=== PATIENT | male | born 1965 | race Hispanic/Latino ===

== ENCOUNTER 2017-05-25 13:36 | Inpatient (IN) | payer BC ==
[~2017-05-25] VITALS: Ht 175.3 cm; Wt 110.7 kg
[2017-05-25] MEDS ORDERED: ASPIRIN 81 MG CHEW TAB ONE (14:30)
[2017-05-25] MEDS ORDERED: ASPIRIN 81 MG CHEW TAB PO ONE (14:30)
[2017-05-25] MEDS ORDERED: SODIUM CHLORIDE 0.9% 1000ML 1,000 ML IV ONE (14:30)
[2017-05-25] MEDS ORDERED: SODIUM CHLORIDE 0.9% 1000ML 1,000 ML ONE (14:30)
[2017-05-25] MEDS ORDERED: DILTIAZEM HCL VIAL 5 ML ONE (14:37)
[2017-05-25] MEDS ORDERED: DILTIAZEM HCL 5 MG/ML 5 ML VIAL IV STA ×2 (14:37→15:02)
--- NOTE | 2017-05-25 14:56 | Diagnostic Imaging Report ---
PROCEDURE: CHEST SINGLE (PORTABLE) COMPARISON: None. INDICATIONS: SHORTNESS OF BREATH, AFIB FINDINGS: LUNGS: Mild-moderate pulmonary vascular congestion. PLEURA: No effusions or pneumothorax. HEART \T\ MEDIASTINUM: The heart is mildly enlarged.. BONES \T\ SOFT TISSUES: No acute findings. CONCLUSION: Cardiomegaly with pulmonary vascular congestion. Eugene Ayaal D.O. Dictated by: Eugene Ayala D.O. on 05/25/2017 at 14:55 Electronically approved by: Eugene Ayala D.O. on 05/25/2017 at 14:55
[2017-05-25 15:30] LABS: HEMATOCRIT 39.9 % (38.2-49.6); HEMOGLOBIN 12.9 g/dL (14.0-18.0); MEAN CORPUSCULAR HEMOGLOBIN 31.5 pg (28-32); MEAN CORPUSCULAR HGB CONC 32.3 g/dL (31-35); MEAN CORPUSCULAR VOLUME 97.6 fL (81-99); PLATELET COUNT 277 x10e3/uL (140-360); RED BLOOD COUNT 4.09 x10e6/uL (4.3-5.7); RED CELL DISTRIBUTION WIDTH 12.7 % (11.7-14.4)
[2017-05-25 15:49] LABS: ALANINE AMINOTRANSFERASE 53 IU/L (0-55); ALBUMIN 3.3 g/dL (3.5-5.0); ALBUMIN/GLOBULIN RATIO 0.9 (0.8-2.0); ALKALINE PHOSPHATASE 107 IU/L (40-150); ANION GAP 14.3 mmol/L (8-16); BLOOD UREA NITROGEN 22 mg/dL (7-26); BUN/CREATININE RATIO 28 (6-25); CALCIUM 8.7 mg/dL (8.4-10.2); CARBON DIOXIDE 23 mmol/L (22-29); CHLORIDE 108 mmol/L (98-107); CREATINE KINASE 48 IU/L (30-200); EST GLOMERULAR FILTRATION RATE > 60 ML/MIN (60-); GLUCOSE 92 mg/dL (74-118); MAGNESIUM 1.8 MG/DL (1.3-2.1); POTASSIUM 4.3 mmol/L (3.5-5.1); SODIUM 141 mmol/L (136-145)
[2017-05-25 16:43] LABS: EOSINOPHILS % (MANUAL) 4 % (0-7); LYMPHOCYTES % (MANUAL) 19 % (19-48); MONOCYTES % (MANUAL) 10 % (3.4-9.0); NEUTROPHILS % (MANUAL) 67 % (40-74); PLATELET ESTIMATE ADEQUATE; POLYCHROMASIA FEW; RBC MORPHOLOGY COMMENT NORMAL
[2017-05-25] MEDS: DILTIAZEM HCL 100 ML IV SCH (17:03)
[2017-05-25] MEDS ORDERED: DIGOXIN INJ 0.25 MG/ML 2 ML AMP IV ONE (18:15)
[2017-05-25] MEDS ORDERED: ENOXAPARIN SODIUM INJ 100 MG/ML SYR SC STA (18:24)
[2017-05-25] MEDS ORDERED: ONDANSETRON HCL INJ 2 MG/ML VIAL IV PRN (19:00)
--- OUTSIDE RECORDS SUMMARY | 2017-05-25 19:16 | XMS REPORT ---
Author Author [facility] Address Unknown Phone Unavailable Care Team Providers Care Taker [place] Name Role Phone EUGENIA JONES Unavailable Unavailable Problems This patient has no known problems. Allergies, Adverse Reactions, Alerts This patient has no known allergies or adverse reactions. Medications This patient has no known medications. Results Test Description Test Time Test Comments Text Results Atomic Results Result Comments CHEST SINGLE (PORTABLE) [place] [address] Patient Name: JOSE DAVID PRESCOTT MR #: [id number] : 1965 Age/Sex: 52/M Req #: [id number] Adm Physician: Ordered by: EUGENIA JONES MD Report #: [id number] Location: ER Room/Bed: Procedure: [id number] DX/CHEST SINGLE (PORTABLE) Exam Date: 05/25/17 Exam Time: 1445 REPORT STATUS: Signed PROCEDURE: CHEST SINGLE (PORTABLE) COMPARISON: None. INDICATIONS: SHORTNESS OF BREATH, AFIB FINDINGS: LUNGS: Mild-moderate pulmonary vascular congestion. PLEURA: No effusions or pneumothorax. HEART T MEDIASTINUM: The heart is mildly enlarged.. BONES T SOFT TISSUES: No acute findings. CONCLUSION: Cardiomegaly with pulmonary vascular congestion. Rusty Turpin D.O. Dictated by: Rusty Turpin D.O. on 05/25/2017 at 14:55 Electronically approved by: Rusty Turpin D.O. on 05/25/2017 at 14:55 Dictated By: RUSTY TURPNI DO 1455 Transcribed By: UMBERTO on 05/25/17 [id number] COPY TO: EUGENIA JONES MD
[2017-05-25] MEDS ORDERED: AMIODARONE HCL 360MG 200 ML IV SCH ×2 (20:00)
[2017-05-25] MEDS ORDERED: AMIODARONE HCL 150MG 100 ML IV SCH (20:00)
[2017-05-25] MEDS ORDERED: AMIODARONE 900MG 500 ML IV ONE (20:02)
[2017-05-25] MEDS ORDERED: AMIODARONE HCL 100 ML IV ONE ×2 (20:02)
[2017-05-25] MEDS ORDERED: IOPAMIDOL 370 MG/ML 200 ML INFUS..BTL INJ ONE (20:11)
[2017-05-25] MEDS ORDERED: SODIUM CHLORIDE 0.9% 50ML 50 ML ONE (20:11)
--- NOTE | 2017-05-25 20:14 | Diagnostic Imaging Report ---
ADDENDUM #1 Addendum: Impression #5: As described in the body of the report there is a 1.9 cm indeterminate solid pulmonary nodule. Recommend follow-up in 3 months. Signed by: Dr. Gabby Hummel M.D. on 05/25/2017 8:45 PM ORIGINAL REPORT EXAM: CT Chest WITH contrast 05/25/2017 5:32 PM INDICATION: \S\chest pain r/o PE \[id number] \S\1840 COMPARISON: Chest radiograph from 05/25/2017 TECHNIQUE: Abdomen and pelvis were scanned utilizing a multidetector helical scanner from the lung base to the pubic symphysis after administration of IV contrast. Pulmonary embolism protocol was obtained. Coronal and sagittal reformations were obtained. IV CONTRAST: 100 mL Omnipaque 300 ORAL CONTRAST: None COMPLICATIONS: None RADIATION DOSE: Total DLP: 589.97 mGy*cm Estimated effective dose: (DLP x 0.015 x size factor) mSv CTDIvol has been reviewed. It is below the limits set by the Radiation Protocol Committee (RPC). FINDINGS: LINES/ TUBES: None. PULMONARY ARTERIES: No filling defects within the main pulmonary artery and major branches. Few small filling defects in several segmental and subsegmental branches within the right upper, right lower, and left upper lobes. For example on series 2, images 52, 68, and 56. The main pulmonary arteries enlarged measuring 3.6 cm in diameter. LUNGS AND AIRWAYS: Diffuse bilateral pulmonary edema. Pleural-based groundglass opacity measuring 1.5 cm in the right upper lobe on series 3, image 38 may represent a pulmonary infarct. Indeterminate 1.9 cm solid pulmonary nodule in the superior segment of the left lower lobe (series 3, image 35). A few additional subcentimeter solid pulmonary nodules, for example a 9 mm nodule in the left upper lobe on image 50 PLEURA: Small bilateral low-attenuation pleural effusions, right greater than left. No pneumothorax. HEART AND MEDIASTINUM: The thyroid gland is normal. Multiple mildly enlarged mediastinal and bilateral hilar lymph nodes. For example: * 1.6 cm right lower paratracheal lymph node on series 2, image 47 * 1.9 cm right hilar lymph node on series 2, image 53 * 1.3 cm subcarinal lymph node on series 2, image 50. Biatrial enlargement. Left ventricle appears also enlarged. Right ventricle is within normal limits. There is no pericardial effusion. Mild to moderate atherosclerotic calcifications throughout the LAD. The thoracic aorta is unremarkable. UPPER ABDOMEN: Postsurgical changes within the partially visualized the stomach. Indeterminate hypodense lesions within the spleen. BONES: The visualized bony thorax is within normal limits. SOFT TISSUES: Unremarkable. IMPRESSION: 1. Pulmonary embolism within a few segmental and subsegmental branches. 2. Enlarged pulmonary artery suggestive of pulmonary hypertension. No RV strain. 3. Biatrial and left ventricular enlargement with diffuse pulmonary edema and bilateral pleural effusions, more than expected for the small pulmonary embolism burden. 4. Diffuse mediastinal and bilateral hilar lymphadenopathy, of indeterminate significance. Recommend follow-up CT chest after treatment to exclude superimposed cardiomyopathy and/or autoimmune disease. These findings were communicated to Dr. Tirado on 05/25/2017 at 7:30 PM. Signed by: Dr. Gabby Hummel M.D. on 05/25/2017 8:11 PM
[2017-05-25] MEDS: AMIODARONE 900MG 500 ML IV SCH (20:24)
[2017-05-25 22:55] LABS: CREATINE KINASE MB 0.4 ng/mL (0-5.0)
[2017-05-26] VITALS (24 sets, daily range): BP systolic 73–157; BP diastolic 53–143
[2017-05-26] MEDS: LORAZEPAM INJ 2 MG/ML VIAL IV PRN ×2 (02:30→19:20)
--- NOTE | 2017-05-26 02:33 | Diagnostic Imaging Report ---
EXAM: CHEST SINGLE (PORTABLE), AP 1 view INDICATION: Shortness of breath COMPARISON: CT of the chest May 25, 2017 FINDINGS: LINES/TUBES: None LUNGS: Airspace opacities bilaterally. PLEURA: Small layering bilateral pleural effusions. HEART AND MEDIASTINUM: Stable enlargement of the cardiomediastinal silhouette and central pulmonary vessels. BONES AND SOFT TISSUES: No acute findings. IMPRESSION: Cardiomegaly, pulmonary edema and small layering bilateral pleural effusions. Signed by: Dr. Niurka Dockery M.D. on 05/26/2017 2:29 AM
[2017-05-26 05:38] LABS: BASOPHILS % 0.2 % (0.0-1.0); EOSINOPHILS # (AUTO) 0.1 (0.0-0.4); EOSINOPHILS % 1.1 % (0.0-6.0); HEMATOCRIT 37.8 % (38.2-49.6); HEMOGLOBIN 12.7 g/dL (14.0-18.0); LYMPHOCYTES # (AUTO) 1.9 (1.0-3.2); LYMPHOCYTES % 22.2 % (18.0-39.1); MEAN CORPUSCULAR HEMOGLOBIN 31.9 pg (28-32); MEAN CORPUSCULAR HGB CONC 33.6 g/dL (31-35); MONOCYTES # (AUTO) 0.7 (0.2-0.8); MONOCYTES % 7.9 % (4.4-11.3); NEUTROPHILS # (AUTO) 5.8 (2.1-6.9); NEUTROPHILS % 68.4 % (38.7-80.0); PLATELET COUNT 262 x10e3/uL (140-360); RED BLOOD COUNT 3.98 x10e6/uL (4.3-5.7); RED CELL DISTRIBUTION WIDTH 12.6 % (11.7-14.4)
[2017-05-26 06:01] LABS: ALANINE AMINOTRANSFERASE 259 IU/L (0-55); ALBUMIN 3.2 g/dL (3.5-5.0); ALBUMIN/GLOBULIN RATIO 0.9 (0.8-2.0); ALKALINE PHOSPHATASE 109 IU/L (40-150); ANION GAP 15.2 mmol/L (8-16); BLOOD UREA NITROGEN 21 mg/dL (7-26); BUN/CREATININE RATIO 30 (6-25); CALCIUM 8.4 mg/dL (8.4-10.2); CARBON DIOXIDE 18 mmol/L (22-29); CHLORIDE 110 mmol/L (98-107); CREATININE, SERUM 0.71 mg/dL (0.72-1.25); EST GLOMERULAR FILTRATION RATE > 60 ML/MIN (60-); GLUCOSE 99 mg/dL (74-118); POTASSIUM 4.2 mmol/L (3.5-5.1); SODIUM 139 mmol/L (136-145)
[2017-05-26 06:02] LABS: CREATINE KINASE MB 0.4 ng/mL (0-5.0)
[2017-05-26] MEDS: ENOXAPARIN SODIUM INJ 100 MG/ML SYR SC SCH ×3 (06:45→21:00)
[2017-05-26] MEDS: ASPIRIN 325 MG TAB EC PO SCH (11:16)
[2017-05-26] MEDS: FUROSEMIDE INJ 10 MG/ML 4 ML VIAL IV SCH ×2 (11:16→21:00)
[2017-05-26 12:55] LABS: CREATINE KINASE MB 0.4 ng/mL (0-5.0)
[2017-05-26] MEDS ORDERED: METOPROLOL TARTRATE INJ 1 MG/ML VIAL IV PRN (15:00)
[2017-05-26] MEDS ORDERED: HYDRALAZINE HCL 20 MG/ML VIAL IV PRN (15:00)
[2017-05-26] MEDS ORDERED: CEFTRIAXONE SOD 1 GM/NS 50 ML 50 ML IV SCH (15:30)
[2017-05-26 16:19] LABS: CHOL/HDL RATIO 3.6 (3.9-4.7); MAGNESIUM 1.8 MG/DL (1.3-2.1); PHOSPHORUS 3.5 MG/DL (2.3-4.7)
[2017-05-26] MEDS: DILTIAZEM HCL 100 ML IV SCH (16:30)
[2017-05-26 16:40] LABS: FREE THYROXINE INDEX 2.382 (1.4-3.8); THYROID STIMULATING HORMONE 1.707 uIU/mL (0.350-4.940)
[2017-05-26] MEDS: AMIODARONE HCL 200 MG TAB PO SCH (18:06)
[2017-05-26] MEDS: CEFTRIAXONE SOD 1 GM VIAL IV SCH (18:06)
[2017-05-26] MEDS: FAMOTIDINE 20 MG TAB PO SCH (18:06)
[2017-05-26] MEDS: GUAIFENESIN 600MG/DEXTROMETHORPHAN 30MG TABSR PO SCH (18:06)
[2017-05-26] MEDS: AZITHROMYCIN 500MG/NS 250 ML 250 ML IV SCH (18:06)
[2017-05-26] MEDS: ALBUTEROL/IPRATROPIUM 3 ML NEB NEB SCH (19:00)
[2017-05-26] MEDS: AMIODARONE 900MG 500 ML IV SCH (21:01)
--- NOTE | 2017-05-26 21:53 | History and Physical ---
DATE OF : 1965 PRIMARY CARE PROVIDER: Dr. Chai Tavares. CHIEF COMPLAINT: Shortness of breath. HISTORY OF PRESENT ILLNESS: Mr. García is a 52-year-old gentleman who has a history of gastric bypass surgery about 8 years ago, has no other past medical history. About 3 weeks ago, the patient started feeling poorly with upper respiratory symptoms of viral syndrome. A few days ago, he was seen by his PCP and was started on antibiotics for pneumonia. For the last 4 days, he has had progressive shortness of breath, dyspnea with exertion, orthopnea, and some palpitations. REVIEW OF SYSTEMS: He denies fever, chills, or weight loss. He denies sinus congestion or sore throat. He denies chest pain, but has had palpitations. He has shortness of breath. He denies wheezing. He has had a nonproductive cough. He denies abdominal pain, nausea, vomiting, or melena. He denies dysuria or flank pain. He denies rash or pruritus. He denies joint pain or swelling. He denies bleeding or bruising. He denies headache, vertigo, or loss of consciousness. He denies depression, agitation, homicide or suicidal ideation. PAST MEDICAL HISTORY: Essentially negative. The patient has no chronic medical issues. He is on no chronic medication. He has a history of gastric bypass as noted. He has never smoked. ALLERGIES: HE HAS NO KNOWN DRUG ALLERGIES. FAMILY HISTORY: Unremarkable. SOCIAL HISTORY: He is . He is bilingual, speaks good [place]. He has does not smoke, drink, or use illegal drugs and he is generally independently functioning. PHYSICAL EXAMINATION PSYCHIATRIC: He is alert and oriented times 3 with normal mood and affect. CONSTITUTIONAL: He has a normal body habitus. He is in no acute distress. VITAL SIGNS: Blood pressure 120/84, pulse 89 and irregular. His initial blood pressure 102/84. His initial heart rate 146 to 152 in a rapid AFib. His respiratory rate 18, O2 sat 96% on 2 liters nasal cannula, temperature 98.4. HEENT: His head is atraumatic. His eyes are anicteric with clear conjunctivae. Ears and nose are without erythema or discharge. Oropharynx is clear. NECK: Supple with no mass or thyromegaly. LYMPHATIC: He has no palpable cervical, axillary, or inguinal adenopathy. CARDIOVASCULAR: His heart has an irregularly irregular rhythm. It was tachycardic. His heart rate is now controlled around 89. He has no murmur. He has no carotid bruit. He has no peripheral edema. He has palpable dorsal pedal pulse. RESPIRATORY: Lungs clear to auscultation percussion with normal respiratory effort. GASTROINTESTINAL: His abdomen is soft without organomegaly masses or tenderness. He has normal bowel sounds present. CUTANEOUS: His skin is warm and dry to touch with no rash or skin breakdown. MUSCULOSKELETAL: His joints are in normal alignment without erythema or swelling. He has no calf tenderness. NEUROLOGIC: Nonfocal with intact cranial nerves and no motor or sensory deficits. DIAGNOSTIC STUDIES: His chest x-ray shows cardiomegaly and pulmonary vascular congestion, some pulmonary edema, and bilateral small effusions. CT scan of the chest was positive for pulmonary embolus in segmental and subsegmental branches. It also showed cardiomegaly, it showed diffuse mediastinal and bilateral hilar adenopathy of uncertain etiology. His echocardiogram showed dilated chambers and an ejection fraction of 25-30%. His TSH 1.567. Troponin 0.006, 0.006, 0.005, and 0.001. His BNP 530.2. D-dimer 2.25, which is elevated. His CBC shows a white count of 8.45 with a normal differential, hemoglobin 12.7, hematocrit 37.8, and platelet count 262,000. His chemistry shows normal electrolytes. CO2 of 18, creatinine 0.71, BUN 21 for a normal GFR. Calcium is 8.4. Glucose is 99. His transaminases and bilirubin are all elevated. His AST is 405. His ALT is 259. Bilirubin is 1.4 and alk phos is 109. IMPRESSION AND PLAN 1. New onset atrial fibrillation with rapid ventricular response. The patient was initially started on intravenous Cardizem drip. Cardiology was consulted,. Intravenous amiodarone was added. The patient is now rate controlled and he has been switched over to p.o. amiodarone. An echocardiogram was ordered, the results noted above. Cardiology also started lisinopril 10 mg daily. 2. Acute pulmonary embolus. The patient has been started on weight-based Lovenox 1 mg/kg q.12 hours, will transition to Xarelto when patient is stable or Eliquis. 3. New onset systolic congestive heart failure. Apparent cardiomyopathy, which appears to be new onset. The patient was started on intravenous Lasix 40 mg q.12 hours. The echo was ordered, results are noted above. He has also been started on lisinopril 10 mg daily by cardiology. 4. Partially treated pneumonia. Will continue intravenous Zithromax, Rocephin, and neb treatments for pneumonia. 5. Elevated liver enzymes. Possibly due to passive congestion. Will get an ultrasound to rule out parenchymal disease and check an acute hepatitis panel to rule out viral hepatitis. 6. For prophylaxis, the patient is already on Lovenox for his pulmonary embolism that will serve for deep venous thrombosis prophylaxis and he will be started on Pepcid for gastrointestinal prophylaxis. Job#: [id number] ROSIO
[2017-05-27] VITALS (80 sets, daily range): BP systolic 53–120; BP diastolic 28–107
[2017-05-27] MEDS: ALBUTEROL/IPRATROPIUM 3 ML NEB NEB SCH ×4 (01:00→19:25)
[2017-05-27] MEDS: CEFTRIAXONE SOD 1 GM VIAL IV SCH ×2 (05:45→17:35)
[2017-05-27] MEDS: GUAIFENESIN 600MG/DEXTROMETHORPHAN 30MG TABSR PO SCH ×4 (05:56→17:36)
[2017-05-27] MEDS: LORAZEPAM INJ 2 MG/ML VIAL IV PRN ×3 (06:15→22:15)
[2017-05-27 06:20] LABS: BASOPHILS % 0.4 % (0.0-1.0); EOSINOPHILS # (AUTO) 0.1 (0.0-0.4); EOSINOPHILS % 1.3 % (0.0-6.0); HEMATOCRIT 36.7 % (38.2-49.6); HEMOGLOBIN 12.4 g/dL (14.0-18.0); LYMPHOCYTES # (AUTO) 2.6 (1.0-3.2); LYMPHOCYTES % 27.9 % (18.0-39.1); MEAN CORPUSCULAR HEMOGLOBIN 31.8 pg (28-32); MEAN CORPUSCULAR HGB CONC 33.8 g/dL (31-35); MEAN CORPUSCULAR VOLUME 94.1 fL (81-99); MONOCYTES # (AUTO) 0.8 (0.2-0.8); MONOCYTES % 8.8 % (4.4-11.3); NEUTROPHILS # (AUTO) 5.8 (2.1-6.9); NEUTROPHILS % 61.3 % (38.7-80.0); PLATELET COUNT 245 x10e3/uL (140-360); RED CELL DISTRIBUTION WIDTH 12.7 % (11.7-14.4)
[2017-05-27 06:47] LABS: ANION GAP 14.5 mmol/L (8-16); BLOOD UREA NITROGEN 21 mg/dL (7-26); BUN/CREATININE RATIO 27 (6-25); CALCIUM 8.2 mg/dL (8.4-10.2); CARBON DIOXIDE 22 mmol/L (22-29); CHLORIDE 106 mmol/L (98-107); CREATININE, SERUM 0.78 mg/dL (0.72-1.25); EST GLOMERULAR FILTRATION RATE > 60 ML/MIN (60-); GLUCOSE 101 mg/dL (74-118); MAGNESIUM 1.5 MG/DL (1.3-2.1); POTASSIUM 3.5 mmol/L (3.5-5.1); SODIUM 139 mmol/L (136-145)
[2017-05-27] MEDS: AMIODARONE HCL 200 MG TAB PO SCH ×2 (08:06→17:36)
[2017-05-27] MEDS: LISINOPRIL 10 MG TAB PO SCH (08:06)
[2017-05-27] MEDS: ASPIRIN 325 MG TAB EC PO SCH (08:06)
[2017-05-27] MEDS: FUROSEMIDE INJ 10 MG/ML 4 ML VIAL IV SCH ×2 (08:06→21:21)
[2017-05-27] MEDS: FAMOTIDINE 20 MG TAB PO SCH ×2 (08:06→17:36)
[2017-05-27] MEDS: ENOXAPARIN SODIUM INJ 100 MG/ML SYR SC SCH ×2 (08:07→21:21)
[2017-05-27] MEDS: AZITHROMYCIN 500MG/NS 250 ML 250 ML IV SCH (17:36)
[2017-05-28] VITALS (31 sets, daily range): BP systolic 86–138; BP diastolic 4–114
[2017-05-28] MEDS: GUAIFENESIN 600MG/DEXTROMETHORPHAN 30MG TABSR PO SCH ×4 (00:36→17:24)
[2017-05-28] MEDS: ALBUTEROL/IPRATROPIUM 3 ML NEB NEB SCH ×5 (01:00→20:35)
[2017-05-28] MEDS: CEFTRIAXONE SOD 1 GM VIAL IV SCH ×2 (05:30→17:24)
[2017-05-28] MEDS: AMIODARONE 900MG 500 ML IV SCH ×2 (06:07→20:15)
[2017-05-28 06:16] LABS: BASOPHILS % 0.2 % (0.0-1.0); EOSINOPHILS # (AUTO) 0.2 (0.0-0.4); EOSINOPHILS % 1.7 % (0.0-6.0); HEMATOCRIT 35.7 % (38.2-49.6); LYMPHOCYTES # (AUTO) 2.4 (1.0-3.2); LYMPHOCYTES % 27.4 % (18.0-39.1); MEAN CORPUSCULAR HEMOGLOBIN 32.3 pg (28-32); MEAN CORPUSCULAR HGB CONC 33.6 g/dL (31-35); MONOCYTES # (AUTO) 0.7 (0.2-0.8); MONOCYTES % 8.1 % (4.4-11.3); NEUTROPHILS # (AUTO) 5.5 (2.1-6.9); NEUTROPHILS % 62.3 % (38.7-80.0); PLATELET COUNT 217 x10e3/uL (140-360); RED BLOOD COUNT 3.72 x10e6/uL (4.3-5.7); RED CELL DISTRIBUTION WIDTH 12.8 % (11.7-14.4)
[2017-05-28 06:55] LABS: ANION GAP 12.1 mmol/L (8-16); BLOOD UREA NITROGEN 21 mg/dL (7-26); BUN/CREATININE RATIO 28 (6-25); CARBON DIOXIDE 25 mmol/L (22-29); CHLORIDE 101 mmol/L (98-107); CREATININE, SERUM 0.75 mg/dL (0.72-1.25); EST GLOMERULAR FILTRATION RATE > 60 ML/MIN (60-); GLUCOSE 93 mg/dL (74-118); MAGNESIUM 1.5 MG/DL (1.3-2.1); POTASSIUM 3.1 mmol/L (3.5-5.1); SODIUM 135 mmol/L (136-145)
[2017-05-28] MEDS: FUROSEMIDE INJ 10 MG/ML 4 ML VIAL IV SCH ×2 (08:21→20:05)
[2017-05-28] MEDS: AMIODARONE HCL 200 MG TAB PO SCH ×2 (08:21→17:24)
[2017-05-28] MEDS: ENOXAPARIN SODIUM INJ 100 MG/ML SYR SC SCH ×2 (08:21→21:00)
[2017-05-28] MEDS: METOPROLOL TARTRATE 25 MG TAB PO SCH (08:21)
[2017-05-28] MEDS: ASPIRIN 325 MG TAB EC PO SCH (08:21)
[2017-05-28] MEDS: LISINOPRIL 10 MG TAB PO SCH (08:21)
[2017-05-28] MEDS: FAMOTIDINE 20 MG TAB PO SCH ×2 (08:21→17:24)
[2017-05-28] MEDS ORDERED: POTASSIUM CHLORIDE 20 MEQ TAB CR PO ONE (08:25)
--- NOTE | 2017-05-28 09:07 | Progress Note ---
DATE: May 28, 2017 TIME: 8:06 a.m. OVERNIGHT: No chest pain. No shortness of breath. REVIEW OF SYSTEMS: He denies any dizziness. VITAL SIGNS: Reviewed. PHYSICAL EXAMINATION GENERAL: A tired-appearing man resting in bed. HEENT: Anicteric. CARDIOVASCULAR: Normal S1 and S2. LUNGS: Moderate breath sounds. ABDOMEN: Soft, nontender, nondistended. EXTREMITIES: No edema or calf tenderness. NEUROLOGIC: Alert and oriented times 3. Moving all extremities. SKIN: Dry. PSYCHIATRIC: Normal affect. LABS: Reviewed. MEDICATIONS: Reviewed. ASSESSMENT: This is a 52-year-old man. 1. Atrial fibrillation. 2. Acute pulmonary embolism. 3. Obesity. 4. Pneumonia. 5. Acute transaminitis. 6. Systolic congestive heart failure. Left ventricular ejection fraction 25% to 30%. 7. Moderate tricuspid regurgitation and mitral regurgitation. 8. Normocytic anemia, mild. 9. Hypokalemia. 10. Bilateral pleural effusions in the setting of systolic congestive heart failure. PLAN 1. Stress test pending tomorrow. 2. Continue IV amiodarone. 3. Continue ceftriaxone and azithromycin for pneumonia. 4. Continue Lovenox treatment dose b.i.d. 5. Continue Pepcid while on Lovenox. 6. Continue aspirin 325 mg and AVA inhibitor. 7. Monitor closely in the ICU. Critical care time more than 35 minutes. Job#: [id number]
[2017-05-28] MEDS ORDERED: REGADENOSON 0.4 MG/5 ML SYR IV ONE (16:35)
[2017-05-28] MEDS: AZITHROMYCIN 500MG/NS 250 ML 250 ML IV SCH (17:24)
[2017-05-28] MEDS: LORAZEPAM INJ 2 MG/ML VIAL IV PRN (18:33)
[2017-05-28 19:19] LABS: ABG HCO3 27 mmol/L (23-28); ABG PCO2 31 mmHg (41-51); ABG PH 7.53 (7.31-7.41); ABG PO2 270 mmHg (80-105)
--- NOTE | 2017-05-28 19:28 | Diagnostic Imaging Report ---
A single frontal view of the chest. HISTORY: A. Fib COMPARISON: Chest radiograph May 26, 2017 DISCUSSION: Portable technique, limits sensitivity of the exam. Soft tissue attenuation partially limits sensitivity of the exam. Left anterior oblique rotation. Overlying monitoring leads. Tubes/Lines: None Lungs and pleura: Low lung volumes result in bibasilar vascular crowding, accentuation of the pulmonary interstitial markings, central pulmonary vasculature, and the cardiac silhouette. Allowing for these limitations, the findings are as follows: Patchy bilateral interstitial and airspace opacities, right greater than left. Small layering effusions, right greater than left. Heart and mediastinum: The cardiac silhouette and central pulmonary vasculature remain enlarged. Bones: No acute osseous lesion is identified, given this limited exam. IMPRESSION: Findings remain compatible with stable cardiomegaly, pulmonary edema, and small layering effusions right greater than left. Signed by: Dr. Juan Fish D.O., M.M.M. on 05/28/2017 7:24 PM
[2017-05-28] MEDS ORDERED: FUROSEMIDE INJ 10 MG/ML 4 ML VIAL IV ONE (19:30)
[2017-05-29] VITALS (23 sets, daily range): BP systolic 82–112; BP diastolic 30–93
[2017-05-29] MEDS: CEFTRIAXONE SOD 1 GM VIAL IV SCH ×2 (05:30→16:31)
[2017-05-29] MEDS: GUAIFENESIN 600MG/DEXTROMETHORPHAN 30MG TABSR PO SCH ×5 (05:37→23:46)
[2017-05-29] MEDS: ALBUTEROL/IPRATROPIUM 3 ML NEB NEB SCH ×2 (06:45→19:00)
[2017-05-29] MEDS: FAMOTIDINE 20 MG TAB PO SCH ×2 (07:58→16:29)
[2017-05-29] MEDS: METOPROLOL TARTRATE 25 MG TAB PO SCH (08:01)
[2017-05-29] MEDS: AMIODARONE HCL 200 MG TAB PO SCH ×2 (08:01→16:31)
[2017-05-29] MEDS: ENOXAPARIN SODIUM INJ 100 MG/ML SYR SC SCH ×2 (08:01→21:19)
[2017-05-29] MEDS: ASPIRIN 325 MG TAB EC PO SCH (08:01)
[2017-05-29] MEDS: FUROSEMIDE INJ 10 MG/ML 4 ML VIAL IV SCH ×2 (08:01→21:19)
[2017-05-29] MEDS: LISINOPRIL 10 MG TAB PO SCH (08:02)
--- NOTE | 2017-05-29 10:39 | Diagnostic Imaging Report ---
PROCEDURE:ABDOMINAL ULTRASOUND COMPARISON:[facility], CT, CT CHEST W, 05/25/2017, 18:48. INDICATIONS:Elevated Liver Enzymes FINDINGS: Liver: Measures 18.4 cm with normal hepatic parenchymal echogenicity. No focal mass. Main portal vein: Measures 1.3 cm with normal hepatopedal flow. Gallbladder: No stones or wall thickening. Common Bile Duct: Measures 0.4 cm with no echogenic filling defect. Sonographic Josue's sign: Negative Right kidney: Measures 11.9 x 6.1 x 6.0 cm. No solid or cystic mass, echogenic calculi or hydronephrosis. Normal parenchymal echogenicity. Left kidney: Measures 12.3 x 6.8 x 5.8 cm. No solid or cystic mass, echogenic calculi or hydronephrosis. Normal parenchymal echogenicity. Spleen: Measures 13.3 x 6.0 x 5.6 with a benign appearing simple cyst measuring 2.3 x 2.3 x 2.6 cm. Pancreas: Obscured Inferior vena cava: Normal. Aorta: Not well-seen Ascites: None. There is a right greater than left pleural effusion. CONCLUSION: 1. Hepatosplenomegaly without acute abnormality. 2. Benign-appearing splenic cyst. Eugene Ayala D.O. Dictated by: Eugene Ayala D.O. on 05/29/2017 at 10:38 Electronically approved by: Eugene Ayala D.O. on 05/29/2017 at 10:38
[2017-05-29 10:40] LABS: BASOPHILS % 0.4 % (0.0-1.0); EOSINOPHILS # (AUTO) 0.2 (0.0-0.4); EOSINOPHILS % 2.4 % (0.0-6.0); HEMATOCRIT 38.1 % (38.2-49.6); HEMOGLOBIN 12.8 g/dL (14.0-18.0); LYMPHOCYTES # (AUTO) 1.5 (1.0-3.2); LYMPHOCYTES % 19.8 % (18.0-39.1); MEAN CORPUSCULAR HEMOGLOBIN 31.7 pg (28-32); MEAN CORPUSCULAR HGB CONC 33.6 g/dL (31-35); MEAN CORPUSCULAR VOLUME 94.3 fL (81-99); MONOCYTES # (AUTO) 0.6 (0.2-0.8); MONOCYTES % 7.6 % (4.4-11.3); NEUTROPHILS # (AUTO) 5.2 (2.1-6.9); NEUTROPHILS % 69.5 % (38.7-80.0); PLATELET COUNT 260 x10e3/uL (140-360); RED BLOOD COUNT 4.04 x10e6/uL (4.3-5.7); RED CELL DISTRIBUTION WIDTH 12.7 % (11.7-14.4)
[2017-05-29 10:49] LABS: ANION GAP 14.5 mmol/L (8-16); BLOOD UREA NITROGEN 19 mg/dL (7-26); BUN/CREATININE RATIO 23 (6-25); CALCIUM 8.6 mg/dL (8.4-10.2); CARBON DIOXIDE 28 mmol/L (22-29); CHLORIDE 104 mmol/L (98-107); CREATININE, SERUM 0.81 mg/dL (0.72-1.25); EST GLOMERULAR FILTRATION RATE > 60 ML/MIN (60-); GLUCOSE 105 mg/dL (74-118); MAGNESIUM 1.6 MG/DL (1.3-2.1); POTASSIUM 3.5 mmol/L (3.5-5.1); SODIUM 143 mmol/L (136-145)
[2017-05-29] MEDS ORDERED: DIGOXIN INJ 0.25 MG/ML 2 ML AMP IV SCH (12:00)
[2017-05-29] MEDS: DIGOXIN INJ 0.25 MG/ML 2 ML AMP IV SCH ×3 (12:43→23:46)
[2017-05-29] MEDS: AZITHROMYCIN 500MG/NS 250 ML 250 ML IV SCH (17:00)
[2017-05-29] MEDS: AMIODARONE 900MG 500 ML IV SCH (20:15)
[2017-05-30] MEDS: ALBUTEROL/IPRATROPIUM 3 ML NEB NEB SCH ×4 (01:00→20:05)
[2017-05-30 04:38] VITALS: BP 120/84
[2017-05-30] MEDS: GUAIFENESIN 600MG/DEXTROMETHORPHAN 30MG TABSR PO SCH ×3 (05:22→17:14)
[2017-05-30] MEDS: CEFTRIAXONE SOD 1 GM VIAL IV SCH ×2 (05:22→17:08)
[2017-05-30 06:21] LABS: BASOPHILS % 0.5 % (0.0-1.0); EOSINOPHILS # (AUTO) 0.4 (0.0-0.4); EOSINOPHILS % 5.1 % (0.0-6.0); HEMATOCRIT 38.9 % (38.2-49.6); HEMOGLOBIN 12.8 g/dL (14.0-18.0); LYMPHOCYTES # (AUTO) 1.9 (1.0-3.2); LYMPHOCYTES % 24.3 % (18.0-39.1); MEAN CORPUSCULAR HEMOGLOBIN 31.4 pg (28-32); MEAN CORPUSCULAR HGB CONC 32.9 g/dL (31-35); MEAN CORPUSCULAR VOLUME 95.3 fL (81-99); MONOCYTES # (AUTO) 0.6 (0.2-0.8); MONOCYTES % 8.1 % (4.4-11.3); NEUTROPHILS # (AUTO) 4.7 (2.1-6.9); NEUTROPHILS % 61.7 % (38.7-80.0); PLATELET COUNT 247 x10e3/uL (140-360); RED BLOOD COUNT 4.08 x10e6/uL (4.3-5.7); RED CELL DISTRIBUTION WIDTH 12.4 % (11.7-14.4)
[2017-05-30 06:43] LABS: ALANINE AMINOTRANSFERASE 207 IU/L (0-55); ALBUMIN 2.7 g/dL (3.5-5.0); ALKALINE PHOSPHATASE 123 IU/L (40-150); ANION GAP 13.5 mmol/L (8-16); BLOOD UREA NITROGEN 21 mg/dL (7-26); BUN/CREATININE RATIO 27 (6-25); CALCIUM 8.5 mg/dL (8.4-10.2); CARBON DIOXIDE 28 mmol/L (22-29); CHLORIDE 106 mmol/L (98-107); CREATININE, SERUM 0.79 mg/dL (0.72-1.25); EST GLOMERULAR FILTRATION RATE > 60 ML/MIN (60-); GLUCOSE 95 mg/dL (74-118); MAGNESIUM 1.8 MG/DL (1.3-2.1); POTASSIUM 3.5 mmol/L (3.5-5.1); SODIUM 144 mmol/L (136-145)
[2017-05-30 07:14] LABS: BILIRUBIN,DIRECT 0.8 mg/dL (0.0-0.5)
[2017-05-30 07:17] VITALS: BP 97/85
[2017-05-30 11:04] VITALS: BP 120/95
[2017-05-30] MEDS: METOPROLOL TARTRATE 25 MG TAB PO SCH (11:07)
[2017-05-30] MEDS: ASPIRIN 325 MG TAB EC PO SCH (11:08)
[2017-05-30] MEDS: AMIODARONE HCL 200 MG TAB PO SCH ×2 (11:08→17:08)
[2017-05-30] MEDS: ENOXAPARIN SODIUM INJ 100 MG/ML SYR SC SCH ×2 (11:08→20:20)
[2017-05-30] MEDS: LISINOPRIL 10 MG TAB PO SCH (11:08)
[2017-05-30] MEDS: FUROSEMIDE INJ 10 MG/ML 4 ML VIAL IV SCH ×2 (11:08→20:48)
[2017-05-30] MEDS: DIGOXIN 0.125 MG TAB PO SCH (11:09)
[2017-05-30] MEDS: FAMOTIDINE 20 MG TAB PO SCH ×2 (11:12→17:08)
[2017-05-30 11:57] VITALS: BP 120/95
[2017-05-30 15:45] VITALS: BP 103/66
[2017-05-30] MEDS: AZITHROMYCIN 500MG/NS 250 ML 250 ML IV SCH (18:00)
[2017-05-30] MEDS: AMIODARONE 900MG 500 ML IV SCH (20:15)
[2017-05-30 20:30] VITALS: BP 120/64
[2017-05-31] VITALS (9 sets, daily range): BP systolic 78–103; BP diastolic 45–84
[2017-05-31] MEDS: ALBUTEROL/IPRATROPIUM 3 ML NEB NEB SCH ×4 (00:05→20:29)
[2017-05-31] MEDS: LORAZEPAM INJ 2 MG/ML VIAL IV PRN (00:10)
[2017-05-31] MEDS: CEFTRIAXONE SOD 1 GM VIAL IV SCH ×2 (05:07→17:16)
[2017-05-31] MEDS: GUAIFENESIN 600MG/DEXTROMETHORPHAN 30MG TABSR PO SCH ×4 (05:13→17:37)
[2017-05-31 06:11] LABS: BASOPHILS % 0.3 % (0.0-1.0); EOSINOPHILS # (AUTO) 0.5 (0.0-0.4); EOSINOPHILS % 5.8 % (0.0-6.0); HEMATOCRIT 44.1 % (38.2-49.6); HEMOGLOBIN 14.4 g/dL (14.0-18.0); LYMPHOCYTES # (AUTO) 2.2 (1.0-3.2); LYMPHOCYTES % 24.4 % (18.0-39.1); MEAN CORPUSCULAR HEMOGLOBIN 31.4 pg (28-32); MEAN CORPUSCULAR HGB CONC 32.7 g/dL (31-35); MEAN CORPUSCULAR VOLUME 96.1 fL (81-99); MONOCYTES # (AUTO) 0.8 (0.2-0.8); MONOCYTES % 8.9 % (4.4-11.3); NEUTROPHILS # (AUTO) 5.4 (2.1-6.9); NEUTROPHILS % 60.3 % (38.7-80.0); PLATELET COUNT 289 x10e3/uL (140-360); RED BLOOD COUNT 4.59 x10e6/uL (4.3-5.7); RED CELL DISTRIBUTION WIDTH 12.4 % (11.7-14.4)
[2017-05-31 06:53] LABS: ANION GAP 14.1 mmol/L (8-16); BLOOD UREA NITROGEN 19 mg/dL (7-26); BUN/CREATININE RATIO 19 (6-25); CARBON DIOXIDE 32 mmol/L (22-29); CHLORIDE 100 mmol/L (98-107); CREATININE, SERUM 0.98 mg/dL (0.72-1.25); EST GLOMERULAR FILTRATION RATE > 60 ML/MIN (60-); GLUCOSE 93 mg/dL (74-118); POTASSIUM 4.1 mmol/L (3.5-5.1); SODIUM 142 mmol/L (136-145)
[2017-05-31] MEDS: ENOXAPARIN SODIUM INJ 100 MG/ML SYR SC SCH (08:27)
[2017-05-31] MEDS: ASPIRIN 325 MG TAB EC PO SCH (08:33)
[2017-05-31] MEDS: AMIODARONE HCL 200 MG TAB PO SCH ×2 (08:34→16:46)
[2017-05-31] MEDS: FUROSEMIDE INJ 10 MG/ML 4 ML VIAL IV SCH ×3 (08:34→21:00)
[2017-05-31] MEDS: FAMOTIDINE 20 MG TAB PO SCH ×2 (08:35→16:46)
[2017-05-31] MEDS: DIGOXIN 0.125 MG TAB PO SCH (08:42)
[2017-05-31] MEDS: METOPROLOL TARTRATE 25 MG TAB PO SCH (08:57)
[2017-05-31] MEDS: LISINOPRIL 10 MG TAB PO SCH (08:58)
[2017-05-31] MEDS: AZITHROMYCIN 500MG/NS 250 ML 250 ML IV SCH (17:36)
[2017-05-31] MEDS: ACETAMINOPHEN 325 MG TAB PO PRN (20:50)
[2017-06-01 00:10] VITALS: BP 106/79
[2017-06-01] MEDS: GUAIFENESIN 600MG/DEXTROMETHORPHAN 30MG TABSR PO SCH ×4 (00:45→17:27)
[2017-06-01] MEDS: ALBUTEROL/IPRATROPIUM 3 ML NEB NEB SCH ×4 (01:45→19:40)
[2017-06-01] MEDS: LORAZEPAM INJ 2 MG/ML VIAL IV PRN ×2 (03:03→23:12)
[2017-06-01] MEDS: CEFTRIAXONE SOD 1 GM VIAL IV SCH ×2 (05:48→17:27)
[2017-06-01 06:10] LABS: BASOPHILS % 0.5 % (0.0-1.0); EOSINOPHILS # (AUTO) 0.5 (0.0-0.4); EOSINOPHILS % 6.1 % (0.0-6.0); HEMATOCRIT 43.3 % (38.2-49.6); HEMOGLOBIN 14.2 g/dL (14.0-18.0); LYMPHOCYTES # (AUTO) 2.1 (1.0-3.2); LYMPHOCYTES % 27.7 % (18.0-39.1); MEAN CORPUSCULAR HEMOGLOBIN 31.3 pg (28-32); MEAN CORPUSCULAR HGB CONC 32.8 g/dL (31-35); MEAN CORPUSCULAR VOLUME 95.6 fL (81-99); MONOCYTES # (AUTO) 0.7 (0.2-0.8); MONOCYTES % 8.6 % (4.4-11.3); NEUTROPHILS # (AUTO) 4.3 (2.1-6.9); NEUTROPHILS % 56.7 % (38.7-80.0); PLATELET COUNT 276 x10e3/uL (140-360); RED BLOOD COUNT 4.53 x10e6/uL (4.3-5.7); RED CELL DISTRIBUTION WIDTH 12.3 % (11.7-14.4)
[2017-06-01 06:38] LABS: ANION GAP 13.3 mmol/L (8-16); BLOOD UREA NITROGEN 26 mg/dL (7-26); BUN/CREATININE RATIO 32 (6-25); CALCIUM 8.9 mg/dL (8.4-10.2); CARBON DIOXIDE 28 mmol/L (22-29); CHLORIDE 105 mmol/L (98-107); CREATININE, SERUM 0.81 mg/dL (0.72-1.25); EST GLOMERULAR FILTRATION RATE > 60 ML/MIN (60-); GLUCOSE 92 mg/dL (74-118); POTASSIUM 4.3 mmol/L (3.5-5.1); SODIUM 142 mmol/L (136-145)
[2017-06-01 07:30] VITALS: BP_SYST 105; BP_SYST 106; BP_DIAS 79; BP_DIAS 82
[2017-06-01] MEDS: FAMOTIDINE 20 MG TAB PO SCH ×2 (07:30→17:27)
[2017-06-01] MEDS: METOPROLOL TARTRATE 25 MG TAB PO SCH (07:58)
[2017-06-01] MEDS: LISINOPRIL 10 MG TAB PO SCH (07:58)
[2017-06-01] MEDS: FUROSEMIDE INJ 10 MG/ML 4 ML VIAL IV SCH ×2 (08:03→22:06)
[2017-06-01] MEDS: AMIODARONE HCL 200 MG TAB PO SCH ×2 (08:34→17:27)
[2017-06-01] MEDS: ASPIRIN 325 MG TAB EC PO SCH (08:34)
[2017-06-01] MEDS: DIGOXIN 0.125 MG TAB PO SCH (08:35)
[2017-06-01] MEDS ORDERED: LIDOCAINE HCL 2% LOCAL 20 ML VIAL ONE ×2 (13:38→13:59)
[2017-06-01] MEDS ORDERED: HEPARIN SOD (PORCINE) 1000 UNIT/ML 30ML ONE (13:39)
[2017-06-01] MEDS ORDERED: SODIUM CHLORIDE 0.9% 1000ML 1,000 ML ONE (13:39)
[2017-06-01] MEDS ORDERED: HEPARIN SOD/SOD CHLORIDE 2,000 ML ONE (13:40)
[2017-06-01] MEDS ORDERED: IOPAMIDOL 300MG/ML 100 ML INFUS..BTL IV ONE (13:40)
[2017-06-01] MEDS ORDERED: MIDAZOLAM HCL 2 MG/2 ML VIAL ONE (13:51)
[2017-06-01] MEDS ORDERED: FENTANYL CITRATE/PF 100MCG/2 ML INJ ONE (13:51)
[2017-06-01] MEDS ORDERED: IOPAMIDOL 300MG/ML 50ML INFUS..BTL IV ONE (13:56)
[2017-06-01 14:15] VITALS: BP 118/83
[2017-06-01 17:27] VITALS: BP 104/75
[2017-06-01] MEDS: AZITHROMYCIN 500MG/NS 250 ML 250 ML IV SCH (17:27)
[2017-06-01 20:55] VITALS: BP 122/94
[2017-06-02 00:20] VITALS: BP 99/89
[2017-06-02] MEDS: GUAIFENESIN 600MG/DEXTROMETHORPHAN 30MG TABSR PO SCH ×4 (00:25→18:00)
[2017-06-02] MEDS: ALBUTEROL/IPRATROPIUM 3 ML NEB NEB SCH ×3 (02:05→13:45)
[2017-06-02 04:00] VITALS: BP 99/89
[2017-06-02 06:09] LABS: BASOPHILS # (AUTO) 0.1 (0.0-0.1); BASOPHILS % 0.5 % (0.0-1.0); EOSINOPHILS # (AUTO) 0.5 (0.0-0.4); EOSINOPHILS % 4.8 % (0.0-6.0); HEMATOCRIT 45.9 % (38.2-49.6); HEMOGLOBIN 15.3 g/dL (14.0-18.0); LYMPHOCYTES # (AUTO) 1.9 (1.0-3.2); MEAN CORPUSCULAR HEMOGLOBIN 31.2 pg (28-32); MEAN CORPUSCULAR HGB CONC 33.3 g/dL (31-35); MEAN CORPUSCULAR VOLUME 93.5 fL (81-99); MONOCYTES # (AUTO) 0.8 (0.2-0.8); MONOCYTES % 7.5 % (4.4-11.3); NEUTROPHILS # (AUTO) 6.8 (2.1-6.9); NEUTROPHILS % 67.7 % (38.7-80.0); PLATELET COUNT 300 x10e3/uL (140-360); RED BLOOD COUNT 4.91 x10e6/uL (4.3-5.7); RED CELL DISTRIBUTION WIDTH 12.2 % (11.7-14.4)
[2017-06-02 06:33] LABS: ANION GAP 15.9 mmol/L (8-16); BLOOD UREA NITROGEN 25 mg/dL (7-26); BUN/CREATININE RATIO 26 (6-25); CALCIUM 9.8 mg/dL (8.4-10.2); CARBON DIOXIDE 31 mmol/L (22-29); CHLORIDE 100 mmol/L (98-107); CREATININE, SERUM 0.98 mg/dL (0.72-1.25); EST GLOMERULAR FILTRATION RATE > 60 ML/MIN (60-); GLUCOSE 96 mg/dL (74-118); POTASSIUM 4.9 mmol/L (3.5-5.1); SODIUM 142 mmol/L (136-145)
[2017-06-02] MEDS: CEFTRIAXONE SOD 1 GM VIAL IV SCH ×2 (07:03→17:30)
[2017-06-02] MEDS: FAMOTIDINE 20 MG TAB PO SCH ×2 (07:30→16:59)
[2017-06-02 08:00] VITALS: BP 91/67
[2017-06-02] MEDS: DIGOXIN 0.125 MG TAB PO SCH (09:00)
[2017-06-02] MEDS: METOPROLOL TARTRATE 25 MG TAB PO SCH (09:00)
[2017-06-02] MEDS: AMIODARONE HCL 200 MG TAB PO SCH ×2 (09:00→17:00)
[2017-06-02] MEDS: LISINOPRIL 10 MG TAB PO SCH (09:00)
[2017-06-02] MEDS: APIXABAN 5 MG TABLET PO SCH ×2 (09:00→17:00)
[2017-06-02] MEDS: FUROSEMIDE INJ 10 MG/ML 4 ML VIAL IV SCH (09:00)
[2017-06-02] MEDS: ASPIRIN 325 MG TAB EC PO SCH (09:00)
[2017-06-02] MEDS ORDERED: MUCINEX DM ER1 EACH PO (10:15)
[2017-06-02] MEDS ORDERED: DIGOXIN125 MCG PO (10:15)
[2017-06-02] MEDS ORDERED: Apixaban PO (10:15)
[2017-06-02] MEDS ORDERED: AMIODARONE HCL200 MG PO (10:15)
[2017-06-02] MEDS ORDERED: ASPIRIN ENTERI325 MG PO (10:15)
[2017-06-02] MEDS ORDERED: FUROSEMIDE40 MG PO (10:15)
[2017-06-02] MEDS ORDERED: CEFTIN PO (10:15)
[2017-06-02] MEDS ORDERED: LISINOPRIL10 MG PO (10:15)
[2017-06-02] MEDS ORDERED: LOPRESSOR25 MG PO (10:15)
[2017-06-02] MEDS ORDERED: LORAZEPAM0.5 MG PO (10:23)
--- NOTE | 2017-06-02 10:49 | Diagnostic Imaging Report ---
EXAMINATION: CHEST SINGLE (PORTABLE) INDICATION: \S\f/u \[id number] \S\1015 COMPARISON: 22/08/2017 FINDINGS: AP view TUBES and LINES: None. LUNGS: Limited by body habitus and low lung volumes. Central vascular congestion and mild interstitial edema. PLEURA: No pleural effusion or pneumothorax. HEART AND MEDIASTINUM: Enlarged cardiac silhouette. BONES AND SOFT TISSUES: No acute osseous lesion. Soft tissues are unremarkable. UPPER ABDOMEN: No free air under the diaphragm. IMPRESSION: Limited as above. Enlarged cardiac silhouette, central vascular congestion, and mild interstitial edema, improved from prior exam. No definite focal consolidation. Signed by: Dr. Souleymane Garcia MD on 06/02/2017 10:45 AM
[2017-06-02 12:00] VITALS: BP 86/58
[2017-06-02] MEDS: ACETAMINOPHEN 325 MG TAB PO PRN (16:59)
[2017-06-02 17:00] VITALS: BP 88/57
[2017-06-02] MEDS ORDERED: SODIUM CHLORIDE 0.9% 250ML 250 ML ONE (17:40)
[2017-06-02] MEDS: AZITHROMYCIN 500MG/NS 250 ML 250 ML IV SCH (18:00)
--- NOTE | 2017-06-04 17:08 | Discharge Summary ---
ADMISSION DIAGNOSES 1. New-onset atrial fibrillation, rapid ventricular response. 2. Acute pulmonary embolism. 3. New-onset systolic congestive heart failure. 4. Partially treated pneumonia. 5. Elevated liver enzymes. DISCHARGE DIAGNOSES 1. New-onset atrial fibrillation, rapid ventricular response. 2. Acute pulmonary embolism. 3. New-onset systolic congestive heart failure. 4. Partially treated pneumonia. 5. Elevated liver enzymes. HISTORY: Patient has no medical history, no chronic medications, and only surgery was gastric bypass. HOSPITAL COURSE: A 52-year-old male presents with feeling poorly with upper respiratory symptoms about 3 weeks ago. A few days ago, he was seen by a doctor and started on antibiotics for pneumonia. Over the last 4 days, he just progressively had worsening symptoms with shortness of breath dyspnea on exertion, orthopnea and some palpitations. On admission, patient was found to be in AFib with RVR. Patient was on a Cardizem drip, and Cardiology consult. They switched him over to amiodarone p.o. and had an echo ordered, which showed dilated chambers and an EF of 25% to 30%. Cardiology also started him on lisinopril 10 mg daily. Patient had a CT of the chest that showed pulmonary embolism within a few segmental and subsegmental branches, enlarged pulmonary artery suggestive of pulmonary hypertension, biatrial and left ventricular enlargement with diffuse pulmonary edema and bilateral effusion. Chest x-ray showed cardiomegaly with pulmonary vascular congestion. For the PE, the patient was started on Lovenox 1 mg/kg q.12 and was switched over to Eliquis at time of discharge. The patient was also started on Lasix q.12 per Cardiology for the CHF, and for pneumonia patient was started on Zithromax, Rocephin and nebs. Patient's liver enzymes: AST was 405 on admission, ALT 259, bilirubin 1.4, alk phos 109. Over the course of the hospital stay, patient's liver enzymes trended down; so, likely due to congestion. Per Cardiology, patient was scheduled for a stress test on May 29 but was not stable enough; so, he instead went for a heart cath on June 01, and per Cardiology the patient needed a LifeVest; but after speaking with patient's insurance, they said that he would be able to get a LifeVest but he would need 7 business days. So, per Cardiology patient was sent home on amiodarone, aspirin, digoxin, Lasix, lisinopril, metoprolol, Eliquis, plus Ceftin for 3 days for the remainder of the pneumonia antibiotics and Mucinex. Patient will follow up with Cardiology in 1 week, who will continue to work on getting him the LifeVest. He is stable and has been stable for many days waiting for the heart cath, which initially had to be cancelled due to a cardiology emergency. On date of discharge, WBC 10.1, hemoglobin 15.3, hematocrit 45.9, platelet 300. Sodium 142, potassium 4.9, creatinine 0.98, BUN 25, GFR of over 60. Patient feeling much better, no longer having shortness of breath or dyspnea. Does not qualify for oxygen at home. He will discharge home with family and follow up with Cardiology for LifeVest and PCP in 1 to 2 weeks. Dictated by: Meghana Talbot NP CHANTE AVALOS MD Job#: [id number] EV
== END 2017-06-02 20:53 | disposition home or self-care (01) | DRG 286 ==
LOC: ER 13:36 → ERHOLD 19:13 → ICU 05-26 16:04 → IMCU 05-28 13:20
PROVIDERS: ADMIT Internal Medicine; ATTEND Internal Medicine
PROC: 4A023N7 Measurement of Cardiac Sampling and Pressure, Left Heart, Percutaneous Approach (ICD-10-PCS; principal; 2017-06-01)
PROC: B2111ZZ Fluoroscopy of Multiple Coronary Arteries using Low Osmolar Contrast (ICD-10-PCS; 2017-06-01)
PROC: B2151ZZ Fluoroscopy of Left Heart using Low Osmolar Contrast (ICD-10-PCS; 2017-06-01)
DX: I48.0 Paroxysmal atrial fibrillation (principal); I26.99 Other pulmonary embolism without acute cor pulmonale; I50.21 Acute systolic (congestive) heart failure; J18.9 Pneumonia, unspecified organism; Z68.41 Body mass index [BMI] 40.0-44.9, adult; K76.1 Chronic passive congestion of liver; I08.1 Rheumatic disorders of both mitral and tricuspid valves; E66.9 Obesity, unspecified; Z68.36 Body mass index [BMI] 36.0-36.9, adult; Z98.84 Bariatric surgery status; E87.6 Hypokalemia; D64.9 Anemia, unspecified; Z79.82 Long term (current) use of aspirin; Z79.01 Long term (current) use of anticoagulants
CPT/HCPCS: 36140; 36415; 36600; 71045; 71260; 76700; 77002; 78451; 80048; 80053; 80061; 80076; 82550; 82553; 82805; 82948; 83735; 83880; 84100; 84436; 84443; 84479; 84484; 84550; 85007; 85025; 85027; 85379; 93005; 93306; 94640; 96365; 99284; A9502; J0456; J0696; J1160; J1644; J1650; J1940; J2001; J2060; J2250; J7030; J7050; Q9967

== ENCOUNTER → 2017-07-27 | Day surgery (SDC) | payer BC ==
[2017-07-25 14:12] LABS: BASOPHILS # (AUTO) 0.1 (0.0-0.1); BASOPHILS % 0.6 % (0.0-1.0); EOSINOPHILS # (AUTO) 0.2 (0.0-0.4); EOSINOPHILS % 2.2 % (0.0-6.0); HEMATOCRIT 32.3 % (38.2-49.6); LYMPHOCYTES # (AUTO) 2.1 (1.0-3.2); MEAN CORPUSCULAR HEMOGLOBIN 26.2 pg (28-32); MEAN CORPUSCULAR VOLUME 84.6 fL (81-99); MONOCYTES # (AUTO) 0.6 (0.2-0.8); PLATELET COUNT 301 x10e3/uL (140-360); RED BLOOD COUNT 3.82 x10e6/uL (4.3-5.7); RED CELL DISTRIBUTION WIDTH 14.6 % (11.7-14.4)
[~2017-07-27] MED LIST: AMIODARONE HCL200 MG PO; ASPIRIN ENTERI325 MG PO; Apixaban PO; CEFTIN PO; DIGOXIN125 MCG PO; FENTANYL CITRATE/PF 100MCG/2 ML INJ ONE; FUROSEMIDE40 MG PO; GLUCAGON FOR INJ 1 MG VIAL ONE; LISINOPRIL10 MG PO; LOPRESSOR25 MG PO; LORAZEPAM0.5 MG PO; MIDAZOLAM HCL 2 MG/2 ML VIAL ONE; MUCINEX DM ER1 EACH PO; PROPOFOL IV EMULSION 10 MG/ML 50 ML VIAL ONE
--- OUTSIDE RECORDS SUMMARY | 2017-07-27 06:16 | XMS REPORT | Continuity of Care Document ---
Author Author [facility] Organization [facility] Address [address] [place] [address] Phone Unavailable Care Team Providers Care President Of The [place] Name Role Phone ROSALVA GUERRERO DO PCP Insurance Providers Guarantor Arthur García Address [address] [place] [address] Email [email or web address] Payer Blue [employer] Exchange Policy Number [id number] Subscriber's Name Aide García Relationship 01 Group Number [id number] Effective Date 17 Advance Directives Directive Response Recorded Date/Time Does the patient have an advance directive? No 05/26/17 5:31pm If yes, is advance directive on file with [facility]? No 05/26/17 5:31pm If not on file with [facility] will patient provide a copy? No 05/26/17 5:31pm Do you have a Directive to Physician? No 05/25/17 4:45pm Do you have a Medical Power of Store Worker? No 05/25/17 4:45pm Do you have an out of hospital Do Not Resuscitate Order? No 05/25/17 4:45pm Do you have any special needs we should be aware of? No 05/25/17 4:45pm Do you have a support person here with you today? Yes 05/25/17 4:45pm Did patient receive Notice of Privacy Practices? Yes 05/25/17 4:45pm Did patient receive patient rights and responsibilities? Yes 05/25/17 4:45pm Problems No problem information available. Medications Current Home Medications Medication Dose Units Route Directions Days Qty Instructions Start Date Amiodarone Hcl 200 Mg Tablet 200 Mg Oral Twice A Day 30 Days Apixaban 5 Tablet 5 Mg Oral Twice A Day 30 Days 06/02/17 Aspirin (Aspirin Enteric Coated) 325 Mg Tabec 325 Mg Oral Every Morning 30 Days 06/02/17 Ceftin 500 Mg Oral Twice A Day 3 Days 06/02/17 Digoxin 125 Mcg Tablet 0.125 Mg Oral Every Morning 30 Days 06/02/17 Furosemide 40 Mg Tablet 40 Mg Oral Twice A Day 30 Days 06/02/17 Guaifenesin/Dextromethorphan (Mucinex Dm Er 600-30 Mg Tablet) 1 Each Tab.er.12h 1 Each Oral Every 6 Hours as needed for Nasal Congestion 7 Days 06/02/17 Lisinopril 10 Mg Tablet 10 Mg Oral Daily 30 Days 06/02/17 Lorazepam 0.5 Mg Tablet 0.5 Mg Oral Daily as needed for Anxiety 14 Tab 06/02/17 Metoprolol Tartrate (Lopressor) 25 Mg Tab 12.5 Mg Oral Daily 30 Days 06/02/17 Social History Social History Problem Response Recorded Date/Time Onset Date Status Hx Psychiatric Problems No 05/26/2017 5:31pm Not Applicable Not Applicable Smoking Status Start Date Stop Date Current every day smoker Hospital Discharge Instructions No hospital discharge instruction information available. Plan of Care Discharge Date 06/02/17 8:53pm Disposition HOME, SELF-CARE Instructions/Education Provided Atrial Fibrillation Congestive Heart Failure Prescriptions See Medication Section Referrals SAJAN AGUILERA MD (Cardiology) Order Date: 1-2 Weeks Entered Date: 06/02/2017 10:18am Address: [address] [place] [id number] Additional Instructions/Education F/U WITH PCP IN 1-2 WEEKS Functional Status Query Response Date Recorded Assistive Devices None May 26, 2017 5:33pm Ambulation Ability Independent May 26, 2017 5:33pm Toileting Ability Independent May 26, 2017 5:33pm Allergies, Adverse Reactions, Alerts No known allergies. Immunizations No immunization information available. Vital Signs Acute Vital Signs Vital Response Date/Time Temperature (Fahrenheit) 97.8 degrees F (97.6 - 99.5) 06/02/2017 5:00pm Pulse Pulse Rate (adult) 104 bpm (60 - 90) 06/02/2017 1:50pm Respiratory Rate 16 bpm (12 - 24) 06/02/2017 5:00pm Blood Pressure 88/57 mm Hg 06/02/2017 5:00pm Height 5 ft 9 in 05/25/2017 1:56pm Weight 244.05 lb 05/31/2017 11:02am Body Mass Index 36.0 kg/m^2 05/31/2017 11:02am Results Laboratory Results Test Name Result Units Flags Reference Collection Date/Time Result Date/ Time Comments White Blood Count 10.11 x10e3/uL 4.8-10.8 06/02/2017 5:50am 06/02/2017 6:16am Red Blood Count 4.91 x10e6/uL 4.3-5.7 06/02/2017 5:50am 06/02/2017 6: 16am Hemoglobin 15.3 g/dL 14.0-18.0 06/02/2017 5:50am 06/02/2017 6:16am Hematocrit 45.9 % 38.2-49.6 06/02/2017 5:50am 06/02/2017 6:16am Mean Corpuscular Volume 93.5 fL 81-99 06/02/2017 5:50am 06/02/2017 6: 16am Mean Corpuscular Hemoglobin 31.2 pg 28-32 06/02/2017 5:50am 06/02/2017 6:16am Mean Corpuscular Hemoglobin Concent 33.3 g/dL 31-35 06/02/2017 5:50am 06/02/2017 6:16am Red Cell Distribution Width 12.2 % 11.7-14.4 06/02/2017 5:50am 2017 6:16am Platelet Count 300 x10e3/uL 140-360 06/02/2017 5:50am 06/02/2017 6: 16am Neutrophils (%) (Auto) 67.7 % 38.7-80.0 06/02/2017 5:50am 06/02/2017 6: 16am Lymphocytes (%) (Auto) 19.0 % 18.0-39.1 06/02/2017 5:50am 06/02/2017 6: 16am Monocytes (%) (Auto) 7.5 % 4.4-11.3 06/02/2017 5:50am 06/02/2017 6: 16am Eosinophils (%) (Auto) 4.8 % 0.0-6.0 06/02/2017 5:50am 06/02/2017 6: 16am Basophils (%) (Auto) 0.5 % 0.0-1.0 06/02/2017 5:50am 06/02/2017 6:16am IM GRANULOCYTES % 0.5 % 0.0-1.0 06/02/2017 5:50am 06/02/2017 6:16am Neutrophils # (Auto) 6.8 2.1-6.9 06/02/2017 5:50am 06/02/2017 6:16am Lymphocytes # (Auto) 1.9 1.0-3.2 06/02/2017 5:50am 06/02/2017 6:16am Monocytes # (Auto) 0.8 0.2-0.8 06/02/2017 5:50am 06/02/2017 6:16am Eosinophils # (Auto) 0.5 H 0.0-0.4 06/02/2017 5:50am 06/02/2017 6: 16am Basophils # (Auto) 0.1 0.0-0.1 06/02/2017 5:50am 06/02/2017 6:16am Absolute Immature Granulocyte (auto 0.05 x10e3/uL 0-0.1 06/02/2017 5: 50am 06/02/2017 6:16am Differential Total Cells Counted 100 05/25/2017 2:20pm 05/25/2017 4 :43pm Neutrophils % (Manual) 67 % 40-74 05/25/2017 2:20pm 05/25/2017 4:43pm Lymphocytes % (Manual) 19 % 19-48 05/25/2017 2:20pm 05/25/2017 4:43pm Monocytes % (Manual) 10 % H 3.4-9.0 05/25/2017 2:20pm 05/25/2017 4:43pm Eosinophils % (Manual) 4 % 0-7 05/25/2017 2:20pm 05/25/2017 4:43pm Platelet Estimate ADEQUATE 05/25/2017 2:20pm 05/25/2017 4:43pm Polychromasia FEW 05/25/2017 2:20pm 05/25/2017 4:43pm Red Cell Morphology Comment NORMAL 05/25/2017 2:20pm 05/25/2017 4: 43pm D-Dimer Quantitative (PE/DVT) 2.25 ug/mLFEU H 0.00-0.45 05/25/2017 3: 24pm 05/25/2017 3:47pm Sodium Level 142 mmol/L 136-145 06/02/2017 5:50am 06/02/2017 6:36am Potassium Level 4.9 mmol/L 3.5-5.1 06/02/2017 5:50am 06/02/2017 6:36am Chloride Level 100 mmol/L 98-107 06/02/2017 5:50am 06/02/2017 6:36am Carbon Dioxide Level 31 mmol/L H 22-29 06/02/2017 5:50am 06/02/2017 6: 36am Anion Gap 15.9 mmol/L 8-16 06/02/2017 5:50am 06/02/2017 6:36am Blood Urea Nitrogen 25 mg/dL 7-26 06/02/2017 5:50am 06/02/2017 6:36am Creatinine 0.98 mg/dL 0.72-1.25 06/02/2017 5:50am 06/02/2017 6:36am BUN/Creatinine Ratio 26 H 6-25 06/02/2017 5:50am 06/02/2017 6:36am Estimat Glomerular Filtration Rate > 60 ML/MIN 60- 06/02/2017 5:50am 6:36am Ranges were taken from the National Kidney Disease Education Program and the National Kidney Foundation literature. Reference ranges: 60 or greater: Normal 16-59 (for 3 consecutive months): Chronic kidney disease 15 or less: Kidney failure Glucose Level 96 mg/dL 74-118 06/02/2017 5:50am 06/02/2017 6:36am Calcium Level 9.8 mg/dL 8.4-10.2 06/02/2017 5:50am 06/02/2017 6:36am Bedside Glucose 160 mg/dL H 70-120 05/31/2017 7:59am 05/31/2017 8:06am Meter ID: [id number] Uric Acid 6.6 mg/dL 4.8-8.0 05/26/2017 5:30am 05/26/2017 4:28pm Phosphorus Level 3.5 MG/DL 2.3-4.7 05/26/2017 5:30am 05/26/2017 4:28pm Magnesium Level 1.8 MG/DL 1.3-2.1 05/30/2017 5:50am 05/30/2017 6:46am Total Bilirubin 1.5 mg/dL H 0.2-1.2 05/30/2017 5:50am 05/30/2017 6:46am Direct Bilirubin 0.8 mg/dL H 0.0-0.5 05/30/2017 5:50am 05/30/2017 7: 15am Aspartate Amino Transf (AST/SGOT) 106 IU/L H 5-34 05/30/2017 5:50am 09/2017 6:46am Alanine Aminotransferase (ALT/SGPT) 207 IU/L H 0-55 05/30/2017 5:50am 6:46am Total Protein 6.3 g/dL L 6.5-8.1 05/30/2017 5:50am 05/30/2017 6:46am Albumin 2.7 g/dL L 3.5-5.0 05/30/2017 5:50am 05/30/2017 6:46am Globulin 3.5 g/dL 2.3-3.5 05/26/2017 5:30am 05/26/2017 6:11am Albumin/Globulin Ratio 0.9 0.8-2.0 05/26/2017 5:30am 05/26/2017 6: 11am Alkaline Phosphatase 123 IU/L 40-150 05/30/2017 5:50am 05/30/2017 6: 46am Triglycerides Level 48 MG/DL 0-149 05/26/2017 5:30am 05/26/2017 4:28pm Cholesterol Level 96 MD/DL 0-199 05/26/2017 5:30am 05/26/2017 4:28pm Less than 200 mg/dL Low Risk 201 - 239 mg/dL Borderline Risk 240 mg/dl and greater High Risk LDL Cholesterol 59 MG/DL L 60-130 05/26/2017 5:30am 05/26/2017 4:28pm HDL Cholesterol 27 MG/DL L 40-60 05/26/2017 5:30am 05/26/2017 4:28pm Cholesterol/HDL Ratio 3.6 L 3.9-4.7 05/26/2017 5:30am 05/26/2017 4: 28pm B-Type Natriuretic Peptide 895.8 pg/mL H 0-100 05/30/2017 5:50am 2017 7:17am Creatine Kinase 37 IU/L 30-200 05/26/2017 11:50am 05/26/2017 12:50pm Creatine Kinase MB 0.40 ng/mL 0-5.0 05/26/2017 11:50am 05/26/2017 1: 03pm Troponin I 0.005 ng/mL 0-0.300 05/26/2017 11:50am 05/26/2017 1:03pm Free Thyroxine Index 2.3820 1.4-3.8 05/26/2017 5:30am 05/26/2017 4: 45pm Thyroxine (T4) 6.71 ug/dL 4.5-10.9 05/26/2017 5:30am 05/26/2017 4:45pm Triiodothyronine (T3) Uptake 35.50 % 22.5-37.0 05/26/2017 5:30am 2017 4:45pm Thyroid Stimulating Hormone (TSH) 1.707 uIU/mL 0.350-4.940 05/26/2017 5: 30am 05/26/2017 4:45pm Arterial Blood pH 7.53 H 7.31-7.41 05/28/2017 7:05pm 05/28/2017 7: 20pm Arterial Blood Partial Pressure CO2 31 mmHg L 41-51 05/28/2017 7:05pm 7:20pm Arterial Blood Partial Pressure O2 270 mmHg H 80-105 05/28/2017 7:05pm 05/28/2017 7:20pm Arterial Blood HCO3 27 mmol/L 23-28 05/28/2017 7:05pm 05/28/2017 7: 20pm Arterial Blood Base Excess 4.0 mmol/L H -2 - 3 05/28/2017 7:05pm 2017 7:20pm Arterial Blood Oxygen Saturation 100.0 % H 95-98 05/28/2017 7:05pm 05/28 7:20pm NRM 100%, HAND DELIVERED TO DR. STRONG Hepatitis A IgM Antibody Negative 05/27/2017 7:20am 05/29/2017 9: 49am Hepatitis B Surface Antigen Negative 05/27/2017 7:20am 05/29/2017 9 :49am Hepatitis B Core IgM Antibody Negative 05/27/2017 7:20am 2017 9:49am Hepatitis C Antibody 0.2 05/27/2017 7:20am 05/29/2017 9:49am Reference Range: 0.0 - 0.9 s/co ratio Negative: < 0.8 Indeterminate: 0.8 - 0.9 Positive: > 0.9 The CDC recommends that a positive HCV antibody result be followed up with a HCV Nucleic Acid Amplification test (002150). [facility] [address] [address] Dir: Octavio Mckenzie MD For inquiries, the physician may contact Branch: [phone] Lab: [phone] Procedures Procedure Status Date Provider(s) Computed tomography of chest with contrast Active 05/25/17 EUGENIA JONES MD US abdomen complete Active 05/29/17 CHANTE AVALOS MD Encounters Encounter Location Arrival/Admit Date Discharge/Depart Date Attending Provider Discharged Inpatient [facility] 05/25/17 7:13pm 06/02/17 8:53pm CHANTE AVALOS MD
--- NOTE | 2017-07-27 10:07 | Operative Report ---
DATE OF PROCEDURE: July 27, 2017 REFERRING PHYSICIAN: Dr. Rosalva Guerrero PROCEDURES PERFORMED 1. Esophagogastroduodenoscopy with biopsies. 2. Colonoscopy. INDICATIONS FOR EGD: Anemia and melena. INDICATIONS FOR COLONOSCOPY: Colorectal cancer screening and history of anemia. MEDICATION: Patient was done under MAC. Please see anesthesiologist's note. PROCEDURE: With the patient in the left lateral decubitus position, the flexible fiberoptic Olympus gastroscope was introduced into the esophagus under direct visualization without any difficulty. The esophagus appeared to be within normal limits. The scope was then advanced with ease into the stomach and the patient appears to be status post Luna-en-Y. Anastomosis appeared intact. There was some granularity and nodularity noted at the anastomosis and the efferent loop. Biopsies were obtained. An approximately 8-mm ulcer was noted right at the anastomosis. There was no active bleeding or stigmata of recent hemorrhage. There was some hyperplastic appearing polyps in the gastric cuff, and some were partially excised with the cold biopsy forceps. The scope was then retroflexed and the lower esophageal sphincter appeared somewhat incompetent. The fundus appeared to be within normal limits. The scope was then straightened out. It was subsequently withdrawn. Patient tolerated the procedure well. IMPRESSION 1. Normal esophagus. 2. Status post Luna-en-Y. Anastomosis somewhat nodular and friable. Biopsies were obtained. 3. Hyperplastic appearing minute polyps, gastric cuff and some partially excised with the cold biopsy forceps. 4. Approximately 8 mm marginal ulcer without active bleeding or stigmata of recent hemorrhage. PLAN: Follow up histology. Increase omeprazole to 40 mg 1 p.o. a.c. b.i.d. Add Carafate 1 g p.o. a.c. t.i.d. and at bedtime. The patient was then turned around. After adequate lubrication of the anal canal, a flexible fiberoptic Olympus colonoscope was inserted into the rectum with ease advanced all the way to the cecum. There was a moderate to large amount of retained fecal material in the colon. The scope was then withdrawn slowly, and whatever was visualized the mucosa overlying the cecum, ascending, transverse, descending, sigmoid, and rectum grossly appeared to be within normal limits. There was no obvious obstructing or constricting lesions. The scope was then retroflexed into the distal rectum and small internal hemorrhoids were noted, none of which was actively bleeding. The scope was then straightened out. It was subsequently withdrawn. Patient tolerated the procedure well. IMPRESSION 1. Poor prep. 2. Internal hemorrhoids, none actively bleeding. PLAN: Initiate high-fiber and low-fat diet. Initiate high-fiber supplement. Needs a small bowel series. If negative, possible repeat of colonoscopy after a better prep. Job#: [id number] ROCHELLE cc:ROSALVA GUERRERO DO
== END | disposition home or self-care (01) ==
LOC: OR 06:15
PROVIDERS: ATTEND Internal Medicine Gastroenterology
DX: Z12.11 Encounter for screening for malignant neoplasm of colon (principal); K31.7 Polyp of stomach and duodenum; K29.50 Unspecified chronic gastritis without bleeding; K31.89 Other diseases of stomach and duodenum; K25.9 Gastric ulcer, unspecified as acute or chronic, without hemorrhage or perforation; K59.00 Constipation, unspecified; Z98.84 Bariatric surgery status; K64.8 Other hemorrhoids; D64.9 Anemia, unspecified; I25.10 Atherosclerotic heart disease of native coronary artery without angina pectoris; I50.9 Heart failure, unspecified; I48.91 Unspecified atrial fibrillation; Z79.02 Long term (current) use of antithrombotics/antiplatelets; Z68.37 Body mass index [BMI] 37.0-37.9, adult; Z87.01 Personal history of pneumonia (recurrent); Z86.711 Personal history of pulmonary embolism; Z87.891 Personal history of nicotine dependence
CPT/HCPCS: 36415; 43239; 45378; 85025; J1610; J2250

== ENCOUNTER 2017-12-22 11:45 | Inpatient (IN) | payer BC ==
[~2017-12-22] VITALS: Ht 175.3 cm; Wt 119.3 kg
[2017-12-22] VITALS (31 sets, daily range): BP systolic 89–114; BP diastolic 37–91
[2017-12-22] MEDS: SODIUM CHLORIDE 0.9% 1000ML 1,000 ML IV SCH ×3 (08:00→23:55)
[~2017-12-22 11:45] MED LIST changes: -FENTANYL CITRATE/PF 100MCG/2 ML INJ ONE; -GLUCAGON FOR INJ 1 MG VIAL ONE; -MIDAZOLAM HCL 2 MG/2 ML VIAL ONE; -PROPOFOL IV EMULSION 10 MG/ML 50 ML VIAL ONE
[2017-12-22] MEDS ORDERED: SODIUM CHLORIDE 0.9% 1000ML 1,000 ML IV STA (12:14)
[2017-12-22] MEDS ORDERED: PANTOPRAZOLE 40 MG 10ML VIAL IV STA (12:14)
[2017-12-22 12:32] LABS: BASOPHILS % 0.3 % (0.0-1.0); EOSINOPHILS # (AUTO) 0.2 (0.0-0.4); EOSINOPHILS % 1.8 % (0.0-6.0); HEMATOCRIT 26.9 % (38.2-49.6); HEMOGLOBIN 8.9 g/dL (14.0-18.0); LYMPHOCYTES # (AUTO) 2.3 (1.0-3.2); LYMPHOCYTES % 25.5 % (18.0-39.1); MEAN CORPUSCULAR HEMOGLOBIN 30.6 pg (28-32); MEAN CORPUSCULAR HGB CONC 33.1 g/dL (31-35); MEAN CORPUSCULAR VOLUME 92.4 fL (81-99); MONOCYTES # (AUTO) 0.5 (0.2-0.8); MONOCYTES % 5.7 % (4.4-11.3); NEUTROPHILS # (AUTO) 5.8 (2.1-6.9); PLATELET COUNT 237 x10e3/uL (140-360); RED BLOOD COUNT 2.91 x10e6/uL (4.3-5.7); RED CELL DISTRIBUTION WIDTH 14.2 % (11.7-14.4)
[2017-12-22] MEDS: PANTOPRAZOL 40MG/SOD CHL 0.9% 50 ML IV SCH ×2 (12:36→21:30)
[2017-12-22 12:41] LABS: INR 1.05; PARTIAL THROMBOPLASTIN TIME 29.2 seconds (23.8-35.5); PROTHROMBIN TIME 14.6 seconds (11.9-14.5)
[2017-12-22 12:50] LABS: ALANINE AMINOTRANSFERASE 10 IU/L (0-55); ALBUMIN 3.4 g/dL (3.5-5.0); ALBUMIN/GLOBULIN RATIO 1.2 (0.8-2.0); ALKALINE PHOSPHATASE 66 IU/L (40-150); ANION GAP 12.9 mmol/L (8-16); BLOOD UREA NITROGEN 43 mg/dL (7-26); BUN/CREATININE RATIO 50 (6-25); CALCIUM 8.6 mg/dL (8.4-10.2); CARBON DIOXIDE 25 mmol/L (22-29); CHLORIDE 108 mmol/L (98-107); CREATINE KINASE 39 IU/L (30-200); CREATININE, SERUM 0.86 mg/dL (0.72-1.25); EST GLOMERULAR FILTRATION RATE > 60 ML/MIN (60-); GLUCOSE 161 mg/dL (74-118); POTASSIUM 3.9 mmol/L (3.5-5.1); SODIUM 142 mmol/L (136-145)
[2017-12-22] MEDS ORDERED: PANTOPRAZOLE INJ 80 MG in SODIUM CHLORIDE 0.9% 100 ML IV SCH (15:15)
[2017-12-22] MEDS ORDERED: PROPOFOL IV EMULSION 10 MG/ML 50 ML VIAL ONE (15:20)
[2017-12-22] MEDS ORDERED: HYDRALAZINE HCL 20 MG/ML VIAL IV PRN (18:15)
[2017-12-22] MEDS ORDERED: ACETAMINOPHEN 325 MG TAB PO PRN (18:15)
[2017-12-22 18:17] LABS: HEMATOCRIT 27.9 % (38.2-49.6); HEMOGLOBIN 9.1 g/dL (14.0-18.0)
[2017-12-22] MEDS ORDERED: SODIUM CHLORIDE 0.9% 250ML 250 ML ONE (21:45)
[2017-12-23] VITALS (50 sets, daily range): BP systolic 78–141; BP diastolic 48–88
[2017-12-23 00:36] LABS: HEMATOCRIT 22.4 % (38.2-49.6); HEMOGLOBIN 7.4 g/dL (14.0-18.0)
[2017-12-23] MEDS: PANTOPRAZOL 40MG/SOD CHL 0.9% 50 ML IV SCH ×5 (00:55→22:45)
[2017-12-23] MEDS ORDERED: SODIUM CHLORIDE 0.9% 250ML 250 ML IV ONE (01:15)
[2017-12-23] MEDS ORDERED: DIPHENHYDRAMINE HCL INJ 50 MG/ML VIAL ONE (07:06)
[2017-12-23 07:14] LABS: BASOPHILS % 0.5 % (0.0-1.0); EOSINOPHILS # (AUTO) 0.2 (0.0-0.4); EOSINOPHILS % 2.6 % (0.0-6.0); HEMATOCRIT 26.9 % (38.2-49.6); LYMPHOCYTES # (AUTO) 1.9 (1.0-3.2); LYMPHOCYTES % 30.4 % (18.0-39.1); MEAN CORPUSCULAR HEMOGLOBIN 30.4 pg (28-32); MEAN CORPUSCULAR HGB CONC 33.5 g/dL (31-35); MEAN CORPUSCULAR VOLUME 90.9 fL (81-99); MONOCYTES # (AUTO) 0.4 (0.2-0.8); NEUTROPHILS # (AUTO) 3.6 (2.1-6.9); PLATELET COUNT 154 x10e3/uL (140-360); RED BLOOD COUNT 2.96 x10e6/uL (4.3-5.7); RED CELL DISTRIBUTION WIDTH 14.3 % (11.7-14.4)
[2017-12-23] MEDS ORDERED: DIPHENHYDRAMINE HCL INJ 50 MG/ML VIAL IV ONE (07:15)
[2017-12-23 07:31] LABS: ANION GAP 11.2 mmol/L (8-16); BLOOD UREA NITROGEN 35 mg/dL (7-26); BUN/CREATININE RATIO 43 (6-25); CALCIUM 8.1 mg/dL (8.4-10.2); CARBON DIOXIDE 25 mmol/L (22-29); CHLORIDE 109 mmol/L (98-107); CREATININE, SERUM 0.82 mg/dL (0.72-1.25); EST GLOMERULAR FILTRATION RATE > 60 ML/MIN (60-); GLUCOSE 89 mg/dL (74-118); POTASSIUM 3.2 mmol/L (3.5-5.1); SODIUM 142 mmol/L (136-145)
[2017-12-23] MEDS ORDERED: SODIUM CHLORIDE 0.9% 500ML 500 ML ONE (07:38)
[2017-12-23 07:54] LABS: FREE T4 (FREE THYROXINE) 1.14 ng/dL (0.9-1.8); THYROID STIMULATING HORMONE 1.894 uIU/mL (0.350-4.940)
[2017-12-23] MEDS: SODIUM CHLORIDE 0.9% 1000ML 1,000 ML IV SCH ×3 (08:00→23:55)
[2017-12-23] MEDS ORDERED: SODIUM CHLORIDE 0.9% 1000ML 1,000 ML ONE (08:03)
--- NOTE | 2017-12-23 08:49 | Operative Report ---
DATE OF PROCEDURE: December 23, [address] Jeb Oliva. 2. Dr. Chai Tavares. PROCEDURE PERFORMED: Esophagogastroduodenoscopy with injection therapy and fulguration of an actively bleeding ulcer. INDICATIONS FOR ESOPHAGOGASTRODUODENOSCOPY: History of hematemesis, melena. MEDICATION: Patient was done under MAC. Please see anesthesiologist's note. PROCEDURE: With patient in lateral decubitus position, a flexible fiberoptic Olympus therapeutic gastroscope was introduced into the esophagus under direct visualization without any difficulty. There was some patchy erythema noted in distal esophagus. The scope was then advanced with ease into the stomach traversing a small sliding hiatal hernia. The patient apparently is status post Luna-en-Y and the anastomosis appeared intact. An approximately 5-mm ulcer was noted at the anastomosis and was actively bleeding. The ulcer was then injected with 1:10,000 epinephrine and fulgurated with size 10-Wallisian gold probe with excellent hemostasis. The scope was then retroflexed, and some postoperative changes were noted, but the fundus and the cardia appeared to be within normal limits. The scope was then straightened out and was subsequently withdrawn. Patient tolerated the procedure well. IMPRESSION 1. Distal esophagitis, mild. 2. Small sliding hiatal hernia. 3. Status post Luna-en-Y, anastomosis intact. 4. Approximately 5-mm marginal ulcer, actively bleeding, was noted. Excellent hemostasis obtained with injection therapy with 1:10,000 epinephrine and fulguration with size 10-Wallisian cold probe. 5. Patient tolerated the procedure well. PLAN: Follow H and H. Initiate clear liquid diet. Continue PPI therapy. Job#: [id number] MARIO ALBERTO cc:Dr. Jeb Tavares
[2017-12-23] MEDS: DIGOXIN 0.125 MG TAB PO SCH (09:00)
[2017-12-23] MEDS: AMIODARONE HCL 200 MG TAB PO SCH ×2 (09:00→17:00)
[2017-12-23] MEDS: FUROSEMIDE 40 MG TAB PO SCH ×2 (09:00→18:09)
[2017-12-23] MEDS ORDERED: POTASSIUM CHLORIDE 20 MEQ TAB CR PO STA (10:18)
[2017-12-23] MEDS ORDERED: ONDANSETRON HCL INJ 2 MG/ML VIAL IV PRN (10:45)
[2017-12-23] MEDS ORDERED: POTASSIUM CHLORIDE 20 MEQ TAB CR PO ONE (11:00)
[2017-12-23 11:54] LABS: HEMATOCRIT 25.8 % (38.2-49.6); HEMOGLOBIN 8.7 g/dL (14.0-18.0)
[2017-12-23] MEDS ORDERED: SIMETHICONE 80 MG CHEW PO PRN (12:45)
[2017-12-23] MEDS: OYST-CAL-D 500MG TABLET PO SCH (18:09)
[2017-12-23 18:36] LABS: HEMATOCRIT 25.3 % (38.2-49.6); HEMOGLOBIN 8.4 g/dL (14.0-18.0)
[2017-12-24] VITALS (30 sets, daily range): BP systolic 81–119; BP diastolic 35–77
[2017-12-24 00:20] LABS: HEMATOCRIT 26.1 % (38.2-49.6)
[2017-12-24] MEDS: PANTOPRAZOL 40MG/SOD CHL 0.9% 50 ML IV SCH ×5 (03:45→21:18)
[2017-12-24 04:42] LABS: BASOPHILS % 0.2 % (0.0-1.0); EOSINOPHILS # (AUTO) 0.2 (0.0-0.4); EOSINOPHILS % 3.4 % (0.0-6.0); HEMATOCRIT 24.9 % (38.2-49.6); HEMOGLOBIN 8.6 g/dL (14.0-18.0); LYMPHOCYTES % 34.8 % (18.0-39.1); MEAN CORPUSCULAR HEMOGLOBIN 31.4 pg (28-32); MEAN CORPUSCULAR HGB CONC 34.5 g/dL (31-35); MEAN CORPUSCULAR VOLUME 90.9 fL (81-99); MONOCYTES # (AUTO) 0.4 (0.2-0.8); NEUTROPHILS # (AUTO) 3.2 (2.1-6.9); NEUTROPHILS % 54.4 % (38.7-80.0); PLATELET COUNT 163 x10e3/uL (140-360); RED BLOOD COUNT 2.74 x10e6/uL (4.3-5.7); RED CELL DISTRIBUTION WIDTH 14.5 % (11.7-14.4)
[2017-12-24 05:02] LABS: ANION GAP 12.4 mmol/L (8-16); BLOOD UREA NITROGEN 21 mg/dL (7-26); BUN/CREATININE RATIO 26 (6-25); CALCIUM 8.1 mg/dL (8.4-10.2); CARBON DIOXIDE 24 mmol/L (22-29); CHLORIDE 109 mmol/L (98-107); CREATININE, SERUM 0.82 mg/dL (0.72-1.25); EST GLOMERULAR FILTRATION RATE > 60 ML/MIN (60-); GLUCOSE 92 mg/dL (74-118); MAGNESIUM 1.8 MG/DL (1.3-2.1); POTASSIUM 3.4 mmol/L (3.5-5.1); SODIUM 142 mmol/L (136-145)
[2017-12-24] MEDS: DIGOXIN 0.125 MG TAB PO SCH (08:18)
[2017-12-24] MEDS: AMIODARONE HCL 200 MG TAB PO SCH ×2 (08:18→16:20)
[2017-12-24] MEDS: OYST-CAL-D 500MG TABLET PO SCH ×2 (08:18→16:20)
[2017-12-24] MEDS: FUROSEMIDE 40 MG TAB PO SCH ×2 (08:18→16:20)
[2017-12-24] MEDS: SODIUM CHLORIDE 0.9% 1000ML 1,000 ML IV SCH (08:18)
[2017-12-24 12:16] LABS: HEMATOCRIT 28.9 % (38.2-49.6); HEMOGLOBIN 9.8 g/dL (14.0-18.0)
[2017-12-24 18:21] LABS: HEMATOCRIT 29.8 % (38.2-49.6)
[2017-12-25] VITALS (7 sets, daily range): BP systolic 103–117; BP diastolic 54–67
[2017-12-25] MEDS: PANTOPRAZOL 40MG/SOD CHL 0.9% 50 ML IV SCH ×4 (02:25→17:34)
[2017-12-25 04:36] LABS: BASOPHILS % 0.2 % (0.0-1.0); EOSINOPHILS # (AUTO) 0.2 (0.0-0.4); EOSINOPHILS % 3.9 % (0.0-6.0); HEMATOCRIT 24.9 % (38.2-49.6); HEMOGLOBIN 8.5 g/dL (14.0-18.0); LYMPHOCYTES # (AUTO) 1.9 (1.0-3.2); LYMPHOCYTES % 33.5 % (18.0-39.1); MEAN CORPUSCULAR HEMOGLOBIN 31.1 pg (28-32); MEAN CORPUSCULAR HGB CONC 34.1 g/dL (31-35); MEAN CORPUSCULAR VOLUME 91.2 fL (81-99); MONOCYTES # (AUTO) 0.4 (0.2-0.8); NEUTROPHILS # (AUTO) 3.1 (2.1-6.9); NEUTROPHILS % 54.5 % (38.7-80.0); PLATELET COUNT 168 x10e3/uL (140-360); RED BLOOD COUNT 2.73 x10e6/uL (4.3-5.7); RED CELL DISTRIBUTION WIDTH 14.6 % (11.7-14.4)
[2017-12-25 04:57] LABS: ANION GAP 12.4 mmol/L (8-16); BLOOD UREA NITROGEN 19 mg/dL (7-26); BUN/CREATININE RATIO 23 (6-25); CALCIUM 8.5 mg/dL (8.4-10.2); CARBON DIOXIDE 23 mmol/L (22-29); CHLORIDE 109 mmol/L (98-107); CREATININE, SERUM 0.82 mg/dL (0.72-1.25); EST GLOMERULAR FILTRATION RATE > 60 ML/MIN (60-); GLUCOSE 96 mg/dL (74-118); PHOSPHORUS 3.2 MG/DL (2.3-4.7); POTASSIUM 3.4 mmol/L (3.5-5.1); SODIUM 141 mmol/L (136-145)
[2017-12-25] MEDS: SODIUM CHLORIDE 0.9% 1000ML 1,000 ML IV SCH ×2 (07:45→11:01)
[2017-12-25] MEDS: AMIODARONE HCL 200 MG TAB PO SCH ×2 (09:07→16:41)
[2017-12-25] MEDS: FUROSEMIDE 40 MG TAB PO SCH ×2 (09:08→16:41)
[2017-12-25] MEDS: DIGOXIN 0.125 MG TAB PO SCH (09:08)
[2017-12-25] MEDS: OYST-CAL-D 500MG TABLET PO SCH ×2 (09:08→16:41)
[2017-12-25 11:58] LABS: HEMATOCRIT 27.6 % (38.2-49.6); HEMOGLOBIN 9.1 g/dL (14.0-18.0)
[2017-12-25] MEDS ORDERED: POTASSIUM CHLORIDE 20 MEQ TAB CR PO STA (15:21)
[2017-12-25] MEDS: POTASSIUM CHLORIDE 20 MEQ TAB CR PO SCH ×3 (16:34→21:37)
[2017-12-25 18:12] LABS: HEMATOCRIT 27.1 % (38.2-49.6); HEMOGLOBIN 9.1 g/dL (14.0-18.0)
[2017-12-26] VITALS (7 sets, daily range): BP systolic 93–119; BP diastolic 57–68
[2017-12-26] MEDS: SODIUM CHLORIDE 0.9% 1000ML 1,000 ML IV SCH (00:09)
[2017-12-26] MEDS: PANTOPRAZOL 40MG/SOD CHL 0.9% 50 ML IV SCH ×5 (00:09→23:50)
[2017-12-26] MEDS ORDERED: MAGNESIUM HYDROXIDE 30 ML UDC PO PRN (01:15)
[2017-12-26 05:03] LABS: BASOPHILS % 0.3 % (0.0-1.0); EOSINOPHILS # (AUTO) 0.2 (0.0-0.4); EOSINOPHILS % 3.9 % (0.0-6.0); HEMATOCRIT 26.6 % (38.2-49.6); HEMOGLOBIN 8.9 g/dL (14.0-18.0); LYMPHOCYTES # (AUTO) 1.8 (1.0-3.2); LYMPHOCYTES % 30.1 % (18.0-39.1); MEAN CORPUSCULAR HEMOGLOBIN 30.9 pg (28-32); MEAN CORPUSCULAR HGB CONC 33.5 g/dL (31-35); MEAN CORPUSCULAR VOLUME 92.4 fL (81-99); MONOCYTES # (AUTO) 0.4 (0.2-0.8); MONOCYTES % 7.1 % (4.4-11.3); NEUTROPHILS # (AUTO) 3.4 (2.1-6.9); NEUTROPHILS % 58.3 % (38.7-80.0); PLATELET COUNT 196 x10e3/uL (140-360); RED BLOOD COUNT 2.88 x10e6/uL (4.3-5.7); RED CELL DISTRIBUTION WIDTH 14.6 % (11.7-14.4)
[2017-12-26 05:31] LABS: ANION GAP 10.8 mmol/L (8-16); BLOOD UREA NITROGEN 13 mg/dL (7-26); BUN/CREATININE RATIO 15 (6-25); CALCIUM 8.7 mg/dL (8.4-10.2); CARBON DIOXIDE 25 mmol/L (22-29); CHLORIDE 110 mmol/L (98-107); CREATININE, SERUM 0.85 mg/dL (0.72-1.25); EST GLOMERULAR FILTRATION RATE > 60 ML/MIN (60-); GLUCOSE 95 mg/dL (74-118); MAGNESIUM 1.9 MG/DL (1.3-2.1); POTASSIUM 3.8 mmol/L (3.5-5.1); SODIUM 142 mmol/L (136-145)
--- NOTE | 2017-12-26 06:47 | Diagnostic Imaging Report ---
EXAMINATION: CHEST 2 VIEWS INDICATION: \S\PMH Chronic Systolic CHF, currently on IVF. No CXR on admit \S\. COMPARISON: 06/02/2017 FINDINGS: TUBES and LINES: None. LUNGS: Lungs are well inflated. Minimal left lung base atelectasis and scarring. There is no evidence of pneumonia or pulmonary edema. PLEURA: No pleural effusion or pneumothorax. HEART AND MEDIASTINUM: The cardiomediastinal silhouette is unremarkable. There are atherosclerotic calcifications within the aorta. BONES AND SOFT TISSUES: No acute osseous lesion. Soft tissues are unremarkable. UPPER ABDOMEN: No free air under the diaphragm. IMPRESSION: No acute thoracic abnormality. Signed by: Dr. Vinayak Larry M.D. on 12/26/2017 6:43 AM
[2017-12-26] MEDS ORDERED: POLYETHYLENE GLYCOL 3350 17 GM PACK PO PRN (07:45)
[2017-12-26] MEDS: FUROSEMIDE 40 MG TAB PO SCH ×2 (08:46→18:07)
[2017-12-26] MEDS: AMIODARONE HCL 200 MG TAB PO SCH ×2 (08:46→18:07)
[2017-12-26] MEDS: DIGOXIN 0.125 MG TAB PO SCH (08:46)
[2017-12-26] MEDS: OYST-CAL-D 500MG TABLET PO SCH ×2 (08:46→18:07)
[2017-12-26] MEDS ORDERED: BISACODYL 5 MG TAB EC PO ONE (15:30)
[2017-12-26] MEDS ORDERED: MAGNESIUM HYDROXIDE 30 ML UDC PO ONE (23:30)
[2017-12-27] VITALS (9 sets, daily range): BP systolic 93–119; BP diastolic 50–70
[2017-12-27] MEDS: PANTOPRAZOL 40MG/SOD CHL 0.9% 50 ML IV SCH ×2 (03:50→09:48)
[2017-12-27 04:43] LABS: BASOPHILS % 0.4 % (0.0-1.0); EOSINOPHILS # (AUTO) 0.2 (0.0-0.4); EOSINOPHILS % 2.9 % (0.0-6.0); HEMATOCRIT 30.6 % (38.2-49.6); HEMOGLOBIN 10.4 g/dL (14.0-18.0); LYMPHOCYTES # (AUTO) 2.4 (1.0-3.2); LYMPHOCYTES % 29.1 % (18.0-39.1); MEAN CORPUSCULAR HEMOGLOBIN 30.9 pg (28-32); MEAN CORPUSCULAR VOLUME 90.8 fL (81-99); MONOCYTES # (AUTO) 0.6 (0.2-0.8); MONOCYTES % 7.7 % (4.4-11.3); NEUTROPHILS # (AUTO) 4.9 (2.1-6.9); NEUTROPHILS % 59.7 % (38.7-80.0); PLATELET COUNT 224 x10e3/uL (140-360); RED BLOOD COUNT 3.37 x10e6/uL (4.3-5.7); RED CELL DISTRIBUTION WIDTH 14.6 % (11.7-14.4); RETICULOCYTE % 4.2 % (0.8-2.2)
[2017-12-27 05:04] LABS: ANION GAP 14.8 mmol/L (8-16); BLOOD UREA NITROGEN 22 mg/dL (7-26); BUN/CREATININE RATIO 19 (6-25); CALCIUM 9.7 mg/dL (8.4-10.2); CARBON DIOXIDE 29 mmol/L (22-29); CHLORIDE 102 mmol/L (98-107); CREATININE, SERUM 1.13 mg/dL (0.72-1.25); EST GLOMERULAR FILTRATION RATE > 60 ML/MIN (60-); GLUCOSE 100 mg/dL (74-118); MAGNESIUM 2.8 MG/DL (1.3-2.1); POTASSIUM 3.8 mmol/L (3.5-5.1); SODIUM 142 mmol/L (136-145)
[2017-12-27 05:58] LABS: FOLATE 14.3 ng/mL (7.0-15.4)
[2017-12-27 06:50] LABS: FERRITIN 43.51 ng/mL (21.81-274.66)
[2017-12-27] MEDS: AMIODARONE HCL 200 MG TAB PO SCH ×2 (09:48→18:09)
[2017-12-27] MEDS: DIGOXIN 0.125 MG TAB PO SCH (09:48)
[2017-12-27] MEDS: FUROSEMIDE 40 MG TAB PO SCH ×2 (09:48→18:09)
[2017-12-27] MEDS: OYST-CAL-D 500MG TABLET PO SCH ×2 (09:48→18:09)
[2017-12-27] MEDS ORDERED: ASCORBIC ACID500 MG PO (10:19)
[2017-12-27] MEDS ORDERED: DOCUSATE SODIU100 MG PO (10:19)
[2017-12-27] MEDS ORDERED: PANTOPRAZOLE SO40 MG PO (10:19)
[2017-12-27] MEDS ORDERED: Calcium Carbonate PO (10:19)
[2017-12-27] MEDS ORDERED: FERROUS SULFAT325 MG PO (10:19)
[2017-12-27] MEDS ORDERED: BISACODYL 5 MG TAB EC PO NR (10:45)
[2017-12-27] MEDS: METOPROLOL TARTRATE 25 MG TAB PO SCH ×2 (13:43→18:09)
[2017-12-27] MEDS: PANTOPRAZOLE INJ 40 MG in SODIUM CHLORIDE 0.9% 50ML 50 ML IV SCH ×2 (16:39→21:40)
[2017-12-27] MEDS: ASCORBIC ACID 500 MG TAB PO SCH (18:09)
[2017-12-27] MEDS: FERROUS SULFATE 325 MG TAB PO SCH (18:09)
[2017-12-28] VITALS: BP 114/69
[2017-12-28] MEDS: PANTOPRAZOLE INJ 40 MG in SODIUM CHLORIDE 0.9% 50ML 50 ML IV SCH ×2 (02:35→08:44)
[2017-12-28 04:39] LABS: BASOPHILS % 0.5 % (0.0-1.0); EOSINOPHILS # (AUTO) 0.3 (0.0-0.4); EOSINOPHILS % 3.5 % (0.0-6.0); HEMATOCRIT 29.9 % (38.2-49.6); HEMOGLOBIN 9.9 g/dL (14.0-18.0); LYMPHOCYTES # (AUTO) 2.4 (1.0-3.2); LYMPHOCYTES % 30.7 % (18.0-39.1); MEAN CORPUSCULAR HEMOGLOBIN 30.5 pg (28-32); MEAN CORPUSCULAR HGB CONC 33.1 g/dL (31-35); MONOCYTES # (AUTO) 0.7 (0.2-0.8); MONOCYTES % 8.6 % (4.4-11.3); NEUTROPHILS # (AUTO) 4.4 (2.1-6.9); NEUTROPHILS % 56.4 % (38.7-80.0); PLATELET COUNT 212 x10e3/uL (140-360); RED BLOOD COUNT 3.25 x10e6/uL (4.3-5.7); RED CELL DISTRIBUTION WIDTH 14.4 % (11.7-14.4)
[2017-12-28 05:00] VITALS: BP 110/59
[2017-12-28 05:07] LABS: ANION GAP 14.4 mmol/L (8-16); BLOOD UREA NITROGEN 22 mg/dL (7-26); BUN/CREATININE RATIO 22 (6-25); CARBON DIOXIDE 27 mmol/L (22-29); CHLORIDE 102 mmol/L (98-107); CREATININE, SERUM 0.99 mg/dL (0.72-1.25); EST GLOMERULAR FILTRATION RATE > 60 ML/MIN (60-); GLUCOSE 85 mg/dL (74-118); MAGNESIUM 2.4 MG/DL (1.3-2.1); POTASSIUM 3.4 mmol/L (3.5-5.1); SODIUM 140 mmol/L (136-145)
[2017-12-28 07:45] VITALS: BP 117/58
[2017-12-28 08:07] VITALS: BP 117/58
[2017-12-28] MEDS: AMIODARONE HCL 200 MG TAB PO SCH (08:45)
[2017-12-28] MEDS: FUROSEMIDE 40 MG TAB PO SCH (08:45)
[2017-12-28] MEDS: FERROUS SULFATE 325 MG TAB PO SCH (08:45)
[2017-12-28] MEDS: OYST-CAL-D 500MG TABLET PO SCH (08:45)
[2017-12-28] MEDS: ASCORBIC ACID 500 MG TAB PO SCH (08:45)
[2017-12-28] MEDS: DIGOXIN 0.125 MG TAB PO SCH (08:47)
[2017-12-28] MEDS: METOPROLOL TARTRATE 25 MG TAB PO SCH (08:47)
[2017-12-28] MEDS ORDERED: POTASSIUM CHLORIDE 20 MEQ TAB CR PO NR (10:00)
--- NOTE | 2017-12-28 10:24 | Consultation ---
DATE OF CONSULTATION: December 27, 2017 CARDIOLOGY CONSULTATION REASON FOR CONSULTATION: AFib. REQUESTING PHYSICIAN: nurse vazquez Kowalski HPI: This is a pleasant, 52-year-old male that presented with GI bleed. He stated that he was vomiting blood and he was passing blood rectally. He decided to come to the emergency room for evaluation. He also complained of dark stool, nausea and abdominal pain. He has a history of AFib. He was anticoagulated with Eliquis. He also has a history of left ventricular dysfunction. He had a LifeVest for 3 months, with followup echo that got better. He denied any chest pain, any dizziness, any shortness of breath or diaphoresis. He is status post EGD and doing good when he went into AFib and cardiology was consulted. PAST MEDICAL HISTORY: AFib, cardiomyopathy, CHF, anemia, PE, hypertension and pneumonia. PAST SURGICAL HISTORY: Noncontributory. SOCIAL HISTORY: No smoking. No drinking. He lives at home with family. MEDICATIONS: See medication list. ALLERGIES: HE IS NOT ALLERGIC TO ANY MEDICATION. REVIEW OF SYSTEMS: Negative, except those mentioned above. He was positive for GI bleed. PHYSICAL EXAMINATION VITAL SIGNS: Temperature 97, heart rate 59, blood pressure 110/59, respirations 20, oxygen saturation 95% on room air. GENERAL: She is obese, awake, alert and oriented times 3. HEENT: Mucous membranes are moist. NECK: Supple. LUNGS: Bilateral clear to auscultation. CARDIOVASCULAR: S1 and S2 present. ABDOMEN: Soft. NEUROLOGIC: Intact. EXTREMITIES: No edema. LABS: Sodium 140, potassium 3.4, chloride 102, CO2 27, BUN 22, creatinine 0.99, glucose 85. White blood cells 7.76, hemoglobin 9.9, hematocrit 29.9, platelets 212. PT 14.1, PTT 29.2, INR 1.05. IMPRESSION 1. Paroxysmal atrial fibrillation. 2. Anemia. 3. Gastrointestinal bleed. 4. Congestive heart failure with left ventricular dysfunction. 5. Hypertension. ASSESSMENT AND PLAN 1. He is status post EGD and doing good. 2. His heart rate went back to normal sinus rhythm. We will go ahead and continue beta blaine. 3. No p.o. anticoagulation due to the GI bleed. 4. He will receive PRBC. 5. Potassium is low and will be replaced. 6. His recent echocardiogram showed improved systolic function with EF 45% to 50%. 7. Further cardiac workup pending clinical course. Thank you for this consultation. Dictated by Chay Zhang NP Job#: [id number]
[2017-12-28] MEDS ORDERED: LOPRESSOR25 MG PO (10:47)
[2017-12-28] MEDS ORDERED: POTASSIUM CHLORIDE 20 MEQ TAB CR PO STA (10:55)
[2017-12-28] MEDS ORDERED: PNEUMOCOCCAL VACCINE POLYVALENT 23 MCG/0.5 ML VIAL IM NR (12:00)
[2017-12-28] MEDS ORDERED: INFLUENZA VIRUS VAC SPLIT INJ 0.5 ML SYR IM NR (12:00)
--- NOTE | 2017-12-28 17:33 | Discharge Summary ---
ADMISSION DIAGNOSES 1. Gastrointestinal bleed secondary to stomach ulcer. 2. Atrial fibrillation. 3. Chronic systolic congestive heart failure. 4. Hypokalemia. 5. Hypocalcemia. DISCHARGE DIAGNOSES 1. Gastrointestinal bleed secondary to stomach ulcer. 2. Atrial fibrillation. 3. Chronic systolic congestive heart failure. 4. Hypokalemia. 5. Hypocalcemia. 6. Hypermagnesemia. HISTORY: The patient has a history of AFib, pulmonary embolism, chronic systolic congestive heart failure. The patient has a surgical history of Luna-en-Y, abdominal hernia repair and abdominal surgery times 1. The patient has a family history of diabetes in his brother and cancer in his sister. The patient's social history includes smoking half a pack per day and alcohol every weekend. He denies illicit drug use. HOSPITAL COURSE: A 52-year-old male complains of hematemesis Sunday after drinking a Michelada. He says that he had an upset stomach that began Sunday, but no nausea or vomiting. He said he figured the blood was due to alcohol or seasoning in the beer. Then Sunday he noticed black stools, which then turned bright red with clot. He denies fever. This is the first time an episode like this has happened. On admission, the patient received 2 units of PRBCs and 1 unit of FFP. EKG showed sinus priyanka at 54. Chest x-ray was negative. Hemoglobin on admission was 8.9 and then dropped on December 23, 2017, to 7.4. The patient had an EGD on December 23, 2017, that showed mild distal esophagitis, small sliding hiatal hernia, status post Luna-en-Y, approximately 5 mm marginal ulcer active bleeding. Epinephrine and fulguration with size 10-Romanian gold probe. Per GI, the patient was started on clear liquid diet and Protonix. The patient tolerated diet well and advanced quickly. He was then kept until he could have a bowel movement, but he did not have a bowel movement for many days despite laxatives and stool softeners. When he did go again #2, the patient had blood in his stool, but per GI, it was likely old blood as the hemoglobin remained stable. Then prior to initial discharge while walking around the unit, the patient went into AFib with RVR. Cardiology had to be consulted who started him on metoprolol 12.5 mg b.i.d. The patient kept overnight again. The patient now running sinus rhythm and tolerating diet. He will discharge home today, and has been cleared per cardiology and gastroenterology. He will follow up with primary care in 1-2 weeks, cardiology and GI in 1-2 weeks. He will discharge home on his pain medicine plus ascorbic acid, stool softener, iron, Protonix, and Os-Rafa-D. The patient will discharge home with family, and understands discharge plan. Vital signs stable. The patient afebrile. DICTATED BY ELIZABET VELASQUEZ NP CHANTE AVALOS MD Job#: [id number] RI
== END 2017-12-28 12:12 | disposition home or self-care (01) | DRG 393 ==
LOC: ER 11:45 → ERHOLD 15:02 → ICU 16:25 → MED/SURG2 12-24 14:25
PROVIDERS: ADMIT Internal Medicine; ATTEND Internal Medicine
PROC: 30233L1 Transfusion of Nonautologous Fresh Plasma into Peripheral Vein, Percutaneous Approach (ICD-10-PCS; principal; 2017-12-22)
PROC: 30233N1 Transfusion of Nonautologous Red Blood Cells into Peripheral Vein, Percutaneous Approach (ICD-10-PCS; 2017-12-23)
PROC: 3E0G8GC Introduction of Other Therapeutic Substance into Upper GI, Via Natural or Artificial Opening Endoscopic (ICD-10-PCS; 2017-12-23)
PROC: 0D578ZZ Destruction of Stomach, Pylorus, Via Natural or Artificial Opening Endoscopic (ICD-10-PCS; 2017-12-23)
PROC: 0W3P8ZZ Control Bleeding in Gastrointestinal Tract, Via Natural or Artificial Opening Endoscopic (ICD-10-PCS; 2017-12-23)
PROC: 0D588ZZ Destruction of Small Intestine, Via Natural or Artificial Opening Endoscopic (ICD-10-PCS; 2017-12-23)
DX: K91.89 Other postprocedural complications and disorders of digestive system (principal); K28.4 Chronic or unspecified gastrojejunal ulcer with hemorrhage; I50.22 Chronic systolic (congestive) heart failure; D62 Acute posthemorrhagic anemia; Z79.01 Long term (current) use of anticoagulants; Z86.711 Personal history of pulmonary embolism; I11.0 Hypertensive heart disease with heart failure; I48.0 Paroxysmal atrial fibrillation; E83.51 Hypocalcemia; E87.6 Hypokalemia; E83.41 Hypermagnesemia; K20.9 Esophagitis, unspecified; K44.9 Diaphragmatic hernia without obstruction or gangrene; B33.24 Viral cardiomyopathy; K59.00 Constipation, unspecified
CPT/HCPCS: 36415; 36430; 43255; 71046; 80048; 80053; 82270; 82550; 82553; 82607; 82728; 82746; 83540; 83735; 83880; 84100; 84439; 84443; 84466; 84484; 85014; 85018; 85025; 85045; 85610; 85730; 86078; 86850; 86900; 86920; 90732; 93005; 96361; 96366; 99284; J1200; J7030; J7040; J7050; P9016; P9017

== ENCOUNTER 2018-10-16 11:56 | Inpatient (IN) | payer BC ==
[~2018-10-16] VITALS: Ht 175.3 cm; Wt 125.2 kg
[~2018-10-16 11:56] MED LIST changes: +ASCORBIC ACID500 MG PO; +Calcium Carbonate PO; +DOCUSATE SODIU100 MG PO; +FERROUS SULFAT325 MG PO; +PANTOPRAZOLE SO40 MG PO
--- NOTE | 2018-10-16 12:40 | NUR ---
PATIENT TO ER ROOM 9 AT THIS TIME
[2018-10-16] MEDS ORDERED: DIATRIZOATE MEGL/DIATRIZOA SOD 30 ML BTL PO ONE (13:13)
[2018-10-16 13:17] LABS: BILIRUBIN,URINE NEGATIVE (NEGATIVE); CLARITY,URINE CLEAR (CLEAR); COLOR,URINE YELLOW (YELLOW); KETONES,URINE NEGATIVE (NEGATIVE); LEUKOCYTE ESTERASE ,URINE NEGATIVE (NEGATIVE); NITRITE,URINE NEGATIVE (NEGATIVE); PROTEIN,URINE DIPSTICK NEGATIVE (NEGATIVE); URINE UROBILINOGEN 0.2 mg/dL (0.2 - 1)
[2018-10-16 13:19] LABS: BASOPHILS % 0.6 % (0.0-1.0); EOSINOPHILS # (AUTO) 0.2 (0.0-0.4); EOSINOPHILS % 2.3 % (0.0-6.0); HEMATOCRIT 37.5 % (38.2-49.6); LYMPHOCYTES # (AUTO) 1.7 (1.0-3.2); LYMPHOCYTES % 25.7 % (18.0-39.1); MEAN CORPUSCULAR HEMOGLOBIN 28.2 pg (28-32); MONOCYTES # (AUTO) 0.6 (0.2-0.8); MONOCYTES % 8.9 % (4.4-11.3); NEUTROPHILS # (AUTO) 4.1 (2.1-6.9); NEUTROPHILS % 62.2 % (38.7-80.0); PLATELET COUNT 267 x10e3/uL (140-360); RED BLOOD COUNT 4.26 x10e6/uL (4.3-5.7); RED CELL DISTRIBUTION WIDTH 13.4 % (11.7-14.4)
[2018-10-16 13:39] LABS: INR 1.08; PROTHROMBIN TIME 14.5 seconds (11.9-14.5)
[2018-10-16 13:40] LABS: PARTIAL THROMBOPLASTIN TIME 33.1 seconds (23.8-35.5)
[2018-10-16 13:50] LABS: ALANINE AMINOTRANSFERASE 15 IU/L (0-55); ALKALINE PHOSPHATASE 100 IU/L (40-150); AMYLASE 54 U/L (25-125); ANION GAP 12.3 mmol/L (8-16); BLOOD UREA NITROGEN 24 mg/dL (7-26); BUN/CREATININE RATIO 25 (6-25); CALCIUM 9.5 mg/dL (8.4-10.2); CARBON DIOXIDE 27 mmol/L (22-29); CHLORIDE 103 mmol/L (98-107); CREATININE, SERUM 0.95 mg/dL (0.72-1.25); EST GLOMERULAR FILTRATION RATE > 60 ML/MIN (60-); GLUCOSE 104 mg/dL (74-118); LIPASE 11 U/L (8-78); MAGNESIUM 2.1 MG/DL (1.3-2.1); POTASSIUM 3.3 mmol/L (3.5-5.1); SODIUM 139 mmol/L (136-145)
[2018-10-16 13:50] LABS: EPITHELIAL CELLS,URINE RARE /LPF
[2018-10-16] MEDS ORDERED: POTASSIUM CHLORIDE 20 MEQ TAB CR PO ONE (14:45)
--- NOTE | 2018-10-16 15:31 | NUR ---
PATIENT IN CT AT THIS TIME
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
--- NOTE | 2018-10-16 16:45 | Diagnostic Imaging Report ---
EXAM: CT Abdomen and Pelvis WITH intravenous contrast INDICATION: Abdominal pain COMPARISON: None. TECHNIQUE: Abdomen and pelvis were scanned utilizing a multidetector helical scanner from the lung base to the pubic symphysis after administration of IV contrast. Coronal and sagittal reformations were obtained. Routine protocol was performed. Scan was performed when during portal venous phase. IV CONTRAST: 100mL of Isovue 370 ORAL CONTRAST: Gastrografin COMPLICATIONS: None RADIATION DOSE: Total DLP: 951.8 mGy*cm Dose modulation, iterative reconstruction, and/or weight based adjustment of the mA/kV was utilized to reduce the radiation dose to as low as reasonably achievable. FINDINGS: LOWER THORAX: Mild bibasilar dependent subsegmental atelectasis. No focal consolidation. Atherosclerotic calcifications of the coronary arteries. HEPATOBILIARY: Diffuse hypoattenuation of the hepatic parenchyma consistent with hepatic steatosis. Circumscribed hypodense area in segment 6 measuring 2.3 cm may represent a cyst versus focal fat. No other focal liver lesion. No biliary ductal dilatation. The gallbladder appears unremarkable. SPLEEN: 3.7 cm cystic structure in the spleen may be related to prior trauma or infection. No splenomegaly. PANCREAS: No focal masses or ductal dilatation. ADRENALS: No adrenal nodules. KIDNEYS/URETERS: No hydronephrosis or renal calculi. Subcentimeter right upper pole renal cyst. PELVIC ORGANS/BLADDER: Unremarkable. PERITONEUM / RETROPERITONEUM: No free air or fluid. LYMPH NODES: No lymphadenopathy. VESSELS: Unremarkable. GI TRACT: Status post gastric bypass surgery. No contrast material in the excluded stomach. No evidence of leak or obstruction. There is a transient small bowel small bowel intussusception in the left upper quadrant, best seen on series 2 image 38. This does not appear to be causing any mechanical obstruction as there is no upstream bowel dilatation. Mild sigmoid colonic diverticulosis with no CT evidence of diverticulitis. BONES AND SOFT TISSUES: Ventral incisional hernia containing fat, transverse colon, and a loop of small bowel. IMPRESSION: Status post gastric bypass surgery with no evidence of leak or obstruction. Transient small bowel intussusception in the left upper quadrant does not appear to be causing any mechanical obstruction. No acute bowel dilatation. Contrast passes successfully distally. Ventral incisional hernia containing fat, transverse colon, and a loop of small bowel. Hepatic steatosis. Signed by: Roxann Mckeon MD on 10/16/2018 4:42 PM
[2018-10-16] MEDS ORDERED: PANTOPRAZOLE 40 MG 10ML VIAL IV STA (17:37)
[2018-10-16] MEDS ORDERED: ONDANSETRON HCL INJ 2MG/ML 2ML 2 MG/ML VIAL IV PRN (17:45)
[2018-10-16] MEDS ORDERED: SODIUM CHLORIDE 0.9% 1000ML 1,000 ML IV ONE (17:45)
[2018-10-16] MEDS ORDERED: MORPHINE SULFATE 2 MG/ML SYR 1ML IV PRN (17:45)
[2018-10-16] MEDS ORDERED: MORPHINE SULFATE INJ 4 MG/ML INJ 1ML IV PRN (18:00)
--- NOTE | 2018-10-16 19:24 | NUR ---
Received report from ER nurse.
--- NOTE | 2018-10-16 19:32 | NUR ---
Patient arrived to floor via w/c.
[2018-10-16 19:40] VITALS: BP 127/62
[2018-10-16 20:00] VITALS: BP 127/62
[2018-10-16] MEDS ORDERED: SODIUM CHLORIDE 0.9% 50ML 50 ML ONE (21:01)
[2018-10-16] MEDS ORDERED: IOPAMIDOL 370 MG/ML 200 ML INFUS..BTL INJ ONE (21:01)
[2018-10-17] VITALS (7 sets, daily range): BP systolic 114–133; BP diastolic 58–64
--- NOTE | 2018-10-17 | NUR ---
Dr Mayorga on the floor to see patient. No new orders. Patient in bed spouse at bedside. Denies pain or discomfort at this time. IV intact to left AC 20G. Patient NPO after MN. Patient aware.
--- NOTE | 2018-10-17 | NUR ---
Admit done. Patient in bed denies pain or discomfort at this time. at bedside. IV intact to left FA 20G HL. continue monitor.
[2018-10-17 05:48] LABS: BASOPHILS % 0.6 % (0.0-1.0); EOSINOPHILS # (AUTO) 0.2 (0.0-0.4); EOSINOPHILS % 2.5 % (0.0-6.0); HEMATOCRIT 32.6 % (38.2-49.6); HEMOGLOBIN 10.3 g/dL (14.0-18.0); LYMPHOCYTES % 30.5 % (18.0-39.1); MEAN CORPUSCULAR HEMOGLOBIN 27.7 pg (28-32); MEAN CORPUSCULAR HGB CONC 31.6 g/dL (31-35); MEAN CORPUSCULAR VOLUME 87.6 fL (81-99); MONOCYTES # (AUTO) 0.5 (0.2-0.8); MONOCYTES % 7.4 % (4.4-11.3); NEUTROPHILS # (AUTO) 3.8 (2.1-6.9); NEUTROPHILS % 58.7 % (38.7-80.0); PLATELET COUNT 236 x10e3/uL (140-360); RED BLOOD COUNT 3.72 x10e6/uL (4.3-5.7); RED CELL DISTRIBUTION WIDTH 13.4 % (11.7-14.4)
[2018-10-17 06:09] LABS: ALANINE AMINOTRANSFERASE 13 IU/L (0-55); ALBUMIN 3.1 g/dL (3.5-5.0); ALKALINE PHOSPHATASE 81 IU/L (40-150); ANION GAP 11.1 mmol/L (8-16); BLOOD UREA NITROGEN 19 mg/dL (7-26); BUN/CREATININE RATIO 25 (6-25); CALCIUM 8.8 mg/dL (8.4-10.2); CARBON DIOXIDE 26 mmol/L (22-29); CHLORIDE 104 mmol/L (98-107); CREATININE, SERUM 0.77 mg/dL (0.72-1.25); EST GLOMERULAR FILTRATION RATE > 60 ML/MIN (60-); GLUCOSE 90 mg/dL (74-118); POTASSIUM 4.1 mmol/L (3.5-5.1); SODIUM 137 mmol/L (136-145)
--- NOTE | 2018-10-17 06:32 | NUR ---
No noted change in patient condition. Continue monitor.
[2018-10-17] MEDS ORDERED: FERROUS SULFATE 325 MG TAB PO SCH (08:00)
[2018-10-17] MEDS: SUCRALFATE 1 GM/10 ML SUSP NG SCH ×4 (08:15→21:48)
[2018-10-17] MEDS: AMIODARONE HCL 200 MG TAB PO SCH ×2 (08:41→17:00)
[2018-10-17] MEDS ORDERED: ASCORBIC ACID 500 MG TAB PO SCH (09:00)
[2018-10-17] MEDS ORDERED: METOPROLOL TARTRATE 25 MG TAB PO SCH (09:00)
[2018-10-17] MEDS: FUROSEMIDE 40 MG TAB PO SCH ×2 (09:00→17:00)
[2018-10-17] MEDS ORDERED: DIGOXIN 0.125 MG TAB PO SCH (09:00)
[2018-10-17] MEDS: LISINOPRIL 2.5 MG TAB PO SCH (09:00)
[2018-10-17] MEDS ORDERED: DOCUSATE SODIUM 100 MG CAP PO SCH (09:00)
[2018-10-17] MEDS ORDERED: PANTOPRAZOLE 40 MG 10ML VIAL IV SCH (09:00)
[2018-10-17] MEDS: PANTOPRAZOLE SOD 40 MG TABEC PO SCH (09:00)
--- NOTE | 2018-10-17 11:17 | Consultation ---
DATE OF CONSULTATION: 10/17/2018 CHIEF COMPLAINT: Abdominal pain. HISTORY OF PRESENT ILLNESS: This patient is a 53-year-old male with 2-day history of upper abdominal pain, slightly on the left side, cramping in nature, and intermittent vomiting without hematemesis. No diarrhea. No fever or chills. The patient gave a history of gastric bypass surgery eight years ago with some problem in the last two years including bleeding anastomosis ulcer as well as bowel obstruction, requiring exploratory repair without resection. PAST MEDICAL HISTORY: Positive for morbid obesity, atrial fibrillation, pneumonia, history of anastomotic ulcer related to gastric bypass surgery, and small bowel obstruction requiring operative intervention. PAST SURGICAL HISTORY: Positive for gastric bypass surgery, upper GI endoscopy, exploratory lap, and lysis of adhesions. ALLERGIES: HE HAS NO DRUG ALLERGIES. SOCIAL HABITS: He smokes, but denies alcohol abuse. REVIEW OF SYSTEMS: No chest pain or shortness of breath. No cough. PHYSICAL EXAMINATION: VITAL SIGNS: Stable, afebrile. He is awake, alert, in no apparent distress. HEENT: Sclerae nonicteric. NECK: Supple. LUNGS: Clear. HEART: Regular rate and rhythm. ABDOMEN: Soft. No tenderness or mass. There is a midline supraumbilical ventral hernia. EXTREMITIES: No cyanosis or edema. LABORATORY DATA: White cell count of 6, hemoglobin of 10, and platelet count of 236. Creatinine 0.7. Liver function tests within normal limits. CT of the abdomen showed the patient is status post gastric bypass surgery with no evidence of obstruction. There is a small bowel intussusception in the left upper quadrant without mechanical obstruction. Incisional hernia containing colon and loops of small bowel. ASSESSMENT: Abdominal pain related to intussusception seen on CT scan, which may have resolved since admission. PLAN: Repeat abdominal x-ray. Recommend interval repair of intussusception and incisional hernia even if current episode has improved. Management planned according to findings. Thank you for consultation. Cedrick Monson MD DNYolanda/MODL /[id number]
--- NOTE | 2018-10-17 11:49 | Diagnostic Imaging Report ---
Abdomen, 1 view. History: Intussusception on CT. Comparison: CT abdomen 10/16/2018. Findings: Scattered air-filled loops of small bowel are seen in the left abdomen, some dilated measuring up to 5 cm in diameter. Air and residual contrast are present within the colon. Suture material is present in the left upper quadrant. There are no masses or abnormal calcifications. The osseous structures are intact. IMPRESSION: Mild proximal small bowel dilatation may represent partial obstruction. Signed by: Ashok Castro on 10/17/2018 11:46 AM
--- NOTE | 2018-10-17 14:03 | NUR ---
PT DISCUSSED IN BARRIER ROUNDS; ERLIN CONSULTED STATES REPEAT ABD CT TO SEE IF RESOLVED, Abiola BECERRIL CONSULTED WAITING ON MD TO SEE PT.
--- NOTE | 2018-10-17 20:09 | NUR ---
Received change of shift report from AM nurse. Walking rounds completed.
[2018-10-17] MEDS: METOPROLOL TARTRATE 25 MG TAB PO SCH (21:00)
[2018-10-18] VITALS (7 sets, daily range): BP systolic 94–117; BP diastolic 52–66
[2018-10-18 05:52] LABS: BASOPHILS % 0.5 % (0.0-1.0); EOSINOPHILS # (AUTO) 0.2 (0.0-0.4); EOSINOPHILS % 3.3 % (0.0-6.0); HEMATOCRIT 33.1 % (38.2-49.6); HEMOGLOBIN 10.5 g/dL (14.0-18.0); LYMPHOCYTES # (AUTO) 1.9 (1.0-3.2); LYMPHOCYTES % 32.1 % (18.0-39.1); MEAN CORPUSCULAR HEMOGLOBIN 27.6 pg (28-32); MEAN CORPUSCULAR HGB CONC 31.7 g/dL (31-35); MEAN CORPUSCULAR VOLUME 87.1 fL (81-99); MONOCYTES # (AUTO) 0.5 (0.2-0.8); MONOCYTES % 8.3 % (4.4-11.3); NEUTROPHILS # (AUTO) 3.4 (2.1-6.9); NEUTROPHILS % 55.5 % (38.7-80.0); PLATELET COUNT 232 x10e3/uL (140-360); RED CELL DISTRIBUTION WIDTH 13.4 % (11.7-14.4)
[2018-10-18 06:16] LABS: ANION GAP 11.1 mmol/L (8-16); BLOOD UREA NITROGEN 14 mg/dL (7-26); BUN/CREATININE RATIO 17 (6-25); CALCIUM 9.2 mg/dL (8.4-10.2); CARBON DIOXIDE 27 mmol/L (22-29); CHLORIDE 104 mmol/L (98-107); CREATININE, SERUM 0.81 mg/dL (0.72-1.25); EST GLOMERULAR FILTRATION RATE > 60 ML/MIN (60-); GLUCOSE 96 mg/dL (74-118); POTASSIUM 4.1 mmol/L (3.5-5.1); SODIUM 138 mmol/L (136-145)
--- NOTE | 2018-10-18 07:00 | NUR ---
RECEIVED PATIENT IN REPORT. PATIENT RESTING IN BED AT THIS TIME. NO PAIN REPORTED. NO S&S OF DISTRESS. AT BEDSIDE. BED LOCKED IN LOWEST POSITION, SIDE RAILS UPX2, CALL LIGHT IN REACH.
[2018-10-18] MEDS: SUCRALFATE 1 GM/10 ML SUSP NG SCH ×4 (07:30→20:51)
--- NOTE | 2018-10-18 08:41 | NUR ---
MD KERN CALLED TO ASK IF PATIENT WANTED SURGERY. PATIENT AND STATED THEY WANT TO DO IT TODAY IF POSSIBLE, IF NOT UNTIL SUNDAY, WOULD PREFER TO GO HOME AND SCHEDULE SURGERY FOR SUNDAY. RELAYED MESSAGE TO MD KERN. HE STATED HE WOULD LET THEM KNOW. WILL WAIT TO HEAR BACK FROM HIM ON SCHEDULING OR CALL BACK IN A FEW HOURS TO DETERMINE WHAT THE PLAN WILL BE.
[2018-10-18] MEDS: AMIODARONE HCL 200 MG TAB PO SCH ×2 (08:44)
[2018-10-18] MEDS: FUROSEMIDE 40 MG TAB PO SCH ×2 (08:45)
[2018-10-18] MEDS: METOPROLOL TARTRATE 25 MG TAB PO SCH ×2 (08:45→21:00)
[2018-10-18] MEDS: LISINOPRIL 2.5 MG TAB PO SCH (08:46)
[2018-10-18] MEDS: PANTOPRAZOLE SOD 40 MG TABEC PO SCH (08:47)
[2018-10-18] MEDS ORDERED: METOPROLOL TARTRATE 25 MG TAB PO SCH (09:00)
[2018-10-18] MEDS: LIDOCAINE 5% PATCH TP SCH (09:26)
--- NOTE | 2018-10-18 09:56 | NUR ---
SPOKE WITH MD KERN, SURGERY SCHEDULED FOR AROUND 1400 TODAY. ORDER RECEIVED TO COMPLETE INFORMED CONSENT FOR REPAIR OF INCISIONAL HERNIA AND INTUSSUSCEPTION.
--- NOTE | 2018-10-18 10:09 | NUR ---
SPOKE WITH MD KERN AGAIN CONCERNING ORDER FOR ABDOMINAL CT WITH CONTRAST AND SURGERY THIS AFTERNOON. PATIENT HAS HAD 1/3 OF CONTRAST FLUID. ORDERED TO STOP CONTRAST AND RUN CT IS, SURGERY STILL OKAY TO PROCEED.
--- NOTE | 2018-10-18 10:52 | NUR ---
PATIENT OFF UNIT FOR CT AT THIS TIME.
--- NOTE | 2018-10-18 11:51 | Diagnostic Imaging Report ---
EXAM: CT Abdomen and Pelvis WITH intravenous contrast INDICATION: Intussusception follow-up COMPARISON: CT abdomen and pelvis of 10/17/2019 TECHNIQUE: Abdomen and pelvis were scanned utilizing a multidetector helical scanner from the lung base to the pubic symphysis after administration of IV contrast. Coronal and sagittal reformations were obtained. Routine protocol was performed. Scan was performed when during portal venous phase. IV CONTRAST: 100mL of Isovue 370 ORAL CONTRAST: Volumen COMPLICATIONS: None RADIATION DOSE: Total DLP: 836.1 mGy*cm Dose modulation, iterative reconstruction, and/or weight based adjustment of the mA/kV was utilized to reduce the radiation dose to as low as reasonably achievable. FINDINGS: LOWER THORAX: Mild bibasilar dependent subsegmental atelectasis. No focal consolidation. Atherosclerotic calcifications of the coronary arteries. HEPATOBILIARY: Diffuse hypoattenuation of the hepatic parenchyma consistent with hepatic steatosis. Circumscribed hypodense area in segment 6 measuring 2.3 cm may represent a cyst versus focal fat. No other focal liver lesion. No biliary ductal dilatation. The gallbladder appears unremarkable. SPLEEN: 3.7 cm cystic structure in the spleen may be related to prior trauma or infection. No splenomegaly. PANCREAS: No focal masses or ductal dilatation. ADRENALS: No adrenal nodules. KIDNEYS/URETERS: No hydronephrosis or renal calculi. Subcentimeter right upper pole renal cyst. PELVIC ORGANS/BLADDER: Unremarkable. PERITONEUM / RETROPERITONEUM: No free air or fluid. LYMPH NODES: No lymphadenopathy. VESSELS: Unremarkable. GI TRACT: Status post gastric bypass surgery. No contrast material in the excluded stomach. No evidence of leak or obstruction. Compared to the prior study of 10/16/2018, there appears to be interval reduction of the transient small bowel intussusception in the left abdomen at the site of prior anastomosis. There is a small amount of fluid within the bowel at this area without evidence of obstruction. There is no proximal bowel wall thickening or bowel distention to suggest mechanical obstruction. BONES AND SOFT TISSUES: Ventral incisional hernia containing fat and transverse colon. IMPRESSION: Interval reduction of transient small bowel intussusception in the left abdomen at the site of prior anastomosis. Small amount of fluid within the bowel in this area with no evidence of mechanical obstruction. Ventral incisional hernia containing fat and transverse colon. Hepatic steatosis. Signed by: Roxann Mckeon MD on 10/18/2018 11:48 AM
[2018-10-18] MEDS ORDERED: SODIUM CHLORIDE 0.9% 50ML 50 ML ONE (12:25)
[2018-10-18] MEDS ORDERED: IOPAMIDOL 370 MG/ML 200 ML INFUS..BTL INJ ONE (12:25)
[2018-10-18] MEDS ORDERED: BUPIVACAINE HCL 0.5% INJ 30 ML VIAL INJ ONE (12:45)
[2018-10-18] MEDS ORDERED: BACITRACIN 50,000 UNIT VIAL ONE (12:50)
--- NOTE | 2018-10-18 13:05 | NUR ---
PATIENT OFF UNIT FOR SURGERY AT THIS TIME.
--- NOTE | 2018-10-18 16:44 | NUR ---
PATIENT BACK FROM OR AT THIS TIME. PATIENT IS DROWSY, BUT EASILY AROUSED. PATIENT STATES PAIN IS 5/10 BUT MANAGEABLE. ABDOMINAL BINDER IN PLACE, C/D/I. PATIENT DRINKING SOME WATER, TOLERATING WELL. VITALS STABLE. WILL CONTINUE TO MONITOR.
--- NOTE | 2018-10-18 19:01 | Operative Report ---
DATE OF PROCEDURE: 10/18/2018 SURGEON: Cedrick Monson MD PREOPERATIVE DIAGNOSES: Intussusception post gastric bypass and incisional hernia. POSTOPERATIVE DIAGNOSES: Intussusception post gastric bypass and incisional hernia. OPERATIVE PROCEDURES: Repair of intussusception with intestinal plication and incisional hernia repair. ANESTHESIA: General. INDICATION: A 53-year-old male admitted with abdominal pain, vomiting, who had a gastric bypass years ago. The patient was found on CT scan to have an intussusception. He has consented for repair with attendant risks discussed. PROCEDURE FINDING: Reducible intussusception of the jejunojejunostomy anastomosis with viable intestine. Incisional hernia with reducible transverse colon. DESCRIPTION OF PROCEDURE: The patient was brought to the OR intubated, the abdomen prepped with alcohol and draped in sterile fashion. Upper midline incision was made through the previous scar, excising the scar itself entering the fascia in the midline. A large hernia defect is noted in the supraumbilical and basically the smaller incisional hernia occurring the entire length of the upper midline incisions from breakdown of prior fascial repair. We then proceeded to take down adhesions of omentum to the anterior abdominal wall particularly dense on the left side after which the small bowel was visible. We then proceeded to identify the transverse colon and the gastric bypass anatomy was delineated with palpation and following the roots of the mesentery. This is a retrocolic gastric bypass and the jejunojejunostomy identified and the biliary pancreatic limb is identified approximately 40 cm in length with a [id number] anastomosis. The alimentary limb proximal to anastomosis noted to be dilated suggesting it is a part of the intussusception, which is reduced just prior to surgery or during anesthesia induction. The loops of bowel distal to the jejunojejunostomy anastomosis, which is a common channel is noted to be mildly dilated but viable. At this point, we then proceeded to plicate the jejunojejunostomy distal to the anastomosis with several interrupted seromuscular stitches of 3-0 Vicryl for approximately 6 cm between the common channel and the biliopancreatic limb. Some additional stitches also placed proximal to the anastomosis between the biliary pancreatic limb and the alimentary limb using the same 3-0 Vicryl seromuscular stitches. This helped plicating and stabilize the intestine around the anastomosis. At this point, hemostasis achieved. We then proceeded to repair the incisional hernia, which involved the entire length of the upper midline incisions. The hernia sac was excised from the fascial edge and the fascial edge was then approximated under minimal tension with interrupted [id number] stitches using #1 Prolene. After fascial repair subcutaneous tissue was irrigated and approximated with 3-0 Vicryl for the Livia layers and the skin was closed with wilson. The patient then extubated and transported in a guarded condition to recovery room. ESTIMATED BLOOD LOSS: 10 mL. MD LUIS MANUEL Goldberg/ANTONY /[id number]
[2018-10-18] MEDS ORDERED: CEFAZOLIN SOD 1 GM VIAL ONE (19:53)
[2018-10-18] MEDS ORDERED: METOPROLOL TARTRATE INJ 1 MG/ML VIAL ONE (19:53)
[2018-10-18] MEDS ORDERED: NEOSTIGMINE 5 MG/5ML SYR ONE (19:53)
[2018-10-18] MEDS ORDERED: ACETAMINOPHEN 1000 MG/100 ML IV ONE (19:53)
[2018-10-18] MEDS ORDERED: FENTANYL CITRATE/PF 100MCG/2 ML INJ ONE (19:53)
[2018-10-18] MEDS ORDERED: SEVOFLURANE INHAL SOLN 250 ML PEN BTL ONE (19:53)
[2018-10-18] MEDS ORDERED: LIDOCAINE HCL 2% LOCAL INJ 5 ML SDV VIAL INJ ONE (19:53)
[2018-10-18] MEDS ORDERED: ESMOLOL HCL 100MG/10ML 10 MG/ML VIAL ONE (19:53)
[2018-10-18] MEDS ORDERED: DEXAMETHASONE SOD PHOS INJ 4 MG/ML VIAL ONE (19:53)
[2018-10-18] MEDS ORDERED: ONDANSETRON HCL INJ 2MG/ML 2ML 2 MG/ML VIAL ONE (19:53)
[2018-10-18] MEDS ORDERED: ROCURONIUM BROMIDE 10 MG/ML 5ML VIAL ONE (19:53)
[2018-10-18] MEDS ORDERED: GLYCOPYRROLATE INJ 1MG/ 5 ML SYR ONE (19:53)
[2018-10-18] MEDS ORDERED: PROPOFOL IV EMULSION 10 MG/ML 20 ML VIAL ONE (19:53)
[2018-10-18] MEDS ORDERED: MIDAZOLAM HCL 2 MG/2 ML VIAL ONE (19:53)
[2018-10-18] MEDS: D5.45%NS/KCL 20MEQ 1,000 ML IV SCH (21:15)
[2018-10-19] VITALS (9 sets, daily range): BP systolic 93–131; BP diastolic 46–75
[2018-10-19 03:29] LABS: BASOPHILS % 0.1 % (0.0-1.0); HEMATOCRIT 33.2 % (38.2-49.6); HEMOGLOBIN 10.9 g/dL (14.0-18.0); LYMPHOCYTES # (AUTO) 0.8 (1.0-3.2); LYMPHOCYTES % 6.5 % (18.0-39.1); MEAN CORPUSCULAR HEMOGLOBIN 27.9 pg (28-32); MEAN CORPUSCULAR HGB CONC 32.8 g/dL (31-35); MEAN CORPUSCULAR VOLUME 85.1 fL (81-99); MONOCYTES # (AUTO) 0.5 (0.2-0.8); MONOCYTES % 3.8 % (4.4-11.3); NEUTROPHILS # (AUTO) 11.2 (2.1-6.9); PLATELET COUNT 272 x10e3/uL (140-360); RED CELL DISTRIBUTION WIDTH 13.2 % (11.7-14.4)
[2018-10-19 03:50] LABS: ANION GAP 12.5 mmol/L (8-16); BLOOD UREA NITROGEN 11 mg/dL (7-26); BUN/CREATININE RATIO 14 (6-25); CALCIUM 9.1 mg/dL (8.4-10.2); CARBON DIOXIDE 24 mmol/L (22-29); CHLORIDE 104 mmol/L (98-107); CREATININE, SERUM 0.79 mg/dL (0.72-1.25); EST GLOMERULAR FILTRATION RATE > 60 ML/MIN (60-); GLUCOSE 130 mg/dL (74-118); POTASSIUM 4.5 mmol/L (3.5-5.1); SODIUM 136 mmol/L (136-145)
[2018-10-19] MEDS: D5.45%NS/KCL 20MEQ 1,000 ML IV SCH ×3 (04:50→21:45)
--- NOTE | 2018-10-19 06:50 | NUR ---
RECEIVED PATIENT RESTING IN BED. NO ACUTE DISTRESS NOTED. FAMILY MEMBER AT BEDSIDE. DENIES PAIN OR DISCOMFORT AT THIS TIME. CALL LIGHT WITHIN REACH. BED IN THE LOWEST POSITION.
[2018-10-19] MEDS: LISINOPRIL 2.5 MG TAB PO SCH (08:21)
[2018-10-19] MEDS: LIDOCAINE 5% PATCH TP SCH (08:22)
[2018-10-19] MEDS: SUCRALFATE 1 GM/10 ML SUSP NG SCH ×4 (08:22→21:47)
[2018-10-19] MEDS: PANTOPRAZOLE SOD 40 MG TABEC PO SCH (08:22)
[2018-10-19] MEDS: AMIODARONE HCL 200 MG TAB PO SCH (08:22)
[2018-10-19] MEDS: FUROSEMIDE 40 MG TAB PO SCH (08:22)
[2018-10-19] MEDS: APIXABAN 5 MG TABLET PO SCH (16:17)
--- NOTE | 2018-10-19 19:36 | NUR ---
REPORT GIVEN TO ONCOMING NURSE, WALKING ROUNDS DONE. PATIENT IS IN STABLE CONDITION. NO ACUTE DISTRESS NOTED. FAMILY AT BEDSIDE. CALL LIGHT WITHIN REACH. BED IN THE LOWEST POSITION.
--- NOTE | 2018-10-19 20:11 | NUR ---
PATIENT AMBULATING IN THE ALLEN, HIS IS AT HIS SIDE. NO DISTRESS OBSERVED, HE DENIES PAIN.
[2018-10-19] MEDS: METOPROLOL TARTRATE 25 MG TAB PO SCH (21:47)
--- NOTE | 2018-10-19 22:51 | NUR ---
PATIENT C/O NAUSEA AND ABDOMINAL PAIN, MEDICATED WITH MORPHINE AND ZOFRAN ORDERED. CALL LIGHT WITHIN EASY REACH, HE'S INSTRUCTED TO CALL FOR ASSISTANCE NEEDED.
--- NOTE | 2018-10-20 00:36 | NUR ---
DR BECERRIL SAW THE PATIENT, PLAN IS TO INCREASE THE IV FLUID RATE TO 250ML/HR AND PROVIDE INCENTIVE SPIROMETRY FOR FREQUENT USE. Addendum: 10/20/18 at 0040 by Ivelisse Campuzano RN WRONG PATIENT
--- NOTE | 2018-10-20 00:40 | NUR ---
DR BECERRIL SAW THE PATIENT, NO NEW ORDER RECEIVED.
[2018-10-20 00:46] VITALS: BP 108/58
[2018-10-20 04:38] VITALS: BP 112/53
[2018-10-20] MEDS: D5.45%NS/KCL 20MEQ 1,000 ML IV SCH (05:46)
--- NOTE | 2018-10-20 06:52 | NUR ---
RECEIVED PATIENT RESTING IN BED. NO ACUTE DISTRESS NOTED. CALL LIGHT WITHIN REACH. BED IN THE LOWEST POSITION.
[2018-10-20 07:10] LABS: BASOPHILS % 0.4 % (0.0-1.0); EOSINOPHILS # (AUTO) 0.1 (0.0-0.4); HEMATOCRIT 32.2 % (38.2-49.6); LYMPHOCYTES # (AUTO) 2.2 (1.0-3.2); LYMPHOCYTES % 28.6 % (18.0-39.1); MEAN CORPUSCULAR HEMOGLOBIN 27.4 pg (28-32); MEAN CORPUSCULAR HGB CONC 31.1 g/dL (31-35); MEAN CORPUSCULAR VOLUME 88.2 fL (81-99); MONOCYTES # (AUTO) 0.5 (0.2-0.8); MONOCYTES % 6.9 % (4.4-11.3); NEUTROPHILS # (AUTO) 4.9 (2.1-6.9); NEUTROPHILS % 62.8 % (38.7-80.0); PLATELET COUNT 234 x10e3/uL (140-360); RED BLOOD COUNT 3.65 x10e6/uL (4.3-5.7); RED CELL DISTRIBUTION WIDTH 13.4 % (11.7-14.4)
[2018-10-20 07:27] LABS: ANION GAP 11.1 mmol/L (8-16); BLOOD UREA NITROGEN 9 mg/dL (7-26); BUN/CREATININE RATIO 12 (6-25); CALCIUM 8.8 mg/dL (8.4-10.2); CARBON DIOXIDE 26 mmol/L (22-29); CHLORIDE 105 mmol/L (98-107); CREATININE, SERUM 0.77 mg/dL (0.72-1.25); EST GLOMERULAR FILTRATION RATE > 60 ML/MIN (60-); GLUCOSE 93 mg/dL (74-118); POTASSIUM 4.1 mmol/L (3.5-5.1); SODIUM 138 mmol/L (136-145)
[2018-10-20 07:39] VITALS: BP 115/71
[2018-10-20] MEDS: AMIODARONE HCL 200 MG TAB PO SCH (08:30)
[2018-10-20] MEDS: SUCRALFATE 1 GM/10 ML SUSP NG SCH ×2 (08:30→11:32)
[2018-10-20] MEDS: LIDOCAINE 5% PATCH TP SCH (08:30)
[2018-10-20] MEDS: APIXABAN 5 MG TABLET PO SCH (08:30)
[2018-10-20] MEDS: LISINOPRIL 2.5 MG TAB PO SCH (08:30)
[2018-10-20] MEDS: PANTOPRAZOLE SOD 40 MG TABEC PO SCH (08:30)
[2018-10-20] MEDS: FUROSEMIDE 40 MG TAB PO SCH (08:30)
[2018-10-20] MEDS ORDERED: LISINOPRIL2.5 MG PO (08:31)
[2018-10-20] MEDS ORDERED: TYLENOL # 31 EA PO (08:31)
[2018-10-20] MEDS ORDERED: LOPRESSOR25 MG PO (08:31)
[2018-10-20] MEDS ORDERED: SUCRALFATE1 G/10 ML PO (08:31)
[2018-10-20] MEDS ORDERED: FUROSEMIDE40 MG PO (08:31)
[2018-10-20 10:32] VITALS: BP 115/71
[2018-10-20 11:32] VITALS: BP 108/70
--- NOTE | 2018-10-20 13:50 | NUR ---
NOTIFIED IVIS MCNEAL OF PATIENT GOING TO AFIB IN THE 130S UPON EXERTION. NO NEW ORDERS FROM TRAFFIC CONTROL SIGNALER, PATIENT HAS HISTORY OF AFIB.
--- NOTE | 2018-10-20 14:51 | NUR ---
RECEIVED DC ORDER FROM BATTERY CONTAINER FINISHING HAND. PATIENT IS IN STABLE CONDITION. IS AT BEDSIDE. IV LINE TO LEFT FOREARM DCD WITH TIP INTACT, PRESSURE APPLIED TO SITE, NO BLEEDING NOTED. DISCHARGE TEACHING PROVIDED TO PATIENT AND , THEY BOTH VERBALIZED UNDERSTANDING. DISCHARGE FOLDER WITH PRESCRIPTIONS AND PERSONAL ITEMS ON HAND. PATIENT ACCOMPANIED TO PRIVATE AUTO BY STAFF, REFUSED WHEELCHAIR.
--- NOTE | 2018-10-20 23:11 | Discharge Summary ---
ADMISSION DIAGNOSES: Small bowel intussusception, atrial fibrillation, chronic systolic congestive heart failure, history of pulmonary embolism, history of gastric ulcers, morbid obesity. DISCHARGE DIAGNOSES: Small bowel intussusception, atrial fibrillation, chronic systolic congestive heart failure, history of pulmonary embolism, history of gastric ulcers, morbid obesity, ventral incisional hernia. HISTORY: The patient has a history of atrial fibrillation, chronic systolic CHF, PE, stomach ulcers. SURGICAL HISTORY: Luna-en-Y and abdominal hernia repair. FAMILY HISTORY: The patient's brother has diabetes. The patient's sister had cancer. SOCIAL HISTORY: Occasional alcohol use and half a pack of cigarettes a day. HOSPITAL COURSE: A 53-year-old male complains of intermittent sharp abdominal pain that began 4 days ago. He has associated nausea, but denies vomiting and diarrhea. Symptoms improved with sucralfate and worsened with eating. On admission, CT of the brain was done because the patient fell prior to admission that showed a right parietal scalp hematoma without fracture. No acute intracranial abnormality. CT of the abdomen and pelvis showed transient small bowel intussusception in the left upper quadrant, does not appear to be causing any mechanical obstruction. No acute bowel dilatation. Ventral incisional hernia containing fat, transverse colon, and loops of small bowel, hepatic steatosis. Followup KUB showed mild proximal small bowel dilatation, which may represent partial obstruction. Repeat CT of the abdomen on 10/18, showed interval reduction of transient small bowel intussusception in the left abdomen at the site of the prior anastomosis. Small amount of fluid within the bowel with no evidence of obstruction. Ventral incisional hernia containing fat and transverse colon, hepatic steatosis. On 10/18, the patient had a repair of the intussusception with intestinal plication and incisional hernia repair. The patient tolerated the procedure well and diet was advanced quickly. He was passing gas and virtually pain free. The patient was cleared by Surgery and will discharge home with prescriptions for Tylenol No.3 p.r.n. The patient and understand discharge instructions and agreed to plan. Vital signs stable, the patient afebrile. Dictated by Meghana Talbot NP MD RACHANA Diamond/MODYolanda /[id number]
[2018-10-29] MEDS ORDERED: LEVAQUIN500 MG PO (06:30)
[2018-10-29] MEDS ORDERED: PROAIR HFA INH8.5 GM INH (06:30)
[2018-10-29] MEDS ORDERED: MUCINEX600 MG PO (06:30)
[2018-11-05] MEDS ORDERED: FLOMAX0.4 MG PO (10:42)
[2018-11-05] MEDS ORDERED: KLOR-CON M2020 MEQ PO (10:42)
[2018-11-05] MEDS ORDERED: AMIODARONE HCL200 MG PO (10:42)
== END 2018-10-20 14:36 | disposition home or self-care (01) | DRG 345 ==
LOC: ER 11:56 → ERHOLD 17:37 → MED/SURG3 19:33
PROVIDERS: ADMIT Internal Medicine; ATTEND Internal Medicine
PROC: 0WQF0ZZ Repair Abdominal Wall, Open Approach (ICD-10-PCS; 2018-10-18)
PROC: 0DSA0ZZ Reposition Jejunum, Open Approach (ICD-10-PCS; principal; 2018-10-18 11:30)
DX: K55.1 Chronic vascular disorders of intestine (principal); I50.22 Chronic systolic (congestive) heart failure; Z68.41 Body mass index [BMI] 40.0-44.9, adult; K56.7 Ileus, unspecified; I48.91 Unspecified atrial fibrillation; Z79.01 Long term (current) use of anticoagulants; I11.0 Hypertensive heart disease with heart failure; E66.01 Morbid (severe) obesity due to excess calories; K43.2 Incisional hernia without obstruction or gangrene; Z98.84 Bariatric surgery status; Z86.711 Personal history of pulmonary embolism
CPT/HCPCS: 36415; 70450; 74018; 74177; 80048; 80053; 81001; 82150; 83690; 83735; 83880; 85025; 85610; 85730; 87086; 93005; 96376; 99284; J0690; J1100; J2001; J2250; J2270; J2405; J3010; J7030; Q9967

== ENCOUNTER 2018-12-02 02:32 | Inpatient (IN) | payer BC ==
[2018-12-02] VITALS (8 sets, daily range): BP systolic 98–137; BP diastolic 55–78
[~2018-12-02] VITALS: Ht 175.3 cm; Wt 115.2 kg
[~2018-12-02 02:32] MED LIST changes: +FLOMAX0.4 MG PO; +KLOR-CON M2020 MEQ PO; +LEVAQUIN500 MG PO; +LISINOPRIL2.5 MG PO; +MUCINEX600 MG PO; +PROAIR HFA INH8.5 GM INH; +SUCRALFATE1 G/10 ML PO; +TYLENOL # 31 EA PO
[2018-12-02] MEDS: SODIUM CHLORIDE 0.9% 1000ML 1,000 ML IV SCH ×3 (03:20→18:44)
--- OUTSIDE RECORDS SUMMARY | 2018-12-02 03:41 | XMS REPORT | Clinical Summary ---
Author Author Franco Islam Organization [facility] Address Unknown Phone Unavailable Care Team Providers Care Personal Support Worker Name Role Phone Chai Tavares DO PCP Allergies No Known Allergies Medications End Date Status Medication Sig Dispensed Refills Start Date Active metoprolol tartrate Take 25 mg by 0 (LOPRESSOR) 25 mg tablet mouth daily. Active sucralfate (CARAFATE) 1 Take 1 g by 0 gram tablet mouth 3 (three) times a day with meals. Active apixaban (ELIQUIS) 5 mg Take 5 mg by 0 tablet mouth 2 (two) times a day. Active amIODarone (PACERONE) 200 Take 200 mg 0 MG tablet by mouth daily. Active furosemide (LASIX) 40 mg Take 40 mg by 0 tablet mouth daily. Active lisinopril Take 2.5 mg 0 (PRINIVIL,ZESTRIL) 2.5 mg by mouth tablet daily. Active Problems Not on file Encounters Care Team Description Date Type Specialty Fabián Mcdonnell MD Complication of internal intestinal anastomosis and bypass (Primary Dx); Intra-abdominal infection; Generalized abdominal pain; Wound dehiscence, surgical, initial encounter; Intractable pain 12/01/2018 Emergency Emergency Medicine - 12/02/2018 N/A 12/01/2018 Intake Access after 12/01/2017 Social History Date Tobacco Use Types Packs/Day Years Used Current Some Day Smoker Smokeless Tobacco: Never Used Drinks/Week oz/Week Comments Alcohol Use occassionally Yes Sex Assigned at Date Recorded Not on file Industry Job Start Date Occupation Not on file Not on file Not on file Travel End Travel History Travel Start No recent travel history available. Last Filed Vital Signs Reading Time Taken Comments Vital Sign 96/69 12/02/2018 2:30 AM CDT Blood Pressure 57 12/02/2018 2:30 AM CDT Pulse 36.4 C (97.5 F) 12/02/2018 2:30 AM CDT Temperature 21 12/02/2018 2:30 AM CDT Respiratory Rate 96% 12/02/2018 2:30 AM CDT Oxygen Saturation - - Inhaled Oxygen Concentration 116 kg (255 lb) 12/01/2018 7:19 PM CDT Weight 175.3 cm (5' 9") 12/01/2018 7:19 PM CDT Height 37.66 12/01/2018 7:19 PM CDT Body Mass Index Plan of Treatment Health Maintenance Due Date Last Done Comments COLONOSCOPY SCREENING 2015 SHINGLES VACCINES (#1) 2015 INFLUENZA VACCINE 10/24/2018 Procedures Comments Procedure Name Priority Date/Time Associated Diagnosis CT ABDOMEN PELVIS W STAT 12/01/2018 CONTRAST 9:46 PM CDT URINALYSIS SCREEN AND STAT 12/01/2018 MICROSCOPY, WITH REFLEX 9:30 PM CDT TO CULTURE ESTIMATED GFR STAT 12/01/2018 7:54 PM CDT LIPASE LEVEL STAT 12/01/2018 7:54 PM CDT COMPREHENSIVE METABOLIC STAT 12/01/2018 PANEL 7:54 PM CDT CBC WITH PLATELET AND STAT 12/01/2018 DIFFERENTIAL 7:54 PM CDT after 12/01/2017 Results * CT Abdomen Pelvis W Contrast (12/01/2018 9:46 PM CDT) Specimen Narrative Performed At EXAMINATION:CT ABDOMEN PELVIS W CONTRAST [facility] CLINICAL HISTORY: r o bowel obstruction TECHNIQUE: Multiple axial images of the abdomen and pelvis were obtained following intravenous administration of iodinated contrast. Sagittal and coronal computerized reformatted images were also obtained. Approximately 100 cc of Omnipaque [address] scan performed using radiation dose reduction techniques. Technical factors are evaluated and adjusted to ensure appropriate moderation of exposure. Automated dose management technology is applied to adjust the radiation dose to minimize expose whileachieving a diagnostic quality image. COMPARISON:None. FINDINGS: Lung bases: The lung bases are unremarkable. Scatter atheroscleroticcoronary arteries calcifications are noted. Liver: The liver is normal in attenuation, contour and size. Approximately 2.5 cm right hepatitic cyst is seen. No enhancing mass is seen. There is no intrahepatic biliary dilatation.. . Gallbladder: Unremarkable. Pancreas: The pancreas is normal in appearance. No inflammatory process. The pancreatic duct is within normal limits. Spleen: An approximately 3.3 cm nonspecific cyst is seen within the posterior aspect of the spleen. The spleen is otherwise unremarkable.. Kidneys and ureters: The kidneys function symmetrically. There is no enhancing renal lesion. No renal stone is seen. There is no evidence of hydronephrosis.. The ureters are normal in course and caliber. Adrenal glands: Unremarkable. GI tract: Postsurgical change of Luna-en-Y gastric bypass is seen. There is mural thickening and surrounding fat stranding is seen at the end of the biliopancreatic limb anastomosis, series 601B images #[id number] and series 2 images #[id number]. Findings suggestive of infection. The remainder small bowel demonstrates no evidence of other wall thickening or abnormal dilatation.. The colon is unremarkable. No bowel wall thickening is identified. There is no acute inflammatory process. The appendix is surgically absent. Fluid: None. Pelvis: Bladder: The urinary bladder is poorly distended but otherwise unremarkable. Genitalia: Limited evaluation of the uterus and ovaries is unremarkable. Fluid: None. Bones: Unremarkable. Retroperitoneum/intraperitoneum: No retroperitoneal or mesenteric pathologic lymphadenopathy is seen. No free air is seen. Vasculature: Scattered atherosclerotic calcifications of the abdominal aorta and iliac arteries are noted. No evidence of aortic aneurysm or dissection.The mesenteric vessels and visceral vessel are patent. Abdominal and pelvic wall: Unremarkable. IMPRESSION: Finding suggesting of infection at the biliopancreatic limb anastomosis as described in the body of the report. Recommend clinical correlation and appropriate follow-up. No CT evidence of colitis or small bowel obstruction. Nonspecific approximately 3.3 cm splenic cyst noted. Unremarkable exam otherwise. [id number] Procedure Note Interface, Radiology Results Incoming - 12/01/2018 10:14 PM CDT EXAMINATION: CT ABDOMEN PELVIS W CONTRAST CLINICAL HISTORY: r o bowel obstruction TECHNIQUE: Multiple axial images of the abdomen and pelvis were obtained following intravenous administration of iodinated contrast. Sagittal and coronal computerized reformatted images were also obtained. Approximately 100 cc of Omnipaque [address] scan performed using radiation dose reduction techniques. Technical factors are evaluated and adjusted to ensure appropriate moderation of exposure. Automated dose management technology is applied to adjust the radiation dose to minimize expose while achieving a diagnostic quality image. COMPARISON: None. FINDINGS: Lung bases: The lung bases are unremarkable. Scatter atherosclerotic coronary arteries calcifications are noted. Liver: The liver is normal in attenuation, contour and size. Approximately 2.5 cm right hepatitic cyst is seen. No enhancing mass is seen. There is no intrahepatic biliary dilatation.. . Gallbladder: Unremarkable. Pancreas: The pancreas is normal in appearance. No inflammatory process. The pancreatic duct is within normal limits. Spleen: An approximately 3.3 cm nonspecific cyst is seen within the posterior aspect of the spleen. The spleen is otherwise unremarkable.. Kidneys and ureters: The kidneys function symmetrically. There is no enhancing renal lesion. No renal stone is seen. There is no evidence of hydronephrosis.. The ureters are normal in course and caliber. Adrenal glands: Unremarkable. GI tract: Postsurgical change of Luna-en-Y gastric bypass is seen. There is mural thickening and surrounding fat stranding is seen at the end of the biliopancreatic limb anastomosis, series 601B images #[id number] and series 2 images #[id number]. Findings suggestive of infection. The remainder small bowel demonstrates no evidence of other wall thickening or abnormal dilatation.. The colon is unremarkable. No bowel wall thickening is identified. There is no acute inflammatory process. The appendix is surgically absent. Fluid: None. Pelvis: Bladder: The urinary bladder is poorly distended but otherwise unremarkable. Genitalia: Limited evaluation of the uterus and ovaries is unremarkable. Fluid: None. Bones: Unremarkable. Retroperitoneum/intraperitoneum: No retroperitoneal or mesenteric pathologic lymphadenopathy is seen. No free air is seen. Vasculature: Scattered atherosclerotic calcifications of the abdominal aorta and iliac arteries are noted. No evidence of aortic aneurysm or dissection. The mesenteric vessels and visceral vessel are patent. Abdominal and pelvic wall: Unremarkable. IMPRESSION: Finding suggesting of infection at the biliopancreatic limb anastomosis as described in the body of the report. Recommend clinical correlation and appropriate follow-up. No CT evidence of colitis or small bowel obstruction. Nonspecific approximately 3.3 cm splenic cyst noted. Unremarkable exam otherwise. [id number] Performing Organization Address City/State/Zipcode Phone Number [facility] [address] [place] [address] * Urinalysis screen and microscopy, with reflex to culture (12/01/2018 9:30 PM CDT) Specimen site Clean catch [facility] Color, UA Pamella [facility] Appearance, UA Clear [facility] Specific 1.025 1.001 - 1.035 [place] gravity, [facility] pH, UA 5.0 5.0 - 8.5 [facility] Protein, UA 2+ (A) Negative [facility] Glucose, UA Negative Negative [facility] Ketones, UA Trace (A) Negative [facility] Bilirubin, UA 1+ (A)Comment: Confirmation of Negative [place] results no longer performed [facility] due to unavailability of [facility] Blood, UA Negative Negative [facility] Nitrite, UA Negative Negative [facility] Urobilinogen, 4.0 (A) <2.0 [facility] Leukocyte Negative Negative [place] esterase, [facility] Epithelial Few /HPF [place] cells, [facility] WBC, UA 1 0 - 1 /HPF [facility] RBC, UA 2 0 - 5 /HPF [facility] Bacteria, UA Trace None seen [facility] Yeast, UA None seen [facility] Yeast with None seen [place] pseudohyphae, [facility] Hyaline casts, 43 /LPF [facility] Specimen Urine Performing Organization Address City/State/Zipcode Phone Number [facility] OF [address] [place] [address] PATHOLOGY AND GENOMIC MEDICINE [facility] [address] [place] [address] HOSPITAL * Estimated GFR (12/01/2018 7:54 PM CDT) [facility] Estimated GFR 76 mL/min/1.73 m2 [place] Comment: [facility] G1 >=90 Normal or high G2 60-89Mildly decreased [id number] Mildly to moderately decreased O1r42-20 Moderately to severely decreased G4 15-29Severely decreased G5 <15Kidney failure The eGFR was calculated using the Chronic Kidney Disease Epidemiology Collaboration (CKD-EPI) equation. Interpretation is based on recommendations of the National Kidney Foundation-Kidney Disease Outcomes Quality Initiative (NKF-KDOQI) published in 2014. Specimen Plasma specimen Performing Organization Address City/State/Zipcode Phone Number [facility] OF [address] [place] [address] PATHOLOGY AND GENOMIC MEDICINE [facility] [address] [place] [address] HOSPITAL * CBC with platelet and differential (12/01/2018 7:54 PM CDT) WBC 7.5 4.2 - 11.0 k/uL [facility] RBC 4.29 4.04 - 5.86 m/uL [facility] HGB 11.0 (L) 13.0 - 17.3 g/dL [facility] HCT 35.9 34.0 - 45.0 % [facility] MCV 83.7 80.0 - 98.0 fL [facility] MCH 25.6 (L) 27.0 - 34.0 pg [facility] MCHC 30.6 (L) 31.5 - 36.5 g/dL [facility] RDW - SD 46.5 37.0 - 51.0 fL [facility] MPV 10.2 7.4 - 10.4 fL [facility] Platelet count 249 150 - 400 k/uL [facility] Nucleated RBC 0.00 /100 WBC [facility] Neutrophils 68.3 (H) 36.0 - 66.0 % [facility] Lymphocytes 20.6 (L) 24.0 - 44.0 % [facility] Monocytes 7.8 (H) 0.0 - 6.0 % [facility] Eosinophils 2.7 0.0 - 6.0 % [facility] Basophils 0.3 0.0 - 1.2 % [facility] Immature 0.3 0.0 - 1.0 % [place] granulocytes [facility] Specimen Blood Performing Organization Address City/[facility] Phone Number [facility] DE[facility] OF [address] [phone] PATHOLOGY AND GENOMIC MEDICINE [facility] [address] * Lipase level (12/01/2018 7:54 PM CDT) Lipase 17 13 - 60 U/L [facility] Specimen Plasma specimen Performing Organization Address City/[facility] Phone Number [facility] OF [address] [place] [address] PATHOLOGY AND GENOMIC MEDICINE [facility] [address] [place] [address] * Comprehensive metabolic panel (12/01/2018 7:54 PM CDT) Pathologist [facility] Sodium 139 135 - 150 mEq/L [facility] Potassium 4.2 3.5 - 5.0 mEq/L [facility] Chloride 100 98 - 112 mEq/L [facility] CO2 27 24 - 31 mmol/L [facility] Anion gap 12@ANIO 7 - 15 mEq/L [facility] BUN 13 7 - 18 mg/dL [facility] Creatinine 1.10 0.70 - 1.20 mg/dL [facility] Glucose 128 (H) 65 - 100 mg/dL [facility] Calcium 9.6 8.3 - 10.2 mg/dL [facility] Protein 8.4 (H) 6.3 - 8.3 g/dL [facility] Albumin 3.6 3.5 - 5.0 g/dL [facility] A/G ratio 0.8 0.7 - 3.8 [facility] Alkaline 137 (H) 0 - 129 U/L [place] phosphatase [facility] AST 16 10 - 50 U/L [facility] ALT 13 5 - 50 U/L [facility] Total bilirubin 0.7 0.2 - 1.2 mg/dL [facility] Specimen Plasma specimen Performing Organization Address City/State/Zipcode Phone Number [facility] DEPARTMENT OF [address] [place] [address] PATHOLOGY AND GENOMIC MEDICINE [facility] [place] [address] [place] [address] HOSPITAL after 12/01/2017 Insurance Type Payer Benefit Subscriber ID Effective Phone Address Plan / Dates Group Exchange BCBS EXCHANGE BLUE xxxxxxxxxxxx 2018-P ADVANTAGE resent HMO EXCH Advance Directives For more information, please contact: [phone] 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
--- NOTE | 2018-12-02 04:23 | NUR ---
PAGE DR KERN FOR ORDERS FOR HIS PT THAT WAS TRANSFER FROM [facility] IN [place]. AWAITING CALL BACK. WILL CONTINUE TO MONITOR.
--- NOTE | 2018-12-02 04:26 | NUR ---
PT ARRIVED ON THE FLOOR AT 0341 VIA STRETCHER BY AMBULANCE SERVICE WITH AT BEDSIDE. PT IS A TRANSFER FROM [facility] IN [place]. PT IS A&OX3. RESPIRATION IS EVEN AND UNLABORED, NO DISTRESS NOTED. BED IN THE LOWEST POSITION, LOCKED, AND CALL LIGHT WITHIN REACH. ADMISSION AND HEAD TO TOE ASSESSMENT COMPLETE. WILL CONTINUE TO MONITOR.
--- NOTE | 2018-12-02 04:32 | NUR ---
PER DR KERN MAKE PT NPO, MORPHINE 4MG IV Q4H PRN, ZOFRAN 4MG IV Q4H PRN, AND HE WILL SEE PT IN THE MORNING. WILL CONTINUE TO MONITOR.
[2018-12-02] MEDS ORDERED: MORPHINE SULFATE 2 MG/ML SYR 1ML IV PRN ×2 (04:45→05:15)
[2018-12-02] MEDS ORDERED: ONDANSETRON HCL INJ 2MG/ML 2ML 2 MG/ML VIAL IV PRN ×2 (04:45→05:15)
--- NOTE | 2018-12-02 04:49 | NUR ---
DR KERN ALSO WANTED NS AT 125ML/HR.
[2018-12-02] MEDS ORDERED: HYDRALAZINE HCL 20 MG/ML VIAL IV PRN (05:00)
--- NOTE | 2018-12-02 05:00 | NUR ---
[address] BAILEY VELASQUEZ OF THE MEDICAL CONSULT. WILL CONTINUE TO MONITOR.
[2018-12-02] MEDS ORDERED: ACETAMINOPHEN 325 MG TAB PO PRN (05:30)
[2018-12-02] MEDS: MEROPENEM 500MG/ NS 50ML 500 MG in MEROPENEM 500MG/ NS 50ML 50 ML IV SCH ×3 (05:34→21:31)
[2018-12-02] MEDS ORDERED: PIPER-TAZ 3.375 GM 50 ML IV SCH (06:00)
[2018-12-02 06:24] LABS: BASOPHILS % 0.2 % (0.0-1.0); EOSINOPHILS # (AUTO) 0.2 (0.0-0.4); EOSINOPHILS % 3.2 % (0.0-6.0); HEMATOCRIT 30.1 % (38.2-49.6); LYMPHOCYTES # (AUTO) 1.7 (1.0-3.2); LYMPHOCYTES % 30.6 % (18.0-39.1); MEAN CORPUSCULAR HEMOGLOBIN 25.6 pg (28-32); MEAN CORPUSCULAR HGB CONC 29.9 g/dL (31-35); MEAN CORPUSCULAR VOLUME 85.8 fL (81-99); MONOCYTES # (AUTO) 0.5 (0.2-0.8); MONOCYTES % 9.2 % (4.4-11.3); NEUTROPHILS # (AUTO) 3.2 (2.1-6.9); NEUTROPHILS % 56.6 % (38.7-80.0); PLATELET COUNT 189 x10e3/uL (140-360); RED BLOOD COUNT 3.51 x10e6/uL (4.3-5.7); RED CELL DISTRIBUTION WIDTH 15.4 % (11.7-14.4)
[2018-12-02 06:44] LABS: ANION GAP 13.8 mmol/L (8-16); BLOOD UREA NITROGEN 14 mg/dL (7-26); BUN/CREATININE RATIO 17 (6-25); CALCIUM 9.4 mg/dL (8.4-10.2); CARBON DIOXIDE 25 mmol/L (22-29); CHLORIDE 104 mmol/L (98-107); CREATININE, SERUM 0.83 mg/dL (0.72-1.25); EST GLOMERULAR FILTRATION RATE > 60 ML/MIN (60-); GLUCOSE 93 mg/dL (74-118); POTASSIUM 3.8 mmol/L (3.5-5.1); SODIUM 139 mmol/L (136-145)
[2018-12-02] MEDS: TAMSULOSIN HCL 0.4 MG CAP PO SCH (09:46)
[2018-12-02] MEDS: FUROSEMIDE 40 MG TAB PO SCH (09:46)
[2018-12-02] MEDS: POTASSIUM CHLORIDE 20 MEQ TAB CR PO SCH (09:46)
[2018-12-02] MEDS: LISINOPRIL 2.5 MG TAB PO SCH (09:46)
[2018-12-02] MEDS: SUCRALFATE 1 GM/10 ML SUSP PO SCH ×4 (09:46→21:30)
[2018-12-02] MEDS: AMIODARONE HCL 200 MG TAB PO SCH ×2 (09:46→16:27)
--- NOTE | 2018-12-02 14:11 | NUR ---
Nutrition Intervention Note RD Recommendation(s) for Physician: - As feasible, ADAT to goal of NCS, GI Soft, 6 small meals per day - Recommend Ensure Clear BID when diet advanced to CL diet - If unable to advance diet, consult Nutrition for recommendations Plan of Care: RD following, monitoring for tolerance and adequacy Nutrition reason for involvement: Nutrition Risk Trigger- [facility] RD Assessment 12/02: 53 YOM admitted for infected surgical site with recent hospitalization for abdominal abscess. Pt reports he was eating well up until this past week and that he has been in significant pain when resulted in no appetite. Pt denies any GI distress. Noted 20# wt loss since last hospitalization, pt states he "lost most of it while I was in the hospital" and his states he has been maintaining his wt since he's been home the past few weeks. Pt and with no questions at time of visit. Pt discussed during am rounds. Principal Problems/Diagnoses: infected surgical site PMH: jejunostomy, gastric bypass, SBO, afib, morbid obesity GI: LBM 11/29 per pt Skin: + surgical site Labs: (12/02) Na 139, K 3.8, BUN 14, Cr 0.83, Gluc 93 Meds: protonix, kdur, lasix, zofran, abx Ht: 69 in Wt: 254.5 lb BMI: 37.6 IBW: 72.7 kg Malnutrition Evaluation (12/02/18) The patient does not meet criteria for a specified degree of malnutrition at this time. Will re-evaluate at follow-up as appropriate. Energy intake: <50% of estimated energy requirements for >5 days Weight loss: >5% in 1 month (Acute) >7.5% in 3 months (Acute) Fat loss: None Muscle loss: None, shoulder round Supporting Evidence: Fluid accumulation: none Functional Status: no changes Nutrition Prescription (Diet Order): NPO Estimated Nutritional Needs: 2039-1230 calories/day (22-25 kcal/kg IBW) 109-182 g protein/day (1.5-2.5 g pro/kg IBW) Diet Adequacy: Not meeting calorie needs, Not meeting protein needs Diet Education Needs Assessment: Diet education not indicated, patient on temporary/transition diet. Nutrition Care Level: Mod Nutrition Diagnosis: Inadequate energy and protein intake due to pain related to ongoing medical conditions and hx of significant GI surgeries. Goal: Patient will meet 75-100% of estimated needs by follow up Progress: N/A Interventions: fiber, CHO modified diet, Commercial beverage, Recommended Modifications, Collaboration with other providers Monitoring/Evaluation: Total energy intake, Total protein intake, Modified diet, Liquid supplement, Weight change Signed: Gala Zurita RD, LD, [facility]
--- NOTE | 2018-12-02 18:45 | NUR ---
Received report from day RN. The patient is laying on the bed, not in distress. The patient reported pain in the abdomen area and requested pain medication. Bed height low, side rails up x2, call light within reach, and wheels lock.
--- NOTE | 2018-12-02 19:04 | Consultation ---
DATE OF CONSULTATION: 12/02/2018 CHIEF COMPLAINT: Abdominal pain and nausea. HISTORY OF PRESENT ILLNESS: This patient is a 53-year-old male known to me from prior hospitalization and surgery. The patient had revision of gastric bypass due to recurrent intussusception. He was doing well until the last 1 week when he began to experience dysphagia with nausea resulting in eating softer food. He denies vomiting, but admits to heaving and decreased oral intake from the discomfort. The patient has no fevers or chills. He denied diarrhea. PAST MEDICAL HISTORY: Significant for history of atrial fibrillation, morbid obesity, hypertension. PAST SURGICAL HISTORY: Positive for gastric bypass surgery, revision gastric bypass surgery recently. SOCIAL HABITS: He does not smoke or drink. ALLERGIES: HE HAS NO DRUG ALLERGIES. REVIEW OF SYSTEMS: No cough, chest pain, shortness of breath. PHYSICAL EXAMINATION: VITAL SIGNS: Stable, afebrile. GENERAL: The patient is awake, alert, in mild discomfort. HEENT: Sclerae anicteric. NECK: Supple. LUNGS: Clear. HEART: Regular rate and rhythm. ABDOMEN: Soft. There is a small wound opening in the midline approximately 5 mm with no drainage. ABDOMEN: Soft, but there is mild guarding in the epigastrium to palpation. LABORATORY DATA: White cell count is 5.6 with hemoglobin of 9. Creatinine of 0.8. CT scan done at outside facility showed inflammation at the jejunojejunostomy anastomosis or to the biliopancreatic jejunostomy anastomosis without obstruction. ASSESSMENT: Inflammatory change at the revision site of gastric bypass with no evidence of obstruction. PLAN: IV antibiotics and GI evaluation. We will the follow patient with you. MD LUIS MANUEL Goldberg/ANTONY /[id number]
[2018-12-02] MEDS: HYDROCODONE/APAP 5MG-325MG TAB PO PRN (19:15)
--- NOTE | 2018-12-02 19:20 | NUR ---
Report given to oncoming nurse. Resting in bed, side rails upx2, call light within reach. AAOX4 to time, person, place, situation. Respirations even and unlabored.
[2018-12-02] MEDS: METOPROLOL TARTRATE 25 MG TAB PO SCH (21:31)
[2018-12-03] VITALS (9 sets, daily range): BP systolic 84–151; BP diastolic 42–75
[2018-12-03] MEDS: SODIUM CHLORIDE 0.9% 1000ML 1,000 ML IV SCH ×3 (03:18→21:08)
[2018-12-03] MEDS: PANTOPRAZOLE SOD 40 MG TABEC PO SCH ×2 (05:27→08:51)
[2018-12-03] MEDS: MEROPENEM 500MG/ NS 50ML 500 MG in MEROPENEM 500MG/ NS 50ML 50 ML IV SCH ×3 (05:27→21:08)
[2018-12-03 05:48] LABS: BASOPHILS % 0.2 % (0.0-1.0); EOSINOPHILS # (AUTO) 0.2 (0.0-0.4); EOSINOPHILS % 3.8 % (0.0-6.0); HEMATOCRIT 30.2 % (38.2-49.6); HEMOGLOBIN 9.2 g/dL (14.0-18.0); LYMPHOCYTES # (AUTO) 1.5 (1.0-3.2); LYMPHOCYTES % 32.3 % (18.0-39.1); MEAN CORPUSCULAR HEMOGLOBIN 25.8 pg (28-32); MEAN CORPUSCULAR HGB CONC 30.5 g/dL (31-35); MEAN CORPUSCULAR VOLUME 84.8 fL (81-99); MONOCYTES # (AUTO) 0.4 (0.2-0.8); MONOCYTES % 7.8 % (4.4-11.3); NEUTROPHILS # (AUTO) 2.7 (2.1-6.9); NEUTROPHILS % 55.7 % (38.7-80.0); PLATELET COUNT 185 x10e3/uL (140-360); RED BLOOD COUNT 3.56 x10e6/uL (4.3-5.7); RED CELL DISTRIBUTION WIDTH 15.3 % (11.7-14.4)
[2018-12-03 06:33] LABS: ANION GAP 13.2 mmol/L (8-16); BLOOD UREA NITROGEN 10 mg/dL (7-26); BUN/CREATININE RATIO 13 (6-25); CALCIUM 9.2 mg/dL (8.4-10.2); CARBON DIOXIDE 28 mmol/L (22-29); CHLORIDE 103 mmol/L (98-107); EST GLOMERULAR FILTRATION RATE > 60 ML/MIN (60-); GLUCOSE 93 mg/dL (74-118); POTASSIUM 4.2 mmol/L (3.5-5.1); SODIUM 140 mmol/L (136-145)
[2018-12-03] MEDS: HYDROCODONE/APAP 5MG-325MG TAB PO PRN ×2 (06:56→16:25)
[2018-12-03] MEDS: SUCRALFATE 1 GM/10 ML SUSP PO SCH ×4 (08:51→21:08)
[2018-12-03] MEDS: TAMSULOSIN HCL 0.4 MG CAP PO SCH (08:51)
[2018-12-03] MEDS: POTASSIUM CHLORIDE 20 MEQ TAB CR PO SCH (08:51)
[2018-12-03] MEDS: FUROSEMIDE 40 MG TAB PO SCH (08:51)
[2018-12-03] MEDS: AMIODARONE HCL 200 MG TAB PO SCH ×2 (09:00→16:19)
[2018-12-03] MEDS: LISINOPRIL 2.5 MG TAB PO SCH (09:00)
--- NOTE | 2018-12-03 09:11 | NUR ---
Prince Jefferson LANGSTON aware of BP 98/ P47. See orders
--- NOTE | 2018-12-03 13:30 | NUR ---
Visit made by the Spiritual Care Department Pastoral Visitor, Poppy Swann. Pt was unavailable at time of visit. ERASMO Khanna Spiritual Care Department O: [phone] Pager: [phone] ([phone] number calling from)
--- NOTE | 2018-12-03 19:10 | NUR ---
Report given to oncoming nurse of patient's status. Resting in bed, side rails upx2, call light within reach. No s/s of acute distress noted.
--- NOTE | 2018-12-03 19:12 | NUR ---
WALKING ROUNDS PERFORMED, RECEIVED PT LAYING SEMI FOWLERS IN BED, AAOX3, RR EVEN AND NON-LABORED, ON ROOM AIR. NO S/SX OF DISTRESS NOTED. LEFT PT LAYING SEMI FOWLERS IN BED, BED IN LOW LOCKED POSITION, SIDE RAILS UPX2, CALL LIGHT AND PHONE WITHIN REACH.
[2018-12-03] MEDS: METOPROLOL TARTRATE 25 MG TAB PO SCH (21:08)
[2018-12-03] MEDS: MELATONIN 5 MG TABLET PO PRN (21:12)
--- NOTE | 2018-12-03 23:39 | NUR ---
SPOKE WITH FLO HESTER NP CONCERNING PT LOW BP. NEW ORDERS RECEIVED.
[2018-12-04] VITALS (8 sets, daily range): BP systolic 82–119; BP diastolic 48–61
[2018-12-04 05:38] LABS: BASOPHILS % 0.4 % (0.0-1.0); EOSINOPHILS # (AUTO) 0.2 (0.0-0.4); EOSINOPHILS % 4.6 % (0.0-6.0); HEMATOCRIT 28.5 % (38.2-49.6); HEMOGLOBIN 8.8 g/dL (14.0-18.0); LYMPHOCYTES # (AUTO) 1.5 (1.0-3.2); LYMPHOCYTES % 33.6 % (18.0-39.1); MEAN CORPUSCULAR HEMOGLOBIN 25.8 pg (28-32); MEAN CORPUSCULAR HGB CONC 30.9 g/dL (31-35); MEAN CORPUSCULAR VOLUME 83.6 fL (81-99); MONOCYTES # (AUTO) 0.4 (0.2-0.8); MONOCYTES % 8.1 % (4.4-11.3); NEUTROPHILS # (AUTO) 2.4 (2.1-6.9); NEUTROPHILS % 52.9 % (38.7-80.0); PLATELET COUNT 196 x10e3/uL (140-360); RED BLOOD COUNT 3.41 x10e6/uL (4.3-5.7)
[2018-12-04] MEDS: SODIUM CHLORIDE 0.9% 1000ML 1,000 ML IV SCH ×3 (05:53→16:50)
[2018-12-04] MEDS: MEROPENEM 500MG/ NS 50ML 500 MG in MEROPENEM 500MG/ NS 50ML 50 ML IV SCH (05:54)
[2018-12-04 06:03] LABS: ANION GAP 12.7 mmol/L (8-16); BLOOD UREA NITROGEN 9 mg/dL (7-26); BUN/CREATININE RATIO 11 (6-25); CALCIUM 8.7 mg/dL (8.4-10.2); CARBON DIOXIDE 26 mmol/L (22-29); CHLORIDE 104 mmol/L (98-107); CREATININE, SERUM 0.79 mg/dL (0.72-1.25); EST GLOMERULAR FILTRATION RATE > 60 ML/MIN (60-); GLUCOSE 87 mg/dL (74-118); MAGNESIUM 1.8 MG/DL (1.3-2.1); PHOSPHORUS 3.9 MG/DL (2.3-4.7); POTASSIUM 3.7 mmol/L (3.5-5.1); SODIUM 139 mmol/L (136-145)
[2018-12-04 06:33] LABS: EOSINOPHILS % (MANUAL) 4 % (0-7); LYMPHOCYTES % (MANUAL) 35 % (19-48); MONOCYTES % (MANUAL) 9 % (3.4-9.0); NEUTROPHILS % (MANUAL) 52 % (40-74); PLATELET ESTIMATE SLIGHTLY DECREASED
[2018-12-04 06:34] LABS: PLATELET MORPHOLOGY COMMENT FEW LARGE; RBC MORPHOLOGY COMMENT NORMAL
[2018-12-04] MEDS: SUCRALFATE 1 GM/10 ML SUSP PO SCH ×4 (07:45→20:20)
[2018-12-04] MEDS: POTASSIUM CHLORIDE 20 MEQ TAB CR PO SCH (07:45)
[2018-12-04] MEDS: AMIODARONE HCL 200 MG TAB PO SCH ×2 (07:45→16:17)
[2018-12-04] MEDS: PANTOPRAZOLE SOD 40 MG TABEC PO SCH (07:46)
[2018-12-04] MEDS ORDERED: LISINOPRIL 2.5 MG TAB PO SCH (09:00)
[2018-12-04] MEDS ORDERED: ONDANSETRON HCL 4 MG ORAL DISINTEGRATING TAB PO PRN (12:30)
[2018-12-04] MEDS: VANCOMYCIN 1GM/NS 250 ML 250 ML IV SCH (13:55)
[2018-12-04] MEDS: HYDROCODONE/APAP 5MG-325MG TAB PO PRN (15:18)
--- NOTE | 2018-12-04 17:33 | NUR ---
Patient arrived to unit. In stable condition, no signs of distress at this time. Will continue to monitor.
--- NOTE | 2018-12-04 17:39 | NUR ---
REPORT GIVEN TO CONCHITA BANKS TRANSFERRED TO ROOM 288 DUE TO CONTACT ISOLATION WITH MRSA
--- NOTE | 2018-12-04 17:40 | NUR ---
IV line infiltrated when tried to connect patient to fluids. New IV started to Left hand 20G.
--- NOTE | 2018-12-04 19:11 | NUR ---
Bedside report given to night nurse. Patient in stable condition. No c/o of pain or signs of distress at this time. All safety measures in place.
[2018-12-04] MEDS: MELATONIN 5 MG TABLET PO PRN (21:57)
[2018-12-05] VITALS (7 sets, daily range): BP systolic 102–128; BP diastolic 54–65
[2018-12-05] MEDS: SODIUM CHLORIDE 0.9% 1000ML 1,000 ML IV SCH ×2 (02:18→17:05)
--- NOTE | 2018-12-05 07:25 | NUR ---
Received bedside report from night nurse. Morning rounding completed. Patient resting in bed, no c/o of pain or signs of distress at this time. All safety measures in place. Family at bedside. Will continue to monitor.
[2018-12-05] MEDS: SUCRALFATE 1 GM/10 ML SUSP PO SCH ×4 (08:30→20:32)
[2018-12-05] MEDS: AMIODARONE HCL 200 MG TAB PO SCH ×2 (08:38→16:31)
[2018-12-05] MEDS: FUROSEMIDE 40 MG TAB PO SCH (08:39)
[2018-12-05] MEDS: TAMSULOSIN HCL 0.4 MG CAP PO SCH (08:39)
[2018-12-05] MEDS: POTASSIUM CHLORIDE 20 MEQ TAB CR PO SCH (08:39)
[2018-12-05] MEDS: PANTOPRAZOLE SOD 40 MG TABEC PO SCH (08:39)
[2018-12-05] MEDS ORDERED: LISINOPRIL 2.5 MG TAB PO SCH (09:00)
[2018-12-05] MEDS: VANCOMYCIN 1GM/NS 250 ML 250 ML IV SCH (12:03)
[2018-12-05] MEDS ORDERED: BACTRIM DS TAB1 EACH PO (12:14)
[2018-12-05] MEDS ORDERED: RIFAMPIN300 MG PO (12:14)
[2018-12-05] MEDS: HYDROCODONE/APAP 5MG-325MG TAB PO PRN (17:05)
--- NOTE | 2018-12-05 19:00 | NUR ---
patient received awake, alert, lying quietly in bed. no c/o pain noted. patient on telemetry #17 patient a fib at this time per environmental monitoring specialist. pm assessment complete. patient instructed to call for assistance when needed.
--- NOTE | 2018-12-05 19:09 | NUR ---
Bedside report given to night nurse. All safety measures in place.
--- NOTE | 2018-12-05 19:18 | Consultation ---
DATE OF CONSULTATION: Cardiology Consultation CHIEF COMPLAINT: The patient is a 53-year-old with a postoperative wound infection. HISTORY OF PRESENT ILLNESS: The patient is a 53-year-old, admitted for a postoperative wound infection. The patient has been receiving IV antibiotics. The patient has a history of paroxysmal atrial fibrillation in the past and was noted to have some brief episodes of paroxysmal atrial fibrillation on telemetry. The patient has had no chest pain, no shortness of breath. No syncope. No dizziness. PAST MEDICAL HISTORY: 1. Significant for one recent surgery for a gastric bypass. 2. Postoperative wound infection. 3. History of paroxysmal atrial fibrillation. SOCIAL HISTORY: The patient does not drink and does not smoke. FAMILY HISTORY: There is no known family history of coronary artery disease. PHYSICAL EXAMINATION: GENERAL: The patient is a heavy male, in no obvious distress. VITAL SIGNS: Include a temperature of 97, pulse of 80, and blood pressure of 110/65. HEAD, EARS, EYES, NOSE, AND THROAT: The patient's cranium was normocephalic and atraumatic. Extraocular muscles were intact. Sclerae were anicteric. Pupils were equal, round, and reactive to light. There is no pallor or cyanosis of the oral mucosa. NECK: Supple. No jugular venous distention. CHEST: Demonstrated rhonchi bilaterally. CARDIAC: Demonstrated a normal S1 and S2 without any murmurs, rubs, or gallops. ABDOMEN: The patient did have a soreness in his abdomen. EXTREMITIES: 1+ edema bilaterally. NEUROLOGIC: The patient was alert and oriented x3. Cranial nerves were intact. Motor strength was intact in all limbs. IMAGING: The patient's EKG demonstrated sinus bradycardia with some nonspecific ST and T-wave changes. IMPRESSION: The patient is a 53-year-old with a postoperative wound infection and some paroxysmal atrial fibrillation. RECOMMENDATIONS: 1. The patient is now back in normal sinus rhythm. 2. I feel that the patient's home medications including amiodarone and Eliquis, that should be continued. 3. I feel the patient should follow up with his regular visitor services associate, Dr. Vicente in 1 week. MD JOSE MARTIN Verduzco/ANTONY /[id number] cc: Jeb Oliva MD
--- NOTE | 2018-12-05 19:30 | NUR ---
notified re: a fib with heart rate 130-150. new medication orders noted.
--- NOTE | 2018-12-05 20:00 | NUR ---
patient back to NSR at this time. ordered cardizem not given at this time.
[2018-12-05] MEDS ORDERED: DILTIAZEM HCL 5 MG/ML 5 ML VIAL IV ONE (20:15)
[2018-12-05] MEDS: MELATONIN 5 MG TABLET PO PRN (22:56)
[2018-12-06] VITALS: BP 118/59
[2018-12-06] MEDS: HYDROCODONE/APAP 5MG-325MG TAB PO PRN (01:00)
[2018-12-06 02:59] LABS: BASOPHILS % 0.4 % (0.0-1.0); EOSINOPHILS # (AUTO) 0.3 (0.0-0.4); EOSINOPHILS % 5.6 % (0.0-6.0); HEMATOCRIT 30.3 % (38.2-49.6); HEMOGLOBIN 9.2 g/dL (14.0-18.0); LYMPHOCYTES # (AUTO) 1.6 (1.0-3.2); LYMPHOCYTES % 34.3 % (18.0-39.1); MEAN CORPUSCULAR HEMOGLOBIN 25.6 pg (28-32); MEAN CORPUSCULAR HGB CONC 30.4 g/dL (31-35); MEAN CORPUSCULAR VOLUME 84.4 fL (81-99); MONOCYTES # (AUTO) 0.3 (0.2-0.8); MONOCYTES % 7.1 % (4.4-11.3); NEUTROPHILS # (AUTO) 2.4 (2.1-6.9); NEUTROPHILS % 52.4 % (38.7-80.0); PLATELET COUNT 225 x10e3/uL (140-360); RED BLOOD COUNT 3.59 x10e6/uL (4.3-5.7)
[2018-12-06 03:55] LABS: SODIUM 142 mmol/L (136-145)
[2018-12-06 03:56] LABS: ANION GAP 13.7 mmol/L (8-16); BLOOD UREA NITROGEN 10 mg/dL (7-26); BUN/CREATININE RATIO 12 (6-25); CALCIUM 8.6 mg/dL (8.4-10.2); CARBON DIOXIDE 23 mmol/L (22-29); CHLORIDE 109 mmol/L (98-107); CREATININE, SERUM 0.86 mg/dL (0.72-1.25); EST GLOMERULAR FILTRATION RATE > 60 ML/MIN (60-); GLUCOSE 115 mg/dL (74-118); POTASSIUM 3.7 mmol/L (3.5-5.1)
[2018-12-06 04:00] VITALS: BP 114/55
[2018-12-06] MEDS: SODIUM CHLORIDE 0.9% 1000ML 1,000 ML IV SCH ×2 (04:30→05:00)
[2018-12-06] MEDS: SUCRALFATE 1 GM/10 ML SUSP PO SCH ×2 (07:30→12:00)
--- NOTE | 2018-12-06 07:35 | NUR ---
patient endorsed to next shift for continuity of care.
[2018-12-06 08:00] VITALS: BP 118/65
--- NOTE | 2018-12-06 08:00 | NUR ---
received pt in bed resting, at bedside.
[2018-12-06] MEDS: FUROSEMIDE 40 MG TAB PO SCH (09:00)
[2018-12-06] MEDS: TAMSULOSIN HCL 0.4 MG CAP PO SCH (09:00)
[2018-12-06] MEDS: PANTOPRAZOLE SOD 40 MG TABEC PO SCH (09:00)
[2018-12-06] MEDS: AMIODARONE HCL 200 MG TAB PO SCH (09:00)
[2018-12-06] MEDS: POTASSIUM CHLORIDE 20 MEQ TAB CR PO SCH (09:00)
--- NOTE | 2018-12-06 10:52 | NUR ---
PT DOWN FOR CT VIA WC.
--- NOTE | 2018-12-06 11:08 | NUR ---
PT BACK FROM CT.
[2018-12-06 12:00] VITALS: BP 126/65
--- NOTE | 2018-12-06 12:01 | Diagnostic Imaging Report ---
Exam: CT abdomen and pelvis Clinical history: Abdominal abscess Technique: Helical images of the abdomen and pelvis were obtained without contrast DOSE REDUCTION: The exams was performed according to the departmental dose-optimization program which includes automated exposure control, adjustment of the mA and/or kV according to patient size and/or use of iterative reconstruction technique. Findings: The lung bases are clear. There is no evidence of pleural effusion. The cardiac size is within normal limits. A 2.1 cm hypodense lesion is seen in the posterior segment of right hepatic lobe with Hounsfield unit of 3 likely represents a cyst. A hypodense lesion measuring 3.2 cm also noted in the spleen with Hounsfield unit of 12 which also likely represents a cyst. The pancreas, gallbladder, adrenal glands, and kidneys are unremarkable. The patient is status post gastric gastric bypass surgery with postoperative changes. There is no evidence of intra-abdominal abscess. The small and large bowels are normal in caliber. Moderate retained feces are seen in the ascending colon and rectum. The bladder, prostate, and seminal vesicles are unremarkable. There is no evidence of lymphadenopathy or free fluid. The aorta and IVC are normal in caliber. Anterior wedge deformity is noted in the L1 vertebral body most consistent with compression fracture, age indeterminant. Impression: 1. No CT evidence of intra-abdominal abscess. 2. Hypodense lesions in the liver and spleen likely represent cysts. 3. Status post gastric bypass surgery with postoperative changes. 4. Compression fracture of the L1 vertebra age indeterminant. Signed by: Dr. Jovan Webster MD on 12/06/2018 11:58 AM
--- NOTE | 2018-12-06 13:28 | NUR ---
Nutrition Follow-up Note RD Recommendation(s) for Physician: - Continue diet as ordered Plan of Care: RD following, monitoring for tolerance and adequacy Nutrition reason for involvement: Follow up RD Assessment 12/06: Visited pt in the room. Pt reported good tolerance with diet. No GI complains at all. Pt was eager to go home. No concern at this time. Will continue to monitor and follow. 12/02: 53 YOM admitted for infected surgical site with recent hospitalization for abdominal abscess. Pt reports he was eating well up until this past week and that he has been in significant pain when resulted in no appetite. Pt denies any GI distress. Noted 20# wt loss since last hospitalization, pt states he "lost most of it while I was in the hospital" and his states he has been maintaining his wt since he's been home the past few weeks. Pt and with no questions at time of visit. Pt discussed during am rounds. Principal Problems/Diagnoses: infected surgical site PMH: jejunostomy, gastric bypass, SBO, afib, morbid obesity GI: LBM 12/05, abdomen soft and non-tender Skin: + surgical site Labs: (12/06) reviewed (12/02) Na 139, K 3.8, BUN 14, Cr 0.83, Gluc 93 Meds: carafate Ht: 69 in Wt: 254.5 lb BMI: 37.6 IBW: 72.7 kg Malnutrition Evaluation (12/02/18) The patient does not meet criteria for a specified degree of malnutrition at this time. Will re-evaluate at follow-up as appropriate. Energy intake: <50% of estimated energy requirements for >5 days Weight loss: Unknown Fat loss: None Muscle loss: None, shoulder round Supporting Evidence: Fluid accumulation: none Functional Status: no changes Nutrition Prescription (Diet Order): GI soft Estimated Nutritional Needs: 1385-6129 calories/day (22-25 kcal/kg IBW) 109-182 g protein/day (1.5-2.5 g pro/kg IBW) Diet Adequacy: meeting calorie needs, meeting protein needs Diet Education Needs Assessment: Diet education not indicated. Nutrition Care Level: Low Nutrition Diagnosis: No nutrition diagnosis at this time. Goal: Patient will meet 75-100% of estimated needs by follow up Progress: Goal met Interventions: Fiber-modified diet Monitoring/Evaluation: Total energy intake, Total protein intake, Modified diet, Weight change Signed: Cristal Barahona, MS, RD, LD
[2018-12-06] MEDS ORDERED: LEVAQUIN500 MG PO (13:47)
--- NOTE | 2018-12-06 14:25 | NUR ---
DR. KERN TO SEE PT EARLIER AND DR. AIME FAY GAVE DC ORDERS AT 1342. IV REMOVED. DISCHARGE INSTRUCTION GIVEN ALONG WITH PRESCRIPTIONS. PT ACCOMPANIED OUT BY STAFF VIA WC.
== END 2018-12-06 14:49 | disposition home or self-care (01) | DRG 863 ==
LOC: MED/SURG 03:39 → MED/SURG3 12-04 17:33
PROVIDERS: ADMIT Internal Medicine; ATTEND Internal Medicine
DX: T81.41XA Infection following a procedure, superficial incisional surgical site, initial encounter (principal); I50.22 Chronic systolic (congestive) heart failure; I48.91 Unspecified atrial fibrillation; Z79.01 Long term (current) use of anticoagulants; I11.0 Hypertensive heart disease with heart failure; Z86.711 Personal history of pulmonary embolism; N40.0 Benign prostatic hyperplasia without lower urinary tract symptoms; I10 Essential (primary) hypertension; B95.62 Methicillin resistant Staphylococcus aureus infection as the cause of diseases classified elsewhere
CPT/HCPCS: 36415; 74176; 80048; 80202; 83735; 83880; 84100; 85025; 87071; 87186; 87205; 93005; J2270; J2405; J3370; J7030

== ENCOUNTER 2018-12-20 20:11 | Emergency (ER) | payer BC ==
[~2018-12-20] VITALS: Ht 175.3 cm; Wt 115.2 kg
[~2018-12-20 20:11] MED LIST changes: +BACTRIM DS TAB1 EACH PO; +RIFAMPIN300 MG PO
--- OUTSIDE RECORDS SUMMARY | 2018-12-20 20:14 | XMS REPORT | Clinical Summary ---
Author Author [facility] Organization [facility] Address Unknown Phone Unavailable Care Team Providers Care Professor Of Latin American Studies Name Role Phone Chai Tavares DO PCP [...] - 12/02/2018 N/A 12/01/2018 Intake Access after 12/19/2017 Social History Date Tobacco Use Types Packs/Day [...] METABOLIC STAT 12/01/2018 PANEL 7:54 PM CDT HC COMPLETE BLD COUNT STAT 12/01/2018 W/AUTO DIFF 7:54 PM CDT after 12/19/2017 Results * CT Abdomen Pelvis W Contrast [...] cm splenic cyst noted. Unremarkable exam otherwise. [id number] Procedure Note Hm Interface, Radiology Results Incoming - 12/01/2018 10:14 [...] cm splenic cyst noted. Unremarkable exam otherwise. [id number] Performing Organization Address City/State/Zipcode Phone Number [facility] [address] [place] [address] * Urinalysis screen and microscopy, with reflex to culture (12/01/2018 9:30 PM CDT) Specimen site Clean catch [facility] Color, UA Pamella [facility] Appearance, UA Clear [facility] Specific 1.025 1.001 - 1.035 [facility] gravity, [facility] pH, UA 5.0 5.0 - 8.5 [facility] Protein, UA 2+ (A) Negative [facility] Glucose, UA Negative Negative [facility] Ketones, UA Trace (A) Negative [facility] Bilirubin, UA 1+ (A)Comment: Confirmation of Negative [facility] results no longer performed [facility] due to unavailability of [facility] Blood, UA Negative Negative [facility] Nitrite, UA Negative Negative [facility] Urobilinogen, 4.0 (A) <2.0 [facility] Leukocyte Negative Negative [facility] esterase, [facility] Epithelial Few /HPF [facility] cells, [facility] WBC, UA 1 0 - 1 /HPF [facility] RBC, UA 2 0 - 5 /HPF [facility] Bacteria, UA Trace None seen [facility] Yeast, UA None seen [facility] Yeast with None seen [facility] pseudohyphae, [facility] Hyaline casts, 43 /LPF [facility] Specimen Urine Performing Organization Address City/State/Zipcode Phone Number [facility] DEPARTMENT OF [address] [place] [address] PATHOLOGY AND GENOMIC MEDICINE [facility] [address] [place] [address] HOSPITAL * Estimated GFR (12/01/2018 7:54 PM CDT) [facility] Estimated GFR 76 mL/min/1.73 m2 [facility] Comment: [facility] G1 >=90 Normal or high G2 60-89Mildly decreased [id number] Mildly to moderately decreased [id number] Moderately to severely decreased G4 15-29Severely decreased G5 <15Kidney failure The eGFR was calculated using the Chronic Kidney Disease Epidemiology Collaboration (CKD-EPI) equation. Interpretation is based on recommendations of the National Kidney Foundation-Kidney Disease Outcomes Quality Initiative (NKF-KDOQI) published in 2014. Specimen Plasma specimen Performing Organization Address City/State/Zipcode Phone Number [facility] [address] [place] [address] PATHOLOGY AND GENOMIC MEDICINE [facility] [address] [facility] [place] [address] HOSPITAL * CBC with platelet and differential (12/01/2018 7:54 PM CDT) WBC 7.5 4.2 - 11.0 k/uL [facility] RBC 4.29 4.04 - 5.86 m/uL [facility] HGB 11.0 (L) 13.0 - 17.3 g/dL [facility] HCT 35.9 34.0 - 45.0 % [facility] MCV 83.7 80.0 - 98.0 fL [facility] MCH 25.6 (L) 27.0 - 34.0 pg [facility] MCHC 30.6 (L) 31.5 - 36.5 g/dL [facility] RDW - SD 46.5 37.0 - 51.0 fL [facility] MPV 10.2 7.4 - 10.4 fL [facility] Platelet count 249 150 - 400 k/uL [facility] Nucleated RBC 0.00 /100 WBC [facility] Neutrophils 68.3 (H) 36.0 - 66.0 % [facility] Lymphocytes 20.6 (L) 24.0 - 44.0 % [facility] Monocytes 7.8 (H) 0.0 - 6.0 % [facility] Eosinophils 2.7 0.0 - 6.0 % [facility] Basophils 0.3 0.0 - 1.2 % [facility] Immature 0.3 0.0 - 1.0 % [facility] granulocytes [facility] Specimen Blood Performing Organization Address City/[facility]/Zipcode Phone Number [facility] DEPARTMENT OF [address] [phone] PATHOLOGY AND GENOMIC MEDICINE [facility] [address] [place] [address] * Lipase level (12/01/2018 7:54 PM CDT) Lipase 17 13 - 60 U/L [facility] Specimen Plasma specimen Performing Organization Address City/[facility] Phone Number [facility] DEPARTMENT OF [address] [place] [address] PATHOLOGY AND GENOMIC MEDICINE [address] * Comprehensive metabolic panel (12/01/2018 7:54 PM CDT) Sodium 139 135 - 150 mEq/L [facility] Potassium 4.2 3.5 - 5.0 mEq/L [facility] Chloride 100 98 - 112 mEq/L [facility] CO2 27 24 - 31 mmol/L [facility] Anion gap 12@ANIO 7 - 15 mEq/L [facility] BUN 13 7 - 18 mg/dL [facility] Creatinine 1.10 0.70 - 1.20 mg/dL [facility] Glucose 128 (H) 65 - 100 mg/dL [facility] Calcium 9.6 8.3 - 10.2 mg/dL [facility] Protein 8.4 (H) 6.3 - 8.3 g/dL [facility] Albumin 3.6 3.5 - 5.0 g/dL [facility] A/G ratio 0.8 0.7 - 3.8 [facility] Alkaline 137 (H) 0 - 129 U/L [facility] phosphatase [facility] AST 16 10 - 50 U/L [facility] ALT 13 5 - 50 U/L [facility] Total bilirubin 0.7 0.2 - 1.2 mg/dL [facility] Specimen Plasma specimen Performing Organization Address City/State/Zipcode Phone Number [facility] DEPARTMENT OF [address] [place] [address] PATHOLOGY AND GENOMIC MEDICINE [facility] [address] [place] [address] HOSPITAL after 12/19/2017 Insurance Type Payer Benefit Subscriber ID Effective Phone Address Plan / Dates Group Exchange BCBS EXCHANGE BLUE xxxxxxxxxxxx 2018-P ADVANTAGE resent HMO EXCH Advance Directives For more information, please contact: [phone] Patient Mattress Stuffer Explanation Type Date Recorded Advance Directives, 12/01/2018 9:36 PM Living Will and Medical Power of Heading Maker
[2018-12-20] MEDS ORDERED: CEFEPIME 1GM/NS 0.9% 50 ML 50 ML IV STA (21:17)
[2018-12-20] MEDS ORDERED: SODIUM CHLORIDE 0.9% 1000ML 1,000 ML IV STA (21:17)
[2018-12-20] MEDS ORDERED: ONDANSETRON HCL INJ 2MG/ML 2ML 2 MG/ML VIAL IV STA (21:17)
[2018-12-20] MEDS ORDERED: MORPHINE SULFATE INJ 4 MG/ML INJ 1ML IV STA (21:17)
[2018-12-20] MEDS ORDERED: ASPIRIN 81 MG CHEW TAB PO ONE (21:30)
[2018-12-20 21:35] LABS: BASOPHILS % 0.5 % (0.0-1.0); EOSINOPHILS # (AUTO) 0.2 (0.0-0.4); EOSINOPHILS % 2.5 % (0.0-6.0); HEMATOCRIT 33.2 % (38.2-49.6); HEMOGLOBIN 10.4 g/dL (14.0-18.0); LYMPHOCYTES # (AUTO) 2.1 (1.0-3.2); LYMPHOCYTES % 34.5 % (18.0-39.1); MEAN CORPUSCULAR HEMOGLOBIN 25.8 pg (28-32); MEAN CORPUSCULAR HGB CONC 31.3 g/dL (31-35); MEAN CORPUSCULAR VOLUME 82.4 fL (81-99); MONOCYTES # (AUTO) 0.4 (0.2-0.8); MONOCYTES % 7.1 % (4.4-11.3); NEUTROPHILS # (AUTO) 3.3 (2.1-6.9); NEUTROPHILS % 55.2 % (38.7-80.0); PLATELET COUNT 314 x10e3/uL (140-360); RED BLOOD COUNT 4.03 x10e6/uL (4.3-5.7); RED CELL DISTRIBUTION WIDTH 14.8 % (11.7-14.4)
[2018-12-20 21:38] LABS: BILIRUBIN,URINE NEGATIVE (NEGATIVE); CLARITY,URINE SL CLOUDY (CLEAR); COLOR,URINE YELLOW (YELLOW); KETONES,URINE NEGATIVE (NEGATIVE); LEUKOCYTE ESTERASE ,URINE NEGATIVE (NEGATIVE); NITRITE,URINE NEGATIVE (NEGATIVE); PROTEIN,URINE DIPSTICK TRACE (NEGATIVE); URINE UROBILINOGEN 0.2 mg/dL (0.2 - 1)
[2018-12-20] MEDS ORDERED: MORPHINE SULFATE 2 MG/ML SYR 1ML ONE (21:40)
[2018-12-20 21:47] LABS: ALANINE AMINOTRANSFERASE 17 IU/L (0-55); ALBUMIN 3.7 g/dL (3.5-5.0); ALKALINE PHOSPHATASE 105 IU/L (40-150); ANION GAP 16.8 mmol/L (8-16); BLOOD UREA NITROGEN 18 mg/dL (7-26); BUN/CREATININE RATIO 20 (6-25); CALCIUM 9.4 mg/dL (8.4-10.2); CARBON DIOXIDE 27 mmol/L (22-29); CHLORIDE 100 mmol/L (98-107); CREATINE KINASE 49 IU/L (30-200); CREATININE, SERUM 0.88 mg/dL (0.72-1.25); EST GLOMERULAR FILTRATION RATE > 60 ML/MIN (60-); GLUCOSE 93 mg/dL (74-118); LIPASE 8 U/L (8-78); POTASSIUM 3.8 mmol/L (3.5-5.1); SODIUM 140 mmol/L (136-145)
[2018-12-20 21:51] LABS: BACTERIA,URINE FEW /HPF; CALCIUM OXALATE CRYSTALS,UR MODERATE (FEW); HYALINE CASTS 0-1 (0-1)
--- NOTE | 2018-12-20 22:31 | Diagnostic Imaging Report ---
EXAMINATION: CHEST SINGLE (PORTABLE) INDICATION: ^ERMD ORDER ^[id number] ^[id number] ^Y COMPARISON: 11/05/2018 FINDINGS: AP view TUBES and LINES: None. LUNGS: Low lung volumes. There is no evidence of pneumonia or pulmonary edema. PLEURA: No pleural effusion or pneumothorax. HEART AND MEDIASTINUM: The cardiomediastinal silhouette is unremarkable. BONES AND SOFT TISSUES: No acute osseous lesion. Soft tissues are unremarkable. UPPER ABDOMEN: No free air under the diaphragm. IMPRESSION: No acute thoracic abnormality. Signed by: Dr. Souleymane Garcia MD on 12/20/2018 10:28 PM
[2018-12-20] MEDS ORDERED: SODIUM CHLORIDE 0.9% 50ML 50 ML ONE (22:33)
[2018-12-20] MEDS ORDERED: IOPAMIDOL 370 MG/ML 200 ML INFUS..BTL INJ ONE (22:33)
--- NOTE | 2018-12-20 23:44 | Diagnostic Imaging Report ---
EXAM: CT Abdomen and Pelvis WITH contrast INDICATION: ^recent surgery with chills/pain COMPARISON: CT dated 12/06/2018 TECHNIQUE: Abdomen and pelvis were scanned utilizing a multidetector helical scanner from the lung base to the pubic symphysis after administration of IV contrast. Coronal and sagittal reformations were obtained. Dose modulation, iterative reconstruction, and/or weight based adjustment of the mA/kV was utilized to reduce the radiation dose to as low as reasonably achievable. Routine protocol was performed. Scan was performed when during portal venous phase. IV CONTRAST: 100 mL of Isovue-370 ORAL CONTRAST: Water COMPLICATIONS: None RADIATION DOSE: Total DLP: 934.09 mGy*cm Estimated effective dose: (DLP x 0.015 x size factor) mSv CTDIvol has been reviewed. It is below the limits set by the Radiation Protocol Committee (RPC). FINDINGS: LINES and TUBES: None. LOWER THORAX: Unremarkable HEPATOBILIARY: 2.4 cm right hepatic lobe hypodensity is not significantly changed, previously 2.2 cm. No additional hepatic lesion. No biliary ductal dilation. GALLBLADDER: No radio-opaque stones or sludge. No wall thickening. SPLEEN: No splenomegaly. Stable 3.2 cm splenic hypodensity. PANCREAS: No focal masses or ductal dilatation. ADRENALS: No adrenal nodules KIDNEYS/URETERS: Kidneys enhance symmetrically. No hydronephrosis. No cystic or solid mass lesions. No stones. GI TRACT: No abnormal distention, wall thickening, or evidence of bowel obstruction. Redundant sigmoid colon. Appendix is not visualized. Small bowel anastomosis in right abdomen. There is mild fat stranding adjacent to the small bowel anastomosis as well as a 0.6 cm fat density lesion (series 2, image 50). Evidence of gastric bypass surgery. PELVIC ORGANS/BLADDER: Unremarkable. LYMPH NODES: No lymphadenopathy. VESSELS: Unremarkable. PERITONEUM / RETROPERITONEUM: No free air or fluid. BONES: Again seen L1 vertebral body compression deformity. SOFT TISSUES: Midline abdominal wall laparotomy scar. IMPRESSION: 1. Fat stranding and a small fat-containing lesion adjacent to small bowel anastomosis in right abdomen, could represent fat necrosis or less likely epiploic appendagitis. Otherwise, no acute inflammatory process identified within the abdomen/pelvis. 2. Stable hepatic and splenic hypodensities, which could represent cysts. Nonurgent abdominal ultrasound can be obtained to confirm. Signed by: Dr. Souleymane Garcia MD on 12/20/2018 11:41 PM
--- NOTE | 2018-12-21 | NUR ---
PT STATES PAIN IS 7/10; PT STATES THAT AFTER HE WAS GIVEN THE MORPHINE "THE PAIN NEVER WENT AWAY. I FORGOT TO TELL YOU MORPHINE DOESN'T REALLY HELP WITH MY PAIN. THEY USUALLY GIVE ME DILAUDID AND THAT BRINGS IT DOWN TO A 0"; PT REQUESTING MORE PAIN MEDICATION STATING "IT EVERY 4 HOURS, COULD YOU ASK THE DOCTOR IF I COULD HAVE DILAUDID?"; ER NOTIFIED
[2018-12-21] MEDS ORDERED: ULTRAM50 MG PO (00:13)
[2018-12-21 02:40] VITALS: BP 142/74
[2018-12-30] MEDS ORDERED: ELOQUIS PO (10:04)
[2018-12-30] MEDS ORDERED: AMIODARONE HCL200 MG PO (10:04)
== END 2018-12-21 02:15 | disposition home or self-care (01) ==
LOC: ER 20:11
DX: R10.84 Generalized abdominal pain (principal); Z98.890 Other specified postprocedural states; I10 Essential (primary) hypertension; I48.91 Unspecified atrial fibrillation; K21.9 Gastro-esophageal reflux disease without esophagitis; Z86.718 Personal history of other venous thrombosis and embolism
CPT/HCPCS: 36415; 71045; 74177; 80053; 81001; 82550; 82553; 83605; 83690; 84484; 85025; 87040; 99284; J0692; J2270 ×2; J2405; J7030; Q9967

== ENCOUNTER → 2019-01-01 | Day surgery (SDC) | payer BC ==
[2018-12-30 11:23] LABS: BASOPHILS % 0.8 % (0.0-1.0); EOSINOPHILS # (AUTO) 0.2 (0.0-0.4); EOSINOPHILS % 3.7 % (0.0-6.0); HEMATOCRIT 31.7 % (38.2-49.6); HEMOGLOBIN 9.8 g/dL (14.0-18.0); LYMPHOCYTES # (AUTO) 1.5 (1.0-3.2); LYMPHOCYTES % 28.5 % (18.0-39.1); MEAN CORPUSCULAR HEMOGLOBIN 25.7 pg (28-32); MEAN CORPUSCULAR HGB CONC 30.9 g/dL (31-35); MONOCYTES # (AUTO) 0.5 (0.2-0.8); MONOCYTES % 9.3 % (4.4-11.3); NEUTROPHILS # (AUTO) 2.9 (2.1-6.9); NEUTROPHILS % 57.5 % (38.7-80.0); PLATELET COUNT 209 x10e3/uL (140-360); RED BLOOD COUNT 3.82 x10e6/uL (4.3-5.7); RED CELL DISTRIBUTION WIDTH 15.6 % (11.7-14.4)
[~2019-01-01] MED LIST changes: +ELOQUIS PO; +LIDOCAINE HCL 2% LOCAL INJ 5 ML SDV VIAL INJ ONE; +MIDAZOLAM HCL 2 MG/2 ML VIAL ONE; +PROPOFOL IV EMULSION 10 MG/ML 50 ML VIAL ONE; +ULTRAM50 MG PO
[2019-01-01 16:10] VITALS: BP 129/92
--- NOTE | 2019-01-01 21:25 | Operative Report ---
DATE OF PROCEDURE: 01/01/2019 SURGEON: Jt Mayorga MD PROCEDURE: EGD with biopsies. INDICATIONS FOR EGD: Upper abdominal pain. MEDICATION: The patient was done under MAC, please see anesthesiologist's note. PROCEDURE IN DETAIL: With the patient in left lateral decubitus position, a flexible fiberoptic Olympus gastroscope was introduced into the esophagus under direct visualization without any difficulty. The esophagus appeared to be within normal limits. The scope was then advanced with ease into the stomach and the patient is status post Luna-en-Y. An approximately 1 cm marginal ulcer was noted without active bleeding or stigmata of recent hemorrhage. The efferent loop was patent. Several minute polyps were noted in the gastric stump and some were partially excised with the cold biopsy forceps. The scope was then retroflexed and the area around the cardia and the fundus appeared to be within normal limits. There were some postoperative changes. They are overall appeared to be within normal limits. The scope was then straightened out. The stomach was decompressed. The scope was subsequently withdrawn and the patient tolerated the procedure well. IMPRESSION: 1. Normal esophagus. 2. Status post Luna-en-Y. Minute polyps in gastric stump, some partially excised with the cold biopsy forceps. 3. Approximately 1 cm marginal ulcer without active bleeding. The efferent loop patent. PLAN: Follow up histology. Continue current therapy. The patient will need a repeat EGD after 2 months on treatment to re-evaluate ulcer. Jt Mayorga MD [facility]/ELIASL /[id number] cc: MD Chai Goldberg DO
== END | disposition home or self-care (01) ==
LOC: OR 11:24
PROVIDERS: ATTEND Internal Medicine Gastroenterology
DX: K29.50 Unspecified chronic gastritis without bleeding (principal); R11.0 Nausea; Z72.0 Tobacco use; Z71.3 Dietary counseling and surveillance; Z79.01 Long term (current) use of anticoagulants; I48.91 Unspecified atrial fibrillation; Z87.11 Personal history of peptic ulcer disease; Z98.84 Bariatric surgery status; K31.7 Polyp of stomach and duodenum; Z68.38 Body mass index [BMI] 38.0-38.9, adult; I50.9 Heart failure, unspecified; Z86.711 Personal history of pulmonary embolism; Z01.812 Encounter for preprocedural laboratory examination
CPT/HCPCS: 36415; 43239; 85025; J2001; J2250; J2704

== ENCOUNTER 2022-05-13 22:34 | Observation (INO) | payer BC, OTHER ==
[~2022-05-13] VITALS: Ht 175.3 cm; Wt 115.2 kg
[~2022-05-13 22:34] MED LIST changes: -LIDOCAINE HCL 2% LOCAL INJ 5 ML SDV VIAL INJ ONE; -MIDAZOLAM HCL 2 MG/2 ML VIAL ONE; -PROPOFOL IV EMULSION 10 MG/ML 50 ML VIAL ONE
[2022-05-13] MEDS ORDERED: DIGOXIN INJ 0.25 MG/ML 2 ML AMP IV STA (22:50)
[2022-05-13] MEDS ORDERED: FUROSEMIDE INJ 10 MG/ML 2 ML VIAL IV STA (22:59)
[2022-05-13 23:07] LABS: BASOPHILS % 0.5 % (0.0-1.0); EOSINOPHILS # (AUTO) 0.1 (0.0-0.4); EOSINOPHILS % 1.6 % (0.0-6.0); HEMATOCRIT 33.2 % (38.2-49.6); HEMOGLOBIN 10.3 g/dL (14.0-18.0); LYMPHOCYTES # (AUTO) 2.1 (1.0-3.2); LYMPHOCYTES % 29.2 % (18.0-39.1); MEAN CORPUSCULAR HEMOGLOBIN 26.4 pg (28-32); MEAN CORPUSCULAR VOLUME 85.1 fL (81-99); MONOCYTES # (AUTO) 0.7 (0.2-0.8); MONOCYTES % 9.7 % (4.4-11.3); NEUTROPHILS # (AUTO) 4.3 (2.1-6.9); NEUTROPHILS % 58.7 % (38.7-80.0); PLATELET COUNT 292 x10e3/uL (140-360)
[2022-05-13] MEDS ORDERED: FUROSEMIDE INJ 10 MG/ML 2 ML VIAL ONE (23:15)
[2022-05-13 23:25] LABS: ALBUMIN 3.5 g/dL (3.5-5.0); ANION GAP 12.7 mmol/L (8-16); CALCIUM 8.6 mg/dL (8.4-10.2); CREATININE, SERUM 1.18 mg/dL (0.72-1.25); POTASSIUM 4.7 mmol/L (3.5-5.1)
[2022-05-13 23:32] LABS: CREATINE KINASE MB 0.8 ng/mL (0-5.0)
[2022-05-14] VITALS (9 sets, daily range): BP systolic 96–116; BP diastolic 64–76
[2022-05-14] MEDS ORDERED: IOPAMIDOL 370 MG/ML 100 ML INFUS..BTL INJ ONE (00:35)
[2022-05-14 02:09] LABS: AMPHETAMINES SCREEN,URINE NEGATIVE (NEGATIVE); BENZODIAZEPINES SCREEN,URINE NEGATIVE (NEGATIVE); PHENCYCLIDINE SCREEN,URINE NEGATIVE (NEGATIVE)
[2022-05-14 07:12] LABS: CREATINE KINASE MB 0.8 ng/mL (0-5.0)
[2022-05-14] MEDS: APIXABAN 5 MG TABLET PO SCH (17:12)
[2022-05-15] VITALS (8 sets, daily range): BP systolic 101–122; BP diastolic 78–86
[2022-05-15 06:37] LABS: ALBUMIN 2.9 g/dL (3.5-5.0); ALBUMIN/GLOBULIN RATIO 0.9 (0.8-2.0); CALCIUM 8.5 mg/dL (8.4-10.2); CREATININE, SERUM 0.8 mg/dL (0.72-1.25)
[2022-05-15 06:40] LABS: BASOPHILS % 0.5 % (0.0-1.0); EOSINOPHILS # (AUTO) 0.2 (0.0-0.4); EOSINOPHILS % 2.8 % (0.0-6.0); HEMATOCRIT 31.9 % (38.2-49.6); HEMOGLOBIN 9.7 g/dL (14.0-18.0); LYMPHOCYTES # (AUTO) 1.5 (1.0-3.2); LYMPHOCYTES % 26.2 % (18.0-39.1); MEAN CORPUSCULAR HEMOGLOBIN 28.7 pg (28-32); MEAN CORPUSCULAR HGB CONC 30.4 g/dL (31-35); MEAN CORPUSCULAR VOLUME 94.4 fL (81-99); MONOCYTES # (AUTO) 0.5 (0.2-0.8); MONOCYTES % 9.3 % (4.4-11.3); NEUTROPHILS # (AUTO) 3.5 (2.1-6.9); NEUTROPHILS % 60.9 % (38.7-80.0); PLATELET COUNT 182 x10e3/uL (140-360); RED BLOOD COUNT 3.38 x10e6/uL (4.3-5.7); RED CELL DISTRIBUTION WIDTH 16.5 % (11.7-14.4)
[2022-05-15 07:17] LABS: CREATINE KINASE MB 0.8 ng/mL (0-5.0)
[2022-05-15] MEDS: PANTOPRAZOLE SOD 40 MG TABEC PO SCH (08:19)
[2022-05-15] MEDS: APIXABAN 5 MG TABLET PO SCH ×2 (08:19→16:36)
[2022-05-15] MEDS: METOPROLOL SUCCINATE 25 MG TAB XL PO SCH (08:20)
[2022-05-15] MEDS: FUROSEMIDE 40 MG TAB PO SCH (08:21)
[2022-05-15 14:11] LABS: ANION GAP 12.5 mmol/L (8-16); CALCIUM 8.8 mg/dL (8.4-10.2); CREATININE, SERUM 0.91 mg/dL (0.72-1.25); POTASSIUM 4.5 mmol/L (3.5-5.1)
[2022-05-16] VITALS: BP 114/70
[2022-05-16 04:00] VITALS: BP 112/78
[2022-05-16 06:15] LABS: BASOPHILS % 0.7 % (0.0-1.0); EOSINOPHILS # (AUTO) 0.2 (0.0-0.4); HEMATOCRIT 29.9 % (38.2-49.6); HEMOGLOBIN 9.5 g/dL (14.0-18.0); LYMPHOCYTES # (AUTO) 1.5 (1.0-3.2); LYMPHOCYTES % 26.1 % (18.0-39.1); MEAN CORPUSCULAR HEMOGLOBIN 28.8 pg (28-32); MEAN CORPUSCULAR HGB CONC 31.8 g/dL (31-35); MEAN CORPUSCULAR VOLUME 90.6 fL (81-99); MONOCYTES # (AUTO) 0.6 (0.2-0.8); MONOCYTES % 10.1 % (4.4-11.3); NEUTROPHILS # (AUTO) 3.4 (2.1-6.9); NEUTROPHILS % 59.7 % (38.7-80.0); PLATELET COUNT 182 x10e3/uL (140-360); RED CELL DISTRIBUTION WIDTH 16.9 % (11.7-14.4)
[2022-05-16 06:39] LABS: ANION GAP 11.7 mmol/L (8-16); CALCIUM 8.2 mg/dL (8.4-10.2); CREATININE, SERUM 0.8 mg/dL (0.72-1.25); MAGNESIUM 1.9 MG/DL (1.3-2.1); POTASSIUM 3.7 mmol/L (3.5-5.1)
[2022-05-16 07:34] LABS: EOSINOPHILS % (MANUAL) 3 % (0-7); LYMPHOCYTES % (MANUAL) 24 % (19-48); MONOCYTES % (MANUAL) 8 % (3.4-9.0); NEUTROPHILS % (MANUAL) 65 % (40-74); PLATELET ESTIMATE ADEQUATE; PLATELET MORPHOLOGY COMMENT NORMAL; RBC MORPHOLOGY COMMENT NORMAL
[2022-05-16 08:00] VITALS: BP 116/85
[2022-05-16] MEDS: FUROSEMIDE 40 MG TAB PO SCH (08:50)
[2022-05-16] MEDS: METOPROLOL SUCCINATE 25 MG TAB XL PO SCH (08:51)
[2022-05-16] MEDS: APIXABAN 5 MG TABLET PO SCH (08:51)
[2022-05-16] MEDS: PANTOPRAZOLE SOD 40 MG TABEC PO SCH (08:51)
[2022-05-16] MEDS ORDERED: LISINOPRIL 2.5 MG TAB PO SCH (09:00)
[2022-05-16 09:31] VITALS: BP 116/85
[2022-05-16 11:58] VITALS: BP 109/95
[2022-05-16] MEDS ORDERED: ELIQUIS5 MG PO (13:05)
[2022-05-16 13:12] VITALS: BP_SYST 100; BP_SYST 115; BP_DIAS 73; BP_DIAS 80
[2022-05-16] MEDS ORDERED: METOPROLOL TART50 MG PO (13:58)
== END 2022-05-16 15:23 | disposition home or self-care (01) ==
LOC: ER 22:40 → ERHOLD 05-14 00:47 → INTOOBSV 05-14 00:47 → MED/SURG2 05-14 01:55
PROVIDERS: ADMIT Internal Medicine; ATTEND Internal Medicine
DX: I11.0 Hypertensive heart disease with heart failure (principal); I50.9 Heart failure, unspecified; I48.91 Unspecified atrial fibrillation; Z79.01 Long term (current) use of anticoagulants; F19.10 Other psychoactive substance abuse, uncomplicated; R74.01 Elevation of levels of liver transaminase levels; Z86.718 Personal history of other venous thrombosis and embolism; Z20.822 Contact with and (suspected) exposure to COVID-19
CPT/HCPCS: 36415; 71260; 80048; 80053; 80307; 80320; 82550; 82553; 83690; 83735; 83880; 84484; 85025; 85379; 93005; 93306; 93930; 94799; 99285; G0378; J1160; J1940; Q9967

== ENCOUNTER 2022-06-10 10:10 | Inpatient (IN) | payer OTHER ==
[~2022-06-10] VITALS: Ht 175.3 cm; Wt 145.4 kg
[~2022-06-10 10:10] MED LIST changes: +ELIQUIS5 MG PO; +METOPROLOL TART50 MG PO
[2022-06-10] MEDS ORDERED: SODIUM CHLORIDE 0.9% 500ML 500 ML IV ONE ×2 (11:15→11:45)
[2022-06-10 11:19] LABS: INR 2.8; PROTHROMBIN TIME 29.9 seconds (11.9-14.5)
[2022-06-10 11:20] LABS: PARTIAL THROMBOPLASTIN TIME 38.7 seconds (23.8-35.5)
[2022-06-10 11:26] LABS: BASOPHILS # (AUTO) 0.1 (0.0-0.1); BASOPHILS % 0.7 % (0.0-1.0); EOSINOPHILS % 0.2 % (0.0-6.0); HEMATOCRIT 36.2 % (38.2-49.6); HEMOGLOBIN 10.6 g/dL (14.0-18.0); LYMPHOCYTES # (AUTO) 1.7 (1.0-3.2); LYMPHOCYTES % 20.3 % (18.0-39.1); MEAN CORPUSCULAR HEMOGLOBIN 24.8 pg (28-32); MEAN CORPUSCULAR HGB CONC 29.3 g/dL (31-35); MEAN CORPUSCULAR VOLUME 84.8 fL (81-99); MONOCYTES # (AUTO) 0.7 (0.2-0.8); MONOCYTES % 8.4 % (4.4-11.3); NEUTROPHILS # (AUTO) 5.9 (2.1-6.9); PLATELET COUNT 291 x10e3/uL (140-360); RED BLOOD COUNT 4.27 x10e6/uL (4.3-5.7); RED CELL DISTRIBUTION WIDTH 16.3 % (11.7-14.4)
[2022-06-10 12:10] LABS: ALANINE AMINOTRANSFERASE 463 IU/L (0-55); ALBUMIN 2.5 g/dL (3.5-5.0); ALBUMIN/GLOBULIN RATIO 0.9 (0.8-2.0); ALKALINE PHOSPHATASE 112 IU/L (40-150); ANION GAP 17.8 mmol/L (8-16); BLOOD UREA NITROGEN 25 mg/dL (7-26); BUN/CREATININE RATIO 26 (6-25); CARBON DIOXIDE 15 mmol/L (22-29); CHLORIDE 115 mmol/L (98-107); CREATINE KINASE 64 IU/L (30-200); CREATININE, SERUM 0.98 mg/dL (0.72-1.25); GLUCOSE 64 mg/dL (74-118); MAGNESIUM 1.6 MG/DL (1.3-2.1); POTASSIUM 3.8 mmol/L (3.5-5.1); SODIUM 144 mmol/L (136-145)
[2022-06-10] MEDS ORDERED: DEXTROSE 50% SYRINGE 50 ML IV ONE (12:30)
[2022-06-10] MEDS ORDERED: PROPAFENONE HC325 MG PO (12:52)
[2022-06-10] MEDS ORDERED: FUROSEMIDE40 MG PO (12:53)
[2022-06-10] MEDS ORDERED: DEXTROSE 50% SYRINGE 50 ML IV PRN (13:15)
[2022-06-10 13:28] LABS: CLARITY,URINE SL CLOUDY (CLEAR); COLOR,URINE YELLOW (YELLOW); LEUKOCYTE ESTERASE ,URINE NEGATIVE (NEGATIVE)
[2022-06-10 13:29] LABS: KETONES,URINE NEGATIVE (NEGATIVE); NITRITE,URINE NEGATIVE (NEGATIVE); PROTEIN,URINE DIPSTICK >=300 (NEGATIVE)
[2022-06-10 13:43] LABS: CLARITY,URINE SL CLOUDY (CLEAR); COLOR,URINE YELLOW (YELLOW); KETONES,URINE NEGATIVE (NEGATIVE); LEUKOCYTE ESTERASE ,URINE NEGATIVE (NEGATIVE); NITRITE,URINE NEGATIVE (NEGATIVE); PROTEIN,URINE DIPSTICK >=300 (NEGATIVE)
[2022-06-10 13:44] LABS: BACTERIA,URINE MODERATE /HPF; EPITHELIAL CELLS,URINE FEW /LPF; HYALINE CASTS >15 (0-1)
[2022-06-10 15:24] LABS: CREATINE KINASE MB < 1.00 ng/mL (0-4.3)
[2022-06-10 15:33] LABS: BACTERIA,URINE MODERATE /HPF; EPITHELIAL CELLS,URINE MODERATE /LPF; MUCUS,URINE MODERATE (RARE); RBC,URINE 0-5 /HPF (0-5)
[2022-06-10] MEDS: NOREPINEPHRINE 8 MG/D5W 250 ML 250 ML IV SCH (16:02)
[2022-06-10] MEDS ORDERED: FUROSEMIDE INJ 10 MG/ML 4 ML VIAL IV ONE (16:15)
[2022-06-10] MEDS ORDERED: Vancomycin IV 1 GM in SODIUM CHLORIDE 0.9% 250ML 250 ML IV ONE (16:30)
[2022-06-10] MEDS ORDERED: SODIUM CHLORIDE 0.45% 1,000 ML IV ONE (16:30)
[2022-06-10 16:43] LABS: ABG HCO3 14 mmol/L (22-26); ABG PCO2 23 mmHg (35-45); ABG PH 7.39 (7.35-7.45); ABG PO2 92 mmHg (80-105); ABG TCO2 14
[2022-06-10] MEDS ORDERED: IOPAMIDOL 370 MG/ML 100 ML INFUS..BTL INJ ONE (17:35)
[2022-06-10 18:35] LABS: SALICYLATE < 5.0 mg/dL (0-30)
[2022-06-10 19:12] LABS: CREATINE KINASE 109 IU/L (30-200)
[2022-06-10] MEDS: ONDANSETRON HCL INJ 2MG/ML 2ML 2 MG/ML VIAL IV PRN (23:00)
[2022-06-11] VITALS (26 sets, daily range): BP systolic 94–119; BP diastolic 63–95
[2022-06-11 00:50] LABS: CREATINE KINASE 186 IU/L (30-200)
[2022-06-11] MEDS ORDERED: APIXABAN 5 MG TABLET PO SCH (06:00)
[2022-06-11 06:40] LABS: BASOPHILS # (AUTO) 0.1 (0.0-0.1); BASOPHILS % 0.3 % (0.0-1.0); HEMATOCRIT 38.1 % (38.2-49.6); HEMOGLOBIN 10.7 g/dL (14.0-18.0); LYMPHOCYTES % 10.5 % (18.0-39.1); MEAN CORPUSCULAR HEMOGLOBIN 24.5 pg (28-32); MEAN CORPUSCULAR HGB CONC 28.1 g/dL (31-35); MEAN CORPUSCULAR VOLUME 87.2 fL (81-99); MONOCYTES # (AUTO) 1.6 (0.2-0.8); MONOCYTES % 8.4 % (4.4-11.3); NEUTROPHILS % 79.9 % (38.7-80.0); PLATELET COUNT 319 x10e3/uL (140-360); RED BLOOD COUNT 4.37 x10e6/uL (4.3-5.7); RED CELL DISTRIBUTION WIDTH 16.2 % (11.7-14.4)
[2022-06-11] MEDS: NOREPINEPHRINE 8 MG/D5W 250 ML 250 ML IV SCH ×2 (06:49→22:24)
[2022-06-11 07:03] LABS: ALBUMIN 3.4 g/dL (3.5-5.0); ALBUMIN/GLOBULIN RATIO 0.9 (0.8-2.0); ANION GAP 24.2 mmol/L (8-16); CREATININE, SERUM 2.52 mg/dL (0.72-1.25)
[2022-06-11 07:11] LABS: POTASSIUM 5.2 mmol/L (3.5-5.1)
[2022-06-11 07:31] LABS: CREATINE KINASE 275 IU/L (30-200)
[2022-06-11 08:24] LABS: INR 6.52
[2022-06-11 08:28] LABS: PROTHROMBIN TIME 56.7 seconds (11.9-14.5)
[2022-06-11] MEDS ORDERED: LACTULOSE SYRUP 20 GM/30 ML UDC PO PRN (09:00)
[2022-06-11] MEDS ORDERED: FUROSEMIDE INJ 10 MG/ML 4 ML VIAL IV SCH (09:00)
[2022-06-11] MEDS ORDERED: PHYTONADIONE 10 MG/ML AMP SQ ONE (09:05)
[2022-06-11] MEDS ORDERED: OCTREOTIDE ACETATE 0.05 MG/ML AMP IV ONE (09:15)
[2022-06-11] MEDS: RIFAXIMIN 550 MG TABLET PO SCH ×2 (09:46→16:58)
[2022-06-11] MEDS: OCTREOTIDE ACETATE 500 MCG in SODIUM CHLORIDE 0.9% 250ML 249 ML IV SCH (09:47)
[2022-06-11] MEDS: ONDANSETRON HCL INJ 2MG/ML 2ML 2 MG/ML VIAL IV PRN (10:12)
[2022-06-11] MEDS: MIDODRINE HCL 5 MG TABLET PO SCH ×2 (13:33→16:58)
[2022-06-11] MEDS: ALBUMIN 25% 25GM 100ML 0.25 GM/ML BTL IV SCH ×2 (13:34→22:08)
[2022-06-11 16:50] LABS: ANION GAP 22.2 mmol/L (8-16); CALCIUM 8.4 mg/dL (8.4-10.2); CREATININE, SERUM 2.56 mg/dL (0.72-1.25); POTASSIUM 5.2 mmol/L (3.5-5.1)
[2022-06-11] MEDS ORDERED: PNEUMOCOCCAL VACCINE POLYVALENT 23 MCG/0.5 ML VIAL IM ONE (17:43)
[2022-06-11] MEDS ORDERED: PROPAFENONE HC325 MG PO (21:42)
[2022-06-11] MEDS: PROPAFENONE HCL 150 MG TAB PO SCH (22:23)
[2022-06-12] VITALS (62 sets, daily range): BP systolic 72–151; BP diastolic 46–130
[2022-06-12] MEDS: OCTREOTIDE ACETATE 500 MCG in SODIUM CHLORIDE 0.9% 250ML 249 ML IV SCH ×2 (04:30→23:14)
[2022-06-12] MEDS: ALBUMIN 25% 25GM 100ML 0.25 GM/ML BTL IV SCH ×3 (05:03→21:08)
[2022-06-12] MEDS: PROPAFENONE HCL 150 MG TAB PO SCH ×3 (05:04→21:08)
[2022-06-12 06:02] LABS: PARTIAL THROMBOPLASTIN TIME 55.6 seconds (23.8-35.5)
[2022-06-12 06:05] LABS: PROTHROMBIN TIME 66.2 seconds (11.9-14.5)
[2022-06-12 08:10] LABS: BASOPHILS % 0.5 % (0.0-1.0); EOSINOPHILS # (AUTO) 0.2 (0.0-0.4); EOSINOPHILS % 1.7 % (0.0-6.0); HEMATOCRIT 29.7 % (38.2-49.6); HEMOGLOBIN 8.5 g/dL (14.0-18.0); LYMPHOCYTES # (AUTO) 1.3 (1.0-3.2); LYMPHOCYTES % 14.6 % (18.0-39.1); MEAN CORPUSCULAR HEMOGLOBIN 24.6 pg (28-32); MEAN CORPUSCULAR HGB CONC 28.6 g/dL (31-35); MEAN CORPUSCULAR VOLUME 85.8 fL (81-99); MONOCYTES # (AUTO) 0.5 (0.2-0.8); MONOCYTES % 5.9 % (4.4-11.3); NEUTROPHILS # (AUTO) 6.7 (2.1-6.9); NEUTROPHILS % 76.8 % (38.7-80.0); PLATELET COUNT 180 x10e3/uL (140-360); RED BLOOD COUNT 3.46 x10e6/uL (4.3-5.7)
[2022-06-12] MEDS: RIFAXIMIN 550 MG TABLET PO SCH ×2 (08:24→16:54)
[2022-06-12] MEDS: MIDODRINE HCL 5 MG TABLET PO SCH ×3 (08:24→16:54)
[2022-06-12] MEDS ORDERED: SODIUM CHLORIDE 0.9% 250ML 250 ML ONE (08:27)
[2022-06-12 08:30] LABS: ALBUMIN 3.4 g/dL (3.5-5.0); ALBUMIN/GLOBULIN RATIO 1.2 (0.8-2.0); ANION GAP 13.2 mmol/L (8-16); CALCIUM 8.2 mg/dL (8.4-10.2); CREATININE, SERUM 2.05 mg/dL (0.72-1.25); POTASSIUM 4.2 mmol/L (3.5-5.1)
[2022-06-12 08:57] LABS: CREATININE,URINE RANDOM 107.24 mg/dL (63-166); TOTAL PROTEIN, URINE 64.4 mg/dL (1-14)
[2022-06-12 09:00] LABS: SODIUM,URINE < 20 mmol/L
[2022-06-12] MEDS ORDERED: MEROPENEM 1 GM in SODIUM CHLORIDE 0.9% 100 ML IV SCH (16:30)
[2022-06-12] MEDS ORDERED: FLUCONAZOLE 200 MG/100 ML 100 ML IV SCH (17:00)
[2022-06-13] VITALS (30 sets, daily range): BP systolic 90–130; BP diastolic 64–107
[2022-06-13] MEDS: PROPAFENONE HCL 150 MG TAB PO SCH ×2 (06:05→14:00)
[2022-06-13] MEDS: ALBUMIN 25% 25GM 100ML 0.25 GM/ML BTL IV SCH (06:06)
[2022-06-13 06:27] LABS: BASOPHILS % 0.3 % (0.0-1.0); EOSINOPHILS # (AUTO) 0.1 (0.0-0.4); EOSINOPHILS % 1.9 % (0.0-6.0); HEMATOCRIT 30.1 % (38.2-49.6); HEMOGLOBIN 8.6 g/dL (14.0-18.0); LYMPHOCYTES % 13.7 % (18.0-39.1); MEAN CORPUSCULAR HEMOGLOBIN 24.5 pg (28-32); MEAN CORPUSCULAR HGB CONC 28.6 g/dL (31-35); MEAN CORPUSCULAR VOLUME 85.8 fL (81-99); MONOCYTES # (AUTO) 0.5 (0.2-0.8); MONOCYTES % 6.6 % (4.4-11.3); NEUTROPHILS # (AUTO) 5.6 (2.1-6.9); NEUTROPHILS % 77.1 % (38.7-80.0); PLATELET COUNT 147 x10e3/uL (140-360); RED BLOOD COUNT 3.51 x10e6/uL (4.3-5.7); RED CELL DISTRIBUTION WIDTH 16.2 % (11.7-14.4)
[2022-06-13 06:41] LABS: INR 3.72; PROTHROMBIN TIME 37.1 seconds (11.9-14.5)
[2022-06-13 06:42] LABS: PARTIAL THROMBOPLASTIN TIME 45.8 seconds (23.8-35.5)
[2022-06-13 06:44] LABS: ALBUMIN 3.6 g/dL (3.5-5.0); ALBUMIN/GLOBULIN RATIO 1.2 (0.8-2.0); ANION GAP 15.4 mmol/L (8-16); CALCIUM 8.5 mg/dL (8.4-10.2); CREATININE, SERUM 1.16 mg/dL (0.72-1.25); POTASSIUM 4.4 mmol/L (3.5-5.1)
[2022-06-13] MEDS: MIDODRINE HCL 5 MG TABLET PO SCH ×3 (08:00→16:28)
[2022-06-13] MEDS: RIFAXIMIN 550 MG TABLET PO SCH ×2 (11:12→16:28)
[2022-06-13] MEDS ORDERED: METOPROLOL TARTRATE INJ 1 MG/ML VIAL IV PRN (18:15)
[2022-06-13] MEDS: OCTREOTIDE ACETATE 500 MCG in SODIUM CHLORIDE 0.9% 250ML 249 ML IV SCH (20:18)
[2022-06-14] VITALS (14 sets, daily range): BP systolic 96–137; BP diastolic 64–115
[2022-06-14 06:33] LABS: BASOPHILS % 0.6 % (0.0-1.0); EOSINOPHILS # (AUTO) 0.2 (0.0-0.4); EOSINOPHILS % 2.5 % (0.0-6.0); HEMATOCRIT 30.6 % (38.2-49.6); HEMOGLOBIN 8.9 g/dL (14.0-18.0); LYMPHOCYTES # (AUTO) 1.1 (1.0-3.2); LYMPHOCYTES % 15.2 % (18.0-39.1); MEAN CORPUSCULAR HEMOGLOBIN 24.8 pg (28-32); MEAN CORPUSCULAR HGB CONC 29.1 g/dL (31-35); MEAN CORPUSCULAR VOLUME 85.2 fL (81-99); MONOCYTES # (AUTO) 0.6 (0.2-0.8); MONOCYTES % 8.7 % (4.4-11.3); NEUTROPHILS # (AUTO) 5.2 (2.1-6.9); NEUTROPHILS % 72.4 % (38.7-80.0); PLATELET COUNT 144 x10e3/uL (140-360); RED BLOOD COUNT 3.59 x10e6/uL (4.3-5.7); RED CELL DISTRIBUTION WIDTH 16.8 % (11.7-14.4)
[2022-06-14 06:46] LABS: INR 2.45
[2022-06-14 06:49] LABS: MAGNESIUM 2.3 MG/DL (1.3-2.1); PHOSPHORUS 1.4 MG/DL (2.3-4.7)
[2022-06-14 06:51] LABS: ALBUMIN 3.4 g/dL (3.5-5.0); ALBUMIN/GLOBULIN RATIO 1.2 (0.8-2.0); ANION GAP 12.4 mmol/L (8-16); CALCIUM 8.5 mg/dL (8.4-10.2); CREATININE, SERUM 0.78 mg/dL (0.72-1.25); POTASSIUM 4.4 mmol/L (3.5-5.1)
[2022-06-14] MEDS: RIFAXIMIN 550 MG TABLET PO SCH ×2 (09:03→17:00)
[2022-06-14] MEDS: MIDODRINE HCL 5 MG TABLET PO SCH ×3 (09:03→16:00)
[2022-06-14] MEDS: LACTULOSE SYRUP 20 GM/30 ML UDC PO SCH ×2 (14:14→23:24)
[2022-06-14] MEDS: ONDANSETRON HCL INJ 2MG/ML 2ML 2 MG/ML VIAL IV PRN (15:09)
[2022-06-14] MEDS ORDERED: AMIODARONE HCL 150 MG/100 ML BAG IV ONE (15:30)
[2022-06-14] MEDS ORDERED: AMIODARONE HCL 100 ML IV ONE (15:45)
[2022-06-14] MEDS: OCTREOTIDE ACETATE 500 MCG in SODIUM CHLORIDE 0.9% 250ML 249 ML IV SCH (15:54)
[2022-06-14] MEDS ORDERED: AMIODARONE 900MG 500 ML IV SCH ×2 (16:00→22:15)
[2022-06-14] MEDS ORDERED: SODIUM PHOSPHATE 30 MMOL in SODIUM CHLORIDE 0.9% 250ML 250 ML IV ONE (18:00)
[2022-06-14] MEDS: DILTIAZEM HCL 125 ML IV SCH ×2 (18:00→22:00)
[2022-06-14] MEDS ORDERED: DILTIAZEM HCL IV 5MG/ML 25 ML VIAL ONE (21:09)
[2022-06-14] MEDS ORDERED: SODIUM CHLORIDE 0.9% 100 ML ONE (21:10)
[2022-06-14] MEDS ORDERED: PHYTONADIONE 1 MG/0.5 ML AMP IM ONE (23:30)
[2022-06-15] VITALS (27 sets, daily range): BP systolic 85–129; BP diastolic 53–107
[2022-06-15] MEDS ORDERED: PHYTONADIONE 1 MG/0.5 ML AMP IM ONE
[2022-06-15] MEDS: DEXMEDETOMIDINE 400MCG/NS100ML 100 ML IV PRN ×4 (02:01→19:41)
[2022-06-15 07:25] LABS: BASOPHILS % 0.1 % (0.0-1.0); EOSINOPHILS # (AUTO) 0.1 (0.0-0.4); EOSINOPHILS % 0.9 % (0.0-6.0); HEMATOCRIT 31.1 % (38.2-49.6); HEMOGLOBIN 9.1 g/dL (14.0-18.0); LYMPHOCYTES # (AUTO) 1.2 (1.0-3.2); LYMPHOCYTES % 18.1 % (18.0-39.1); MEAN CORPUSCULAR HEMOGLOBIN 24.7 pg (28-32); MEAN CORPUSCULAR HGB CONC 29.3 g/dL (31-35); MEAN CORPUSCULAR VOLUME 84.3 fL (81-99); MONOCYTES # (AUTO) 0.6 (0.2-0.8); MONOCYTES % 8.5 % (4.4-11.3); NEUTROPHILS # (AUTO) 4.8 (2.1-6.9); PLATELET COUNT 138 x10e3/uL (140-360); RED BLOOD COUNT 3.69 x10e6/uL (4.3-5.7); RED CELL DISTRIBUTION WIDTH 17.5 % (11.7-14.4)
[2022-06-15 07:53] LABS: ALBUMIN 3.3 g/dL (3.5-5.0); ALBUMIN/GLOBULIN RATIO 1.1 (0.8-2.0); ANION GAP 15.9 mmol/L (8-16); CALCIUM 8.5 mg/dL (8.4-10.2); CREATININE, SERUM 0.87 mg/dL (0.72-1.25); POTASSIUM 4.9 mmol/L (3.5-5.1)
[2022-06-15] MEDS: MIDODRINE HCL 5 MG TABLET PO SCH ×3 (08:00→16:00)
[2022-06-15] MEDS: LACTULOSE SYRUP 20 GM/30 ML UDC PO SCH ×2 (09:00→21:00)
[2022-06-15] MEDS: RIFAXIMIN 550 MG TABLET PO SCH ×2 (09:00→16:16)
[2022-06-15] MEDS ORDERED: ALTEPLASE RECOMBINANT 2 MG/2 ML VIAL IV PRN (09:45)
[2022-06-15] MEDS: OCTREOTIDE ACETATE 500 MCG in SODIUM CHLORIDE 0.9% 250ML 249 ML IV SCH (13:13)
[2022-06-15] MEDS ORDERED: SODIUM PHOSPHATE 30 MMOL in SODIUM CHLORIDE 0.9% 250ML 250 ML IV ONE (16:30)
[2022-06-15] MEDS ORDERED: LACTULOSE SYRUP 20 GM/30 ML UDC RC ONE (16:30)
[2022-06-16] VITALS (25 sets, daily range): BP systolic 91–128; BP diastolic 54–98
[2022-06-16] MEDS: DEXMEDETOMIDINE 400MCG/NS100ML 100 ML IV PRN ×2 (01:27→05:39)
[2022-06-16 06:59] LABS: BASOPHILS % 0.3 % (0.0-1.0); EOSINOPHILS # (AUTO) 0.3 (0.0-0.4); EOSINOPHILS % 3.2 % (0.0-6.0); HEMOGLOBIN 9.6 g/dL (14.0-18.0); LYMPHOCYTES % 12.8 % (18.0-39.1); MEAN CORPUSCULAR HEMOGLOBIN 24.7 pg (28-32); MEAN CORPUSCULAR HGB CONC 29.1 g/dL (31-35); MEAN CORPUSCULAR VOLUME 85.1 fL (81-99); MONOCYTES # (AUTO) 0.6 (0.2-0.8); MONOCYTES % 7.9 % (4.4-11.3); NEUTROPHILS # (AUTO) 5.9 (2.1-6.9); NEUTROPHILS % 75.4 % (38.7-80.0); PLATELET COUNT 143 x10e3/uL (140-360); RED BLOOD COUNT 3.88 x10e6/uL (4.3-5.7); RED CELL DISTRIBUTION WIDTH 18.2 % (11.7-14.4)
[2022-06-16 07:26] LABS: ALBUMIN 3.2 g/dL (3.5-5.0); ANION GAP 14.6 mmol/L (8-16); CALCIUM 8.3 mg/dL (8.4-10.2); CREATININE, SERUM 0.79 mg/dL (0.72-1.25); POTASSIUM 4.6 mmol/L (3.5-5.1)
[2022-06-16] MEDS: MIDODRINE HCL 5 MG TABLET PO SCH ×2 (08:00→12:00)
[2022-06-16] MEDS: OCTREOTIDE ACETATE 500 MCG in SODIUM CHLORIDE 0.9% 250ML 249 ML IV SCH (09:00)
[2022-06-16] MEDS: LACTULOSE SYRUP 20 GM/30 ML UDC PO SCH ×2 (12:08→21:33)
[2022-06-16] MEDS: RIFAXIMIN 550 MG TABLET PO SCH ×2 (12:08→17:57)
[2022-06-16] MEDS ORDERED: SODIUM PHOSPHATE 15 MMOL in SODIUM CHLORIDE 0.9% 250ML 250 ML IV ONE (17:30)
[2022-06-17] VITALS (41 sets, daily range): BP systolic 70–159; BP diastolic 48–139
[2022-06-17] MEDS: OCTREOTIDE ACETATE 500 MCG in SODIUM CHLORIDE 0.9% 250ML 249 ML IV SCH (05:00)
[2022-06-17 06:46] LABS: BASOPHILS % 0.3 % (0.0-1.0); EOSINOPHILS # (AUTO) 0.3 (0.0-0.4); EOSINOPHILS % 4.3 % (0.0-6.0); HEMATOCRIT 32.7 % (38.2-49.6); HEMOGLOBIN 9.6 g/dL (14.0-18.0); LYMPHOCYTES # (AUTO) 1.1 (1.0-3.2); LYMPHOCYTES % 14.2 % (18.0-39.1); MEAN CORPUSCULAR HEMOGLOBIN 24.4 pg (28-32); MEAN CORPUSCULAR HGB CONC 29.4 g/dL (31-35); MEAN CORPUSCULAR VOLUME 83.2 fL (81-99); MONOCYTES # (AUTO) 0.6 (0.2-0.8); MONOCYTES % 8.1 % (4.4-11.3); NEUTROPHILS # (AUTO) 5.8 (2.1-6.9); NEUTROPHILS % 72.7 % (38.7-80.0); PLATELET COUNT 125 x10e3/uL (140-360); RED BLOOD COUNT 3.93 x10e6/uL (4.3-5.7); RED CELL DISTRIBUTION WIDTH 18.4 % (11.7-14.4)
[2022-06-17 07:07] LABS: ALBUMIN 2.8 g/dL (3.5-5.0); ALBUMIN/GLOBULIN RATIO 0.9 (0.8-2.0); CALCIUM 8.2 mg/dL (8.4-10.2); CREATININE, SERUM 0.74 mg/dL (0.72-1.25)
[2022-06-17] MEDS: RIFAXIMIN 550 MG TABLET PO SCH ×2 (08:19→17:02)
[2022-06-17] MEDS: LACTULOSE SYRUP 20 GM/30 ML UDC PO SCH ×3 (08:19→20:28)
[2022-06-17] MEDS ORDERED: METOPROLOL TARTRATE INJ 1 MG/ML VIAL IV PRN (08:30)
[2022-06-17] MEDS ORDERED: DILTIAZEM HCL 125 ML IV SCH (10:00)
[2022-06-17] MEDS: DILTIAZEM HCL IV SOLN 125 MG in SODIUM CHLORIDE 0.9% 100 ML IV SCH (10:08)
[2022-06-17] MEDS: ONDANSETRON HCL INJ 2MG/ML 2ML 2 MG/ML VIAL IV PRN (21:34)
[2022-06-18] VITALS (42 sets, daily range): BP systolic 99–135; BP diastolic 63–106
[2022-06-18 06:59] LABS: ALBUMIN 2.5 g/dL (3.5-5.0); ALBUMIN/GLOBULIN RATIO 0.9 (0.8-2.0); ANION GAP 11.7 mmol/L (8-16); CALCIUM 7.7 mg/dL (8.4-10.2); CREATININE, SERUM 0.64 mg/dL (0.72-1.25); POTASSIUM 3.7 mmol/L (3.5-5.1)
[2022-06-18 07:07] LABS: BASOPHILS % 0.3 % (0.0-1.0); EOSINOPHILS # (AUTO) 0.3 (0.0-0.4); HEMATOCRIT 31.3 % (38.2-49.6); HEMOGLOBIN 9.5 g/dL (14.0-18.0); LYMPHOCYTES # (AUTO) 1.1 (1.0-3.2); MEAN CORPUSCULAR HEMOGLOBIN 24.7 pg (28-32); MEAN CORPUSCULAR HGB CONC 30.4 g/dL (31-35); MEAN CORPUSCULAR VOLUME 81.5 fL (81-99); MONOCYTES # (AUTO) 0.8 (0.2-0.8); MONOCYTES % 8.7 % (4.4-11.3); NEUTROPHILS # (AUTO) 6.5 (2.1-6.9); NEUTROPHILS % 74.4 % (38.7-80.0); PLATELET COUNT 135 x10e3/uL (140-360); RED BLOOD COUNT 3.84 x10e6/uL (4.3-5.7); RED CELL DISTRIBUTION WIDTH 19.2 % (11.7-14.4)
[2022-06-18] MEDS: DILTIAZEM HCL IV SOLN 125 MG in SODIUM CHLORIDE 0.9% 100 ML IV SCH (07:24)
[2022-06-18] MEDS: RIFAXIMIN 550 MG TABLET PO SCH ×3 (08:17→17:36)
[2022-06-18] MEDS: LACTULOSE SYRUP 20 GM/30 ML UDC PO SCH ×3 (08:17→20:35)
[2022-06-18] MEDS: DILTIAZEM HCL 60 MG TAB PO SCH ×3 (10:38→22:00)
[2022-06-18] MEDS ORDERED: SIMETHICONE 80 MG CHEW PO ONE (20:30)
[2022-06-18] MEDS ORDERED: ZOLPIDEM TARTRATE 10 MG TAB PO ONE (20:30)
[2022-06-19] VITALS (13 sets, daily range): BP systolic 103–139; BP diastolic 63–103
[2022-06-19] MEDS: DILTIAZEM HCL 60 MG TAB PO SCH ×4 (06:29→22:00)
[2022-06-19 07:04] LABS: BASOPHILS # (AUTO) 0.1 (0.0-0.1); BASOPHILS % 0.5 % (0.0-1.0); EOSINOPHILS # (AUTO) 0.3 (0.0-0.4); EOSINOPHILS % 3.3 % (0.0-6.0); HEMATOCRIT 31.5 % (38.2-49.6); HEMOGLOBIN 9.5 g/dL (14.0-18.0); LYMPHOCYTES # (AUTO) 1.3 (1.0-3.2); LYMPHOCYTES % 12.6 % (18.0-39.1); MEAN CORPUSCULAR HEMOGLOBIN 24.9 pg (28-32); MEAN CORPUSCULAR HGB CONC 30.2 g/dL (31-35); MEAN CORPUSCULAR VOLUME 82.7 fL (81-99); MONOCYTES # (AUTO) 0.9 (0.2-0.8); MONOCYTES % 8.5 % (4.4-11.3); NEUTROPHILS # (AUTO) 7.4 (2.1-6.9); NEUTROPHILS % 74.4 % (38.7-80.0); PLATELET COUNT 145 x10e3/uL (140-360); RED BLOOD COUNT 3.81 x10e6/uL (4.3-5.7); RED CELL DISTRIBUTION WIDTH 20.7 % (11.7-14.4)
[2022-06-19 07:29] LABS: ALBUMIN 2.5 g/dL (3.5-5.0); ALBUMIN/GLOBULIN RATIO 0.8 (0.8-2.0); ANION GAP 13.9 mmol/L (8-16); CALCIUM 8.2 mg/dL (8.4-10.2); CREATININE, SERUM 0.64 mg/dL (0.72-1.25); POTASSIUM 3.9 mmol/L (3.5-5.1)
[2022-06-19 07:31] LABS: INR 1.58; PROTHROMBIN TIME 19.4 seconds (11.9-14.5)
[2022-06-19] MEDS: LACTULOSE SYRUP 20 GM/30 ML UDC PO SCH ×3 (08:13→21:59)
[2022-06-19] MEDS: RIFAXIMIN 550 MG TABLET PO SCH ×3 (08:13→17:39)
[2022-06-19] MEDS: DILTIAZEM HCL IV SOLN 125 MG in SODIUM CHLORIDE 0.9% 100 ML IV SCH (10:00)
[2022-06-19] MEDS: VALSARTAN/SACUBITRIL 24MG/26MG 1 EA TAB PO SCH (17:39)
[2022-06-19] MEDS: METOPROLOL TARTRATE 25 MG TAB PO SCH (17:39)
[2022-06-20] VITALS: BP 113/86
[2022-06-20 04:00] VITALS: BP 111/61
[2022-06-20] MEDS: DILTIAZEM HCL 60 MG TAB PO SCH ×2 (05:56→13:56)
[2022-06-20 06:16] LABS: BASOPHILS # (AUTO) 0.1 (0.0-0.1); BASOPHILS % 0.5 % (0.0-1.0); EOSINOPHILS # (AUTO) 0.4 (0.0-0.4); EOSINOPHILS % 4.3 % (0.0-6.0); HEMATOCRIT 33.2 % (38.2-49.6); LYMPHOCYTES # (AUTO) 1.3 (1.0-3.2); LYMPHOCYTES % 14.1 % (18.0-39.1); MEAN CORPUSCULAR HEMOGLOBIN 24.6 pg (28-32); MEAN CORPUSCULAR HGB CONC 30.1 g/dL (31-35); MEAN CORPUSCULAR VOLUME 81.8 fL (81-99); MONOCYTES # (AUTO) 0.9 (0.2-0.8); MONOCYTES % 9.2 % (4.4-11.3); NEUTROPHILS # (AUTO) 6.6 (2.1-6.9); NEUTROPHILS % 71.1 % (38.7-80.0); PLATELET COUNT 178 x10e3/uL (140-360); RED BLOOD COUNT 4.06 x10e6/uL (4.3-5.7); RED CELL DISTRIBUTION WIDTH 20.8 % (11.7-14.4)
[2022-06-20 06:39] LABS: ALBUMIN 2.3 g/dL (3.5-5.0); ALBUMIN/GLOBULIN RATIO 0.7 (0.8-2.0); CALCIUM 7.9 mg/dL (8.4-10.2); CREATININE, SERUM 0.56 mg/dL (0.72-1.25)
[2022-06-20] MEDS: DILTIAZEM HCL IV SOLN 125 MG in SODIUM CHLORIDE 0.9% 100 ML IV SCH (08:06)
[2022-06-20] MEDS: LACTULOSE SYRUP 20 GM/30 ML UDC PO SCH ×2 (08:11→13:55)
[2022-06-20] MEDS: METOPROLOL TARTRATE 25 MG TAB PO SCH ×2 (08:11→17:44)
[2022-06-20] MEDS: VALSARTAN/SACUBITRIL 24MG/26MG 1 EA TAB PO SCH ×2 (08:11→17:44)
[2022-06-20 08:14] VITALS: BP 136/88
[2022-06-20] MEDS: RIFAXIMIN 550 MG TABLET PO SCH ×2 (09:00→17:44)
[2022-06-20 11:25] VITALS: BP 108/78
[2022-06-20 15:49] VITALS: BP 111/77
[2022-06-20 16:24] VITALS: BP 111/77
[2022-06-20] MEDS ORDERED: PHENAZOPYRIDINE HCL 100 MG TAB PO ONE (17:45)
[2022-06-20] MEDS ORDERED: DEXTROSE 50%-WA50 M1 IV (18:48)
[2022-06-20] MEDS ORDERED: CARDIZEM60 MG PO (18:48)
[2022-06-20] MEDS ORDERED: ONDANSETRON4 MG/2 M1 IV (18:48)
[2022-06-20] MEDS ORDERED: LOPRESSOR25 MG PO (18:48)
[2022-06-20] MEDS ORDERED: Valsartan/Sacubitril 24MG/26MG PO (18:48)
[2022-06-20] MEDS ORDERED: XIFAXAN550 MG PO (18:48)
[2022-06-20] MEDS ORDERED: Metoprolol Tartrate Inj IV (18:48)
[2022-06-20] MEDS ORDERED: LACTULOSE20 GM/30 M PO (18:48)
[2022-06-20] MEDS ORDERED: PROTONIX IV40 MG IV (18:48)
[2022-06-20] MEDS ORDERED: ONDANSETRON HCL 4 MG ORAL DISINTEGRATING TAB PO PRN (19:00)
[2022-06-21] MEDS ORDERED: PANTOPRAZOLE SOD 40 MG TABEC PO SCH (07:30)
== END 2022-06-20 19:27 | disposition short-term general hospital (02) | DRG 291 ==
LOC: ER 10:20 → ERHOLD 12:53 → ICU 06-11 12:32 → MED/SURG 06-14 12:21 → IMCU 06-14 15:16 → ICU 06-14 22:18 → IMCU 06-19 11:21
PROVIDERS: ADMIT Internal Medicine; ATTEND Internal Medicine
PROC: 02HV33Z Insertion of Infusion Device into Superior Vena Cava, Percutaneous Approach (ICD-10-PCS; principal; 2022-06-10)
DX: I11.0 Hypertensive heart disease with heart failure (principal); I50.23 Acute on chronic systolic (congestive) heart failure; D68.9 Coagulation defect, unspecified; E87.20 Acidosis, unspecified; N17.9 Acute kidney failure, unspecified; I48.20 Chronic atrial fibrillation, unspecified; Z68.42 Body mass index [BMI] 45.0-49.9, adult; K70.40 Alcoholic hepatic failure without coma; I42.8 Other cardiomyopathies; K76.1 Chronic passive congestion of liver; G47.33 Obstructive sleep apnea (adult) (pediatric); I48.91 Unspecified atrial fibrillation; Z79.01 Long term (current) use of anticoagulants; Z98.84 Bariatric surgery status; Z86.718 Personal history of other venous thrombosis and embolism; E87.5 Hyperkalemia; K76.82 Hepatic encephalopathy; R94.5 Abnormal results of liver function studies; N14.11 Contrast-induced nephropathy; T50.8X5A Adverse effect of diagnostic agents, initial encounter; E83.39 Other disorders of phosphorus metabolism; E66.01 Morbid (severe) obesity due to excess calories; D64.9 Anemia, unspecified; T45.515A Adverse effect of anticoagulants, initial encounter; Z74.09 Other reduced mobility; Z95.810 Presence of automatic (implantable) cardiac defibrillator; Z20.822 Contact with and (suspected) exposure to COVID-19
CPT/HCPCS: 36415; 36569; 36600; 51700; 70450; 71045; 74177; 76700; 76705; 80048; 80053; 80329; 81001; 82140; 82248; 82550; 82553; 82570; 82805; 82948; 83010; 83605; 83615; 83735; 83880; 84100; 84155; 84156; 84300; 84484; 85025; 85045; 85610; 85730; 86850; 86900; 87040; 87086; 93005; 93306; 94660; 94799; 95819; 96360; 99252; 99284; J1940; J2353; J2354; J2405; J2543; J2997; J3430; J7040; J7050; J7799; P9017; P9047; Q9967

== ENCOUNTER → 2024-01-10 | Day surgery (SDC) | payer OTHER ==
[2024-01-08 12:27] LABS: BASOPHILS % 0.2 % (0.0-1.0); EOSINOPHILS # (AUTO) 0.2 (0.0-0.4); EOSINOPHILS % 4.1 % (0.0-6.0); HEMATOCRIT 39.8 % (38.2-49.6); HEMOGLOBIN 12.5 g/dL (14.0-18.0); LYMPHOCYTES # (AUTO) 1.8 (1.0-3.2); LYMPHOCYTES % 31.4 % (18.0-39.1); MEAN CORPUSCULAR HEMOGLOBIN 29.6 pg (28-32); MEAN CORPUSCULAR HGB CONC 31.4 g/dL (31-35); MEAN CORPUSCULAR VOLUME 94.1 fL (81-99); MONOCYTES # (AUTO) 0.4 (0.2-0.8); MONOCYTES % 6.3 % (4.4-11.3); NEUTROPHILS # (AUTO) 3.2 (2.1-6.9); NEUTROPHILS % 57.6 % (38.7-80.0); PLATELET COUNT 174 x10e3/uL (140-360); RED BLOOD COUNT 4.23 x10e6/uL (4.3-5.7); RED CELL DISTRIBUTION WIDTH 13.8 % (11.7-14.4); WHITE BLOOD COUNT 5.58 x10e3/uL (4.8-10.8)
[~2024-01-10] MED LIST changes: +CARDIZEM60 MG PO; +DEXTROSE 50%-WA50 M1 IV; +ETOMIDATE 2 MG/ML 10 ML INJ IV ONE; +LACTATED RINGER'S 1,000 ML ONE; +LACTULOSE20 GM/30 M PO; +LIDOCAINE HCL 2% LOCAL INJ 5 ML SDV VIAL INJ ONE; +LOSARTAN POTASS25 MG PO; +METOPROLOL SUCC50 MG PO; +Metoprolol Tartrate Inj IV; +ONDANSETRON4 MG/2 M1 IV; +POTASSIUM CHLO20 ME1 PO; +PROPAFENONE HC325 MG PO; +PROPOFOL IV EMULSION 50 ML IV ONE; +PROTONIX IV40 MG IV; +QUETIAPINE FUMA50 MG PO; +SPIRONOLACTONE25 MG PO; +Valsartan/Sacubitril 24MG/26MG PO; +XIFAXAN550 MG PO
[2024-01-10 12:45] VITALS: BP 124/87; PULSE 85; RESP 16; O2SAT 98
== END | disposition home or self-care (01) ==
LOC: OR 09:29
PROVIDERS: ATTEND Internal Medicine Gastroenterology
DX: Z12.11 Encounter for screening for malignant neoplasm of colon (principal); K59.00 Constipation, unspecified; K64.8 Other hemorrhoids; K25.9 Gastric ulcer, unspecified as acute or chronic, without hemorrhage or perforation; Z98.84 Bariatric surgery status; G47.33 Obstructive sleep apnea (adult) (pediatric); I48.91 Unspecified atrial fibrillation; I50.9 Heart failure, unspecified; N28.9 Disorder of kidney and ureter, unspecified; H91.90 Unspecified hearing loss, unspecified ear; K75.9 Inflammatory liver disease, unspecified; F17.200 Nicotine dependence, unspecified, uncomplicated; Z01.810 Encounter for preprocedural cardiovascular examination; Z01.812 Encounter for preprocedural laboratory examination; Z79.02 Long term (current) use of antithrombotics/antiplatelets; Z79.899 Other long term (current) drug therapy
CPT/HCPCS: 36415; 45378; 85025; 93005; J2003; J2704; J7121

== ENCOUNTER 2024-06-05 11:42 | Emergency (ER) | payer OTHER ==
[~2024-06-05] VITALS: Ht 175.3 cm; Wt 125.2 kg
[~2024-06-05 11:42] MED LIST changes: -ETOMIDATE 2 MG/ML 10 ML INJ IV ONE; -LACTATED RINGER'S 1,000 ML ONE; -LIDOCAINE HCL 2% LOCAL INJ 5 ML SDV VIAL INJ ONE; -PROPOFOL IV EMULSION 50 ML IV ONE
[2024-06-05 12:13] VITALS: TEMP 97.6
[2024-06-05 12:55] LABS: BASOPHILS % 0.4 % (0.0-1.0); EOSINOPHILS # (AUTO) 0.1 (0.0-0.4); EOSINOPHILS % 1.1 % (0.0-6.0); HEMATOCRIT 33.6 % (38.2-49.6); LYMPHOCYTES % 30.2 % (18.0-39.1); MEAN CORPUSCULAR HEMOGLOBIN 29.4 pg (28-32); MEAN CORPUSCULAR HGB CONC 32.7 g/dL (31-35); MEAN CORPUSCULAR VOLUME 89.8 fL (81-99); MONOCYTES # (AUTO) 0.4 (0.2-0.8); MONOCYTES % 4.4 % (4.4-11.3); NEUTROPHILS # (AUTO) 6.3 (2.1-6.9); NEUTROPHILS % 63.5 % (38.7-80.0); PLATELET COUNT 243 x10e3/uL (140-360); RED BLOOD COUNT 3.74 x10e6/uL (4.3-5.7); RED CELL DISTRIBUTION WIDTH 14.1 % (11.7-14.4); WHITE BLOOD COUNT 9.91 x10e3/uL (4.8-10.8)
[2024-06-05 13:05] LABS: INR 1.1; PROTHROMBIN TIME 14.9 seconds (11.9-14.5)
[2024-06-05 13:06] LABS: PARTIAL THROMBOPLASTIN TIME 26.4 seconds (23.8-35.5)
[2024-06-05 13:14] LABS: ALBUMIN 3.4 g/dL (3.5-5.0); ALBUMIN/GLOBULIN RATIO 1.2 (0.8-2.0); ANION GAP 14.2 mmol/L (8-16); CALCIUM 8.5 mg/dL (8.4-10.2); CREATININE, SERUM 0.93 mg/dL (0.72-1.25); TOTAL PROTEIN 6.3 g/dL (6.5-8.1)
[2024-06-05 13:17] LABS: POTASSIUM 5.2 mmol/L (3.5-5.1)
[2024-06-05] MEDS ORDERED: IOPAMIDOL 370 MG/ML 100 ML INFUS..BTL INJ ONE (13:44)
[2024-06-05] MEDS: SODIUM CHLORIDE 0.9% 1000ML 1,000 ML IV STA (14:02)
[2024-06-05] MEDS: ONDANSETRON HCL INJ 2MG/ML 2ML 2 MG/ML VIAL IV STA (14:02)
[2024-06-05 15:06] VITALS: PULSE 108; RESP 17; O2SAT 98
[2024-06-05] MEDS ORDERED: DICYCLOMINE HCL20 MG PO (16:40)
== END 2024-06-05 17:05 | disposition home or self-care (01) ==
LOC: ER 12:18
DX: K62.5 Hemorrhage of anus and rectum (principal); R55 Syncope and collapse; I10 Essential (primary) hypertension; I50.9 Heart failure, unspecified; I48.91 Unspecified atrial fibrillation; K21.9 Gastro-esophageal reflux disease without esophagitis; Z86.718 Personal history of other venous thrombosis and embolism; Z98.84 Bariatric surgery status; Z98.0 Intestinal bypass and anastomosis status
CPT/HCPCS: 36415; 74177; 80048; 80053; 83880; 84484; 85025; 85610; 85730; 86850; 86900; 99284; J2405; J7030; Q9967

== ENCOUNTER → 2024-06-11 | Day surgery (SDC) | payer OTHER ==
[2024-06-09 12:38] LABS: BASOPHILS % 0.5 % (0.0-1.0); EOSINOPHILS # (AUTO) 0.2 (0.0-0.4); EOSINOPHILS % 2.5 % (0.0-6.0); HEMATOCRIT 25.9 % (38.2-49.6); HEMOGLOBIN 8.3 g/dL (14.0-18.0); LYMPHOCYTES % 31.8 % (18.0-39.1); MEAN CORPUSCULAR HEMOGLOBIN 29.5 pg (28-32); MEAN CORPUSCULAR VOLUME 92.2 fL (81-99); MONOCYTES # (AUTO) 0.4 (0.2-0.8); NEUTROPHILS # (AUTO) 3.8 (2.1-6.9); PLATELET COUNT 174 x10e3/uL (140-360); RED BLOOD COUNT 2.81 x10e6/uL (4.3-5.7); RED CELL DISTRIBUTION WIDTH 14.9 % (11.7-14.4); WHITE BLOOD COUNT 6.36 x10e3/uL (4.8-10.8)
[2024-06-09 12:54] LABS: INR 0.97; PROTHROMBIN TIME 13.5 seconds (11.9-14.5)
[2024-06-09 12:55] LABS: PARTIAL THROMBOPLASTIN TIME 27.9 seconds (23.8-35.5)
[2024-06-09 13:03] LABS: ALBUMIN 3.3 g/dL (3.5-5.0); ALBUMIN/GLOBULIN RATIO 1.2 (0.8-2.0); ANION GAP 11.8 mmol/L (8-16); CALCIUM 8.3 mg/dL (8.4-10.2); CREATININE, SERUM 0.77 mg/dL (0.72-1.25); POTASSIUM 3.8 mmol/L (3.5-5.1)
[~2024-06-11] MED LIST changes: +BENZOCAINE/TETRACAINE/BUTAMBEN AERO SPRAY 56 GM CAN ONE; +DICYCLOMINE HCL20 MG PO; +ESMOLOL HCL 100MG/10ML 10 MG/ML VIAL ONE; +FENTANYL CITRATE/PF 100MCG/2 ML INJ ONE; +GLUCAGON FOR INJ 1 MG VIAL ONE; +HYOSCYAMINE SULFATE 0.5 MG/ML INJ ONE; +LACTATED RINGER'S 1,000 ML ONE; +LIDOCAINE HCL 2% LOCAL INJ 5 ML SDV VIAL INJ ONE; +METOCLOPRAMIDE HCL 10 MG/2ML VIAL ONE; +PROPOFOL IV EMULSION 10 MG/ML 20 ML VIAL ONE; +PROPOFOL IV EMULSION 50 ML IV ONE
[2024-06-11 11:35] LABS: BASOPHILS % 0.3 % (0.0-1.0); EOSINOPHILS # (AUTO) 0.2 (0.0-0.4); EOSINOPHILS % 2.7 % (0.0-6.0); HEMATOCRIT 23.2 % (38.2-49.6); HEMOGLOBIN 7.7 g/dL (14.0-18.0); LYMPHOCYTES # (AUTO) 1.8 (1.0-3.2); LYMPHOCYTES % 30.6 % (18.0-39.1); MEAN CORPUSCULAR HEMOGLOBIN 29.4 pg (28-32); MEAN CORPUSCULAR HGB CONC 33.2 g/dL (31-35); MEAN CORPUSCULAR VOLUME 88.5 fL (81-99); MONOCYTES # (AUTO) 0.4 (0.2-0.8); MONOCYTES % 5.8 % (4.4-11.3); NEUTROPHILS # (AUTO) 3.6 (2.1-6.9); NEUTROPHILS % 60.4 % (38.7-80.0); PLATELET COUNT 194 x10e3/uL (140-360); RED BLOOD COUNT 2.62 x10e6/uL (4.3-5.7); RED CELL DISTRIBUTION WIDTH 14.7 % (11.7-14.4); WHITE BLOOD COUNT 5.99 x10e3/uL (4.8-10.8)
[2024-06-11 14:45] VITALS: BP 120/77; PULSE 77; RESP 16; O2SAT 99
== END | disposition home or self-care (01) ==
LOC: OR 10:55
PROVIDERS: ATTEND Internal Medicine Gastroenterology
DX: K62.5 Hemorrhage of anus and rectum (principal); K25.9 Gastric ulcer, unspecified as acute or chronic, without hemorrhage or perforation; Z98.84 Bariatric surgery status; K59.00 Constipation, unspecified; K64.8 Other hemorrhoids; D64.9 Anemia, unspecified; I48.91 Unspecified atrial fibrillation; I49.3 Ventricular premature depolarization; I11.0 Hypertensive heart disease with heart failure; I50.9 Heart failure, unspecified; E66.01 Morbid (severe) obesity due to excess calories; Z01.810 Encounter for preprocedural cardiovascular examination; Z01.812 Encounter for preprocedural laboratory examination; Z79.02 Long term (current) use of antithrombotics/antiplatelets; Z79.899 Other long term (current) drug therapy; Z68.41 Body mass index [BMI] 40.0-44.9, adult; Z71.3 Dietary counseling and surveillance; Z86.711 Personal history of pulmonary embolism
CPT/HCPCS: 36415 ×2; 43235; 45378; 80053; 85025 ×2; 85610; 85730; 93005; J1610; J1980; J2003; J2470; J2704 ×2; J2765; J3010; J7121; 43239

== ENCOUNTER → 2024-07-02 | Outpatient (REF) | payer OTHER ==
[~2024-07-02] MED LIST changes: -BENZOCAINE/TETRACAINE/BUTAMBEN AERO SPRAY 56 GM CAN ONE; -ESMOLOL HCL 100MG/10ML 10 MG/ML VIAL ONE; -FENTANYL CITRATE/PF 100MCG/2 ML INJ ONE; -GLUCAGON FOR INJ 1 MG VIAL ONE; -HYOSCYAMINE SULFATE 0.5 MG/ML INJ ONE; -LACTATED RINGER'S 1,000 ML ONE; -LIDOCAINE HCL 2% LOCAL INJ 5 ML SDV VIAL INJ ONE; -METOCLOPRAMIDE HCL 10 MG/2ML VIAL ONE; -PROPOFOL IV EMULSION 10 MG/ML 20 ML VIAL ONE; -PROPOFOL IV EMULSION 50 ML IV ONE
== END ==
LOC: DX 08:43
PROVIDERS: ATTEND Nurse Practitioner
DX: D64.9 Anemia, unspecified (principal)
CPT/HCPCS: 74250